=== PATIENT | female | born 1955 | race Caucasian/White ===

== ENCOUNTER 2018-01-24 13:43 | Emergency (ER) | payer MEDICARE, MEDICAID ==
[2018-01-24 14:46] LABS: ABS Basophils 0.1 10^3/ul (0-0.2); ABS Eosinophils 0.2 10^3/ul (0-0.6); ABS Lymphocytes 2.1 10^3/ul (1.0-4.8); ABS Monocytes 0.6 10^3/ul (0-0.8); ABS Neutrophils 5.1 10^3/ul (1.5-7.7); ABS Nucleated RBC 0 10^3/ul; Eosinophil % 2.3 % (0-6); Hematocrit 37 % (35-47); Hemoglobin 12.3 g/dl (12.0-16.0); Mean Corpuscular HGB Conc 33 g/dl (31-36); Mean Corpuscular Hemoglobin 30 pg (27-31); Mean Corpuscular Volume 92 fL (80-97); Mean Platelet Volume 8 um3 (7.4-10.4); Nucleated Red Blood Cells % 0; Platelet Count 263 10^3/ul (150-450); Red Blood Count 4.07 10^6/ul (4.0-5.4); Red Cell Distribution Width 14 % (10.5-15); White Blood Count 8.1 10^3/ul (3.5-10.8)
[2018-01-24 15:48] LABS: Urine Appearance Cloudy; Urine Blood Negative (Negative); Urine Color Yellow; Urine Ketones Negative (Negative); Urine Protein 1+(30 mg/dL) (Negative); Urine Specific Gravity 1.018 (1.010-1.030); Urine Urobilinogen Negative (Negative)
[2018-01-24 20:54] LABS: EGFR Non-African American 32.9 (>60)
--- NOTE | 2018-01-24 22:42 | ED ---
I, Estrellita Ocampo, scribed for Chelsey Crum MD on 01/24/18 at 2238 . Progress - Progress Note Progress Note: The pt is a sign out from Dr. Key at shift change at 19:00. - Consult/PCP Time Called: 01:45 Course/Dx - Course Course Of Treatment: The pt was discharged by [facility] at 22:38. - Diagnoses Provider Diagnoses: Adjustment disorder The documentation as recorded by the Terrence vines Stephanie accurately reflects the service I personally performed and the decisions made by , Chelsey Crum MD.
[2018-01-25 00:18] VITALS: BP 0/0
== END 2018-01-24 22:50 ==
LOC: ED 13:43
DX: F43.20 Adjustment disorder, unspecified (principal)
CPT/HCPCS: 36415; 80053; 80307; 80320; 81003; 81015; 84443; 85025; 93005; 99285; G0480

== ENCOUNTER 2019-03-08 16:52 | Inpatient (IN) | payer MEDICARE, MEDICAID ==
[2019-03-08] MEDS ORDERED: NS 0.9% 1000 ML** 1,000 ML IV ONE ×2 (17:03→18:10)
[2019-03-08] MEDS ORDERED: Albuterol 0.5% CONC NEB.SOL* 5 MG/ML 20 ml BOT INH ONE (17:07)
[2019-03-08] MEDS ORDERED: methylPREDNISolone SOD 40 MG* 1 ML VIAL IV ONE (17:12)
--- NOTE | 2019-03-08 17:14 | ED ---
Syncope/Near Syncope - HPI Summary HPI Summary: Patient is a 63 y/o F presenting to ED via ambulance with complaints of SOB, witnessed syncope, diaphoresis. EMS arrived at 1652 with patient, provider in room immediately to evaluate. EMS reports the patient experienced a syncopal episode at around 1610 while shopping in [facility]. EMS states that the patient has been "in-and-out of consciousness", had +4 episodes of syncope that would last around 30 seconds, with later episodes progressively growing in length of time. Bruising to knees bilaterally is noted as well. Patient later became SOB, EMS reports normal EKG, 176 BG, BP was 80/50s, patient was given a duoneb. PMHx of asthma, patient reports that she had been intubated for asthma previously. EMS reports audible wheezes. In room, BP is 64/47, pulse 106, 97.7 F, o2 sat 99 on 15 L. Periods of apnea are noted in the room. Level 5 caveat due to extremis. Home medications and allergies are reviewed. Home Medications Gabapentin CAP(*) [Neurontin 400 mg CAP(*)] 800 mg PO QID 03/08/19 [History Confirmed 03/08/19] Lisinopril TAB* [Prinivil TAB*] 5 mg PO DAILY 03/08/19 [History Confirmed ] Polyethylene Glycol 3350* [Miralax*] 17 gm PO DAILY 03/08/19 [History Confirmed 03/08/19] Zolpidem TAB* [Ambien TAB*] 10 mg PO BEDTIME PRN 03/08/19 [History Confirmed ] dilTIAZem HCl [Cartia Xt] 120 mg PO DAILY 03/08/19 [History Confirmed 03/08/19] Allergies Allergy/AdvReac Type Severity Reaction Status Date / Time ibuprofen Allergy Severe Swelling Verified 02/04/19 14:11 Of Face,Lips,& Throat latex Allergy Severe rash, red Verified 02/04/19 14:11 patches - History Of Current Complaint Time Seen by Provider: 03/08/19 16:58 Hx Obtained From: EMS Hx From Patient Unobtainable Due To: Extremis - LEVEL 5 CAVEAT Onset/Duration: Lasting Hours - onset around 1610 today, Still Present Timing: Intermittent Episode Lasting - syncope episodes lasted around 30 seconds Context: Witnessed Activity At Onset: Other - shopping at [employer] Aggravating Factor(s): Nothing Alleviating Factor(s): Nothing Associated Signs And Symptoms: Diaphoresis, Shortness Of Breath, Other - bilateral knee bruises - Allergies/Home Medications Allergies/Adverse Reactions: Allergies Allergy/AdvReac Type Severity Reaction Status Date / Time ibuprofen Allergy Severe Swelling Verified 02/04/19 14:11 Of Face,Lips,& Throat latex Allergy Severe rash, red Verified 02/04/19 14:11 patches Home Medications: Home Medications Gabapentin CAP(*) [Neurontin 400 mg CAP(*)] 800 mg PO QID 03/08/19 [History Confirmed 03/08/19] Lisinopril TAB* [Prinivil TAB*] 5 mg PO DAILY 03/08/19 [History Confirmed ] Polyethylene Glycol 3350* [Miralax*] 17 gm PO DAILY 03/08/19 [History Confirmed 03/08/19] Zolpidem TAB* [Ambien TAB*] 10 mg PO BEDTIME PRN 03/08/19 [History Confirmed ] dilTIAZem HCl [Cartia Xt] 120 mg PO DAILY 03/08/19 [History Confirmed 03/08/19] PMH/Surg Hx/FS Hx/Imm Hx Previously Healthy: No - UNKNOWN, LEVEL 5 CAVEAT DUE TO EXTREMIS Endocrine/Hematology History: Reports: Hx Anemia Denies: Hx Diabetes Cardiovascular History: Reports: Hx Coronary Artery Disease - STATES LEGS ARE SENSITIVE TO TOUCH, HANDS COOL, Hx Hypertension - ON MEDICATION FOR Denies: Hx Pacemaker/ICD Respiratory History: Reports: Hx Asthma - ROUTINE AND PRN INHALER GI History: Reports: Hx Gastroesophageal Reflux Disease Denies: Hx Jaundice History: Reports: Hx Acute Renal Failure, Hx Kidney Infection - HX OF, Hx Renal Disease - STAGE III, Other Problems/Disorders - CHRONIC KIDNEY DISEASE - DR. VELOZ FOLLOWS Musculoskeletal History: Reports: Hx Arthritis - all through body Denies: Hx Osteoporosis Sensory History: Reports: Hx Contacts or Glasses - glasses Denies: Hx Hearing Aid Opthamlomology History: Reports: Hx Contacts or Glasses - glasses Neurological History: Reports: Other Neuro Impairments/Disorders - STATE TWITCHES A LOT- STATES NOT KNEE- STATES PMD AWARE Psychiatric History: Reports: Hx Anxiety, Hx Depression Denies: Hx Eating Disorder, Hx Panic Disorder - Cancer History Hx Chemotherapy: No - Surgical History Surgery Procedure, Year, and Place: LEFT total knee replacement. right total knee replacment 2013. cornia tear repair both eyes 2011 Hx Anesthesia Reactions: No - Immunization History Date of Tetanus Vaccine: up to date per pt - Family History Known Family History: Positive: Unknown - LEVEL 5 CAVEAT DUE TO EXTREMIS - Social History Alcohol Use: Occasionally Substance Use Type: Reports: Prescribed, Other Substance Use Comment - Amount & Last Used: prescription meds Smoking Status (MU): Never Smoked Tobacco Have You Smoked in the Last Year: No Review of Systems - ROS Summary Review of Systems Summary: LEVEL 5 CAVEAT, EXTREMIS Positive: Skin Diaphoresis Positive: Shortness Of Breath Positive: Bruising - BILATERAL AT KNEES Positive: Syncope All Other Systems Reviewed And Are Negative: No - Comments Additional Review of Systems Comments: LEVEL 5 CAVEAT, EXTREMIS Physical Exam - Summary Physical Exam Summary: Appearance: Ill-appearing, no apparent pain distress, obese, severe respiratory distress, intermittent periods of drowsiness and decreased responsiveness ; hypotension Skin: Warm, color reflects adequate perfusion, dry Head: Normal Head/Face inspection, atraumatic Eyes: Conjunctiva clear ENT: Normal inspection Neck: Supple, no nodes, no JVD Respiratory: Audible wheezes, diffuse expiratory wheezes throughout Cardio: RRR, No murmur, pulses normal, brisk capillary refill Abdomen: Soft, nontender Bowel sounds: Present Musculoskeletal: Strength Intact/ROM intact, no calf tenderness, no edema. Psychological: Normal Neuro: Alert, muscle tone normal, no focal deficit; unable to provide full history due to intermittent unresponsiveness and extremis due to respiratory distress; GCS 14 Triage Information Reviewed: Yes Vital Signs On Initial Exam: Initial Vitals Temp Pulse Resp BP Pulse Ox 97.7 F 105 32 82/60 99 03/08/19 17:17 03/08/19 17:17 03/08/19 17:17 03/08/19 17:17 03/08/19 17:17 Vital Signs Reviewed: Yes Completion Of Physical Exam Limited Due To: Extremis, Level 5 - Broseley Coma Scale Best Eye Response: 4 - Spontaneous Best Motor Response: 6 - Obeys Commands Best Verbal Response: 4 - Confused Coma Scale Total: 14 Diagnostics - Laboratory Result Diagrams: 03/08/19 17:12 03/08/19 17:12 Lab Statement: Any lab studies that have been ordered have been reviewed, and results considered in the medical decision making process. - Radiology CXR Radiology Interpretation Completed By: Radiologist Summary of Radiographic Findings: IMPRESSION: No radiographic evidence for acute cardiopulmonary abnormality on this. portable chest x-ray. This report was reviewed by Dr. Yost. - CT BRAIN CT CT Interpretation Completed By: Radiologist Summary of CT Findings: IMPRESSION: 1. No acute intracranial abnormality. 2. Maxillary paranasal sinusitis. This report was reviewed by Dr. Yost. - EKG 1753 Cardiac Rate: NL - rate of 94 BPM EKG Rhythm: Sinus Rhythm ST Segment: Non-Specific Ectopy: None Summary of EKG Findings: EKG showed sinus rhythm with rate of 94 BPM, normal AVIVCT, normal QTc, left axis deviation (-37), non-specific ST, no ectopy. Re-Evaluation - Re-Evaluation First Eval Re-Evaluation Time: 17:20 Comment: Quincy Avelar arrived in ED, he reports that patient has a mental health history and that he has power of county attorney for patient. Course/Dx Course Of Treatment: Patient is a 63 y/o F presenting to ED via ambulance with complaints of SOB, witnessed syncope, diaphoresis. EMS arrived at 1652 with patient, provider in room immediately to evaluate. EMS reports the patient experienced a syncopal episode at around 1610 while shopping in [facility]. EMS states that the patient has been "in-and-out of consciousness", had +4 episodes of syncope that would last around 30 seconds, with later episodes progressively growing in length of time. Bruising to knees bilaterally is noted as well. Patient later became SOB, EMS reports normal EKG, 176 BG, BP was 80/50s, patient was given a duoneb. PMHx of asthma, patient reports that she had been intubated for asthma previously. EMS reports audible wheezes. In room, BP is 64/ 47, pulse 106, 97.7 F, o2 sat 99 on 15 L. Periods of apnea are noted in the room. Level 5 caveat due to extremis. Physical exam showed ill-appearance, no apparent pain distress, obese, severe respiratory distress, intermittent periods of drowsiness and decreased responsiveness, hypotension is noted. Audible wheezes, diffuse expiratory wheezes throughout. Unable to provide full history due to intermittent unresponsiveness and extremis due to respiratory distress, GCS 14. EKG showed sinus rhythm with rate of 94 BPM, normal AVIVCT, normal QTc, left axis deviation (-37), non-specific ST, no ectopy. CXR IMPRESSION: No radiographic evidence for acute cardiopulmonary abnormality on this. portable chest x-ray. BRAIN CT IMPRESSION: 1. No acute intracranial abnormality. 2. Maxillary paranasal sinusitis. Labs showed Hgb 11.7, carbon dioxide 21, BUN 36, creatinine 5.48, BUN/creatinine ratio 6.6, lactic acid 2.5, CRP 43.08, BNP 143. Blood gas showed pH 7.3, pO2 157, o2 sat 99.9, base excess - 4.8. UA negative, Influenza A, B negative. During ED course, patent received fluids, merrill-medrol 60 mg IV ED ONCE ONE, Magnesium sulfate 1 gm in 100 mls @ 200 mls/hr IV ONCE. Patient's case was discussed with Dr. Fede Watson at 1705, Dr. Watson will evaluate patient. 1707 - Dr. Watson in room to evaluate patient. 1720 - Dr. Watson admits patient to ICU at this time. - Diagnoses Provider Diagnoses: Respiratory distress, acute, Asthma exacerbation, Hypotension, Altered mental status - Physician Notifications Discussed Care of Patient With: Fede Watson Time Discussed With Above Provider: 17:06 Instructed by Provider To: Other - Patient's case was discussed with Dr. Fede Watson at 1705, Dr. Watson will evaluate patient. 1707 - Dr. Watson in room to evaluate patient. 1720 - Dr. Watson admits patient to ICU at this time. - Critical Care Time Critical Care Time: 30-74 min - 30 minutes CCT Discharge - Sign-Out/Discharge Documenting (check all that apply): Patient Departure - admit All imaging exams completed and their final reports reviewed: Yes Patient Received Moderate/Deep Sedation with Procedure: No - Discharge Plan Condition: Good Disposition: ADMITTED TO [facility] - Attestation Statements Document Initiated by Scribe: Yes Documenting Scribe: ALEJANDRA PANIAGUA Provider For Whom Kimiibe is Documenting (Include Credential): LATOSHA YOST MD Scribe Attestation: ALEJANDRA Amado, scribed for LATOSHA YOST MD on 03/09/19 at 0108. Status of Scribe Document: Ready
[2019-03-08 17:28] LABS: ABS Basophils 0.1 10^3/ul (0-0.2); ABS Eosinophils 0.3 10^3/ul (0-0.6); ABS Lymphocytes 2.4 10^3/ul (1.0-4.8); ABS Monocytes 0.7 10^3/ul (0-0.8); ABS Neutrophils 4.7 10^3/ul (1.5-7.7); ABS Nucleated RBC 0 10^3/ul; Eosinophil % 3.4 %; Hematocrit 36 % (33-41); Hemoglobin 11.7 g/dL (12.0-16.0); Lymphocyte % 29.9 %; Mean Corpuscular HGB Conc 32 g/dL (31-36); Mean Corpuscular Hemoglobin 31 pg (27-31); Mean Corpuscular Volume 96 fL (80-97); Mean Platelet Volume 8.7 fL (7.4-10.4); Nucleated Red Blood Cells % 0.1; Platelet Count 285 10^3/uL (150-450); Red Blood Count 3.75 10^6 /uL (3.70-4.87); Red Cell Distribution Width 14 % (10.5-15); White Blood Count 8.2 10^3/uL (3.5-10.8)
[2019-03-08] MEDS ORDERED: Magnesium Sulfate 1 GM IV* 1 GM/100 ML BAG IV ONE (17:35)
[2019-03-08] MEDS ORDERED: Albuterol HFA INHALER* 8 gm MDI INH PRN (17:35)
[2019-03-08 17:39] LABS: Activated Partial Thrombo Time 32.1 seconds (26.0-36.3); INR 0.95 (0.77-1.02)
[2019-03-08 17:45] LABS: Albumin 4.2 g/dL (3.2-5.2); Albumin/Globulin Ratio 1.4 (1-3); BUN/Creatinine Ratio 6.6 (8-20); C Reactive Protein 43.08 mg/L (<8.01); Calcium 9.3 mg/dL (8.6-10.3); EGFR African American 9.6 (>60); EGFR Non-African American 7.9 (>60); Potassium 4.4 mmol/L (3.5-5.0); Total Bilirubin 0.5 mg/dL (0.2-1.0); Total Protein 7.2 g/dL (6.4-8.9)
[2019-03-08 17:48] LABS: Troponin I 0.01 ng/mL (<0.04)
[2019-03-08 17:50] LABS: CKMB ng/mL 3.1 ng/mL (0.6-6.3)
[2019-03-08] MEDS ORDERED: NS 0.9% 1000 ML** 1,000 ML IV SCH (18:15)
[2019-03-08 18:49] LABS: Influenza A Molecular NEGATIVE (Negative); Influenza B Molecular NEGATIVE (Negative)
[2019-03-08 18:50] LABS: Urine Appearance Cloudy; Urine Bilirubin Negative (Negative); Urine Blood Negative (Negative); Urine Color Amber; Urine Glucose Negative (Negative); Urine Ketones Negative (Negative); Urine Nitrite Negative (Negative); Urine Protein Negative (Negative); Urine Specific Gravity 1.028 (1.010-1.030); Urine Urobilinogen Negative (Negative)
[2019-03-08] MEDS: Albuterol/Ipratropium NEB.SOL* Albuterol 2.5 MG/Ipratropium 0.5 MG 3 ML INH SCH (19:00)
--- NOTE | 2019-03-08 20:05 | HP ---
ADMITTING HISTORY AND PHYSICAL: DATE OF ADMISSION: 03/08/19 REASON FOR ADMISSION: Acute exacerbation of asthma. HISTORY OF PRESENT ILLNESS: This patient is a 63-year-old white female with a history of asthma, obesity, anemia, hypertension, chronic renal failure (last creatinine in 2s in 2013), osteoarthritis (s/p left knee replacement), and undisclosed psychiatric condition who was brought to the emergency room with acute onset of wheezing and shortness of breath. In the ED, the patient received bronchodilator treatments with clearing, but blood pressure was noted to be low at 80/60. The patient was alert at that time and denies recent cold or allergies. OUTPATIENT MEDICATIONS: 1. Lisinopril 5 mg daily. 2. Albuterol 2 puffs q.4 hours. 3. Diltiazem 120 mg daily. 4. Wellbutrin 150 mg in the morning. 5. Gabapentin 800 mg 4 times a day. 6. Omeprazole 20 mg twice a day. 7. Advair 1 puff twice a day. 8. Ambien 10 mg at bedtime. 9. Flexeril 10 mg 3 times a day p.r.n. 10. Cymbalta 60 mg in the morning. DRUG ALLERGIES: Include IBUPROFEN, which causes swelling of the face, lips, and throat and LATEX allergy, which causes a rash. REVIEW OF SYSTEMS: Noncontributory. PHYSICAL EXAMINATION GENERAL: The patient was awake, oriented, and appeared comfortable. VITAL SIGNS: Temp was 97.7, heart rate 101, blood pressure 82/60, respiratory rate 18, O2 sat 100% on an OxyMask at 5 L per minute. HEENT: Revealed no evidence of pharyngeal obstruction. NECK: Supple. LUNGS: Entirely clear. There was no wheezing heard. CARDIAC: Exam revealed a regular rhythm and there were no murmurs or rubs. ABDOMEN: Obese, nontender. EXTREMITIES: Warm. Not cyanotic and not edematous. DIAGNOSTIC STUDIES/LAB DATA: Admission laboratory data revealed a creatinine of 5.4, a BUN of 36, lactic acid of 2.5, sodium and potassium were normal, anion gap was only 11, C-reactive protein was 43. Albumin normal at 4.2. White count was 8.2, hemoglobin 11.7, hematocrit 36, platelet count 285. Chest x-ray showed clear lung massey and a normal-appearing cardiac silhouette. EKG revealed sinus rhythm with Q waves in leads III and aVF suggesting possible inferior old ND without acute ST or T-wave changes, corrected QT interval was 482. IMPRESSION: The patient was brought in with apparent asthma attack, but breathing was entirely normal by the time I reached her and the ICU admission was prompted by the low blood pressure. It appears the major problem in this case is renal insufficiency, which is probably related to the hypertension and may be a reflection of poor compliance with antihypertensive meds. I think that a psychiatric condition plays a significant role here not only in the development of the renal failure but also possibly in the asthma presentation ( ? Munchausen's). MANAGEMENT PLAN: We will continue the bronchodilator treatment and steroid therapy for the acute asthma and we will consult the renal and psychiatry services for further evaluation. In the meantime, we can ultrasound the kidneys and monitor her urine output as we hydrate. CRITICAL CARE TIME: 60 minutes. [id number]/CPS #: [id number] KUNAL
[2019-03-08] MEDS: methylPREDNISolone SOD 40 MG* 1 ML VIAL IV SCH (20:31)
[2019-03-08] MEDS: ALPRAZolam TAB* 0.5 MG PO SCH (20:31)
[2019-03-08] MEDS: guaiFENesin ER TAB 600 MG PO SCH (20:32)
[2019-03-08] MEDS: Cyclobenzaprine TAB* 10 MG PO PRN (20:32)
[2019-03-08] MEDS: Mometasone/Formoter 200/5 MDI INH SCH (20:42)
[2019-03-08] MEDS: Heparin VIAL(*) 5000 UNITS/ML VIAL (FIVE THOUSAND) SUBCUT SCH (22:20)
[2019-03-08] MEDS: Gabapentin CAP(*) 400 MG PO SCH (22:20)
--- NOTE | 2019-03-09 00:41 | PN ---
Hospitalist Progress Note Date of Service: 03/09/19 I was called to evaluate Ms. Watson for a change in behavior. She received her evening meds (flexeril, xanax, gabapentin) in the past 3 hours and when her nurse woke her up because her bp was low, her bp increased but she was unable to answer orientation questions. I came to see her and she appropriately responded to me entering her room, knows her name and that she is in [place], but cannot describe further detail about where we are and describes shapes of buildings and months. She is very alert but inappropriate in our conversation. Her neuro exam is entirely in tact and her vitals are stable. I suspect these changes are related to polypharmacy especially given renal impairment but will add on a full tox screen for completion.
[2019-03-09] MEDS: Albuterol/Ipratropium NEB.SOL* Albuterol 2.5 MG/Ipratropium 0.5 MG 3 ML INH SCH ×4 (01:28→19:59)
[2019-03-09 02:42] LABS: Urine Benzodiazepine Screen Presumptive Positive (None Detect); Urine Opiates Screen Presumptive Positive (None Detect)
[2019-03-09 02:54] LABS: Acetaminophen < 15 mcg/mL; Alcohol < 10 mg/dL (<10); Salicylate < 2.50 mg/dL (<30)
[2019-03-09] MEDS: Heparin VIAL(*) 5000 UNITS/ML VIAL (FIVE THOUSAND) SUBCUT SCH ×3 (05:19→21:06)
[2019-03-09] MEDS: methylPREDNISolone SOD 40 MG* 1 ML VIAL IV SCH (05:19)
[2019-03-09 05:58] LABS: ABS Basophils 0 10^3/ul (0-0.2); ABS Eosinophils 0 10^3/ul (0-0.6); ABS Lymphocytes 0.7 10^3/ul (1.0-4.8); ABS Monocytes 0.1 10^3/ul (0-0.8); ABS Neutrophils 5.3 10^3/ul (1.5-7.7); ABS Nucleated RBC 0 10^3/ul; Eosinophil % 0.1 %; Hematocrit 35 % (33-41); Hemoglobin 11.4 g/dL (12.0-16.0); Lymphocyte % 11.2 %; Mean Corpuscular HGB Conc 33 g/dL (31-36); Mean Corpuscular Hemoglobin 32 pg (27-31); Mean Corpuscular Volume 97 fL (80-97); Mean Platelet Volume 8.5 fL (7.4-10.4); Nucleated Red Blood Cells % 0.1; Platelet Count 245 10^3/uL (150-450); Red Blood Count 3.59 10^6 /uL (3.70-4.87); Red Cell Distribution Width 14 % (10.5-15)
[2019-03-09 06:12] LABS: Albumin 3.9 g/dL (3.2-5.2); Albumin/Globulin Ratio 1.4 (1-3); BUN/Creatinine Ratio 8.9 (8-20); Calcium 8.3 mg/dL (8.6-10.3); EGFR African American 13.2 (>60); EGFR Non-African American 10.9 (>60); Globulin 2.8 g/dL (2-4); Total Bilirubin 0.4 mg/dL (0.2-1.0); Total Protein 6.7 g/dL (6.4-8.9)
[2019-03-09 06:15] LABS: Potassium 5.3 mmol/L (3.5-5.0)
[2019-03-09] MEDS: Mometasone/Formoter 200/5 MDI INH SCH ×2 (07:37→19:59)
[2019-03-09] MEDS: guaiFENesin ER TAB 600 MG PO SCH ×2 (09:12→20:49)
[2019-03-09] MEDS: BuPROPion XL* 150 MG TAB.XL PO SCH (09:12)
[2019-03-09] MEDS: Gabapentin CAP(*) 400 MG PO SCH ×4 (09:12→20:48)
[2019-03-09] MEDS: ALPRAZolam TAB* 0.5 MG PO SCH ×2 (09:13→20:49)
[2019-03-09] MEDS: DULoxetine DR CAP* 60 MG CAP.DR PO SCH (09:13)
[2019-03-09] MEDS: Polyethylene Glycol 3350* 17 GM PACKET PO SCH (09:13)
[2019-03-09] MEDS: Pantoprazole TAB * 40 MG TAB PO SCH (09:13)
[2019-03-09] MEDS ORDERED: NS 0.9% 1000 ML** 1,000 ML IV SCH (10:34)
--- NOTE | 2019-03-09 10:41 | PN ---
Date of Service: 02/06/19 Critical Care Services: No complaints this AM other than hunger. Creat down into the 4s, and BP up into normal range. I have held her antihypertensive meds. Vital Signs: Temp Pulse Resp BP SpO2 FiO2 97.7 F 88 16 112/83 98 100 Physical Exam: Gen:Alert, oriented, asking for food and meds. Lungs: No wheezing or other adventitious sounds, Cardiac: Reg rhythm. No rubs. Extremities:No cyanosis or edema. Neur: No asterixis. Fluid Balance (Past 24 Hours): 03/09/19 06:59 Intake Total 2928 Output Total 450 Balance 2478 Weight 279 lb 12.8 oz Intake: IV Fluids 2928 NS (0.9%) 828 Output: Li 450 Labs: 03/09/19 03/09/19 03/09/19 01:40 01:40 05:15 WBC 6.0 RBC 3.59 L Hgb 11.4 L Hct 35 MCV 97 MCH 32 H MCHC 33 RDW 14 Plt Count 245 Salicylates < 2.50 Urine Opiates Screen Presumptive positive A Acetaminophen < 15 Ur Barbiturates Screen None detected Ur Phencyclidine Scrn None detected Ur Amphetamines Screen None detected U Benzodiazepines Scrn Presumptive positive A Urine Cocaine Screen None detected U Cannabinoids Screen None detected Serum Alcohol < 10 Influenza A (Rapid) Influenza B (Rapid) 03/09/19 05:15 Sodium 137 Potassium 5.3 Chloride 109 Carbon Dioxide 19 L Anion Gap 9 BUN 37 Creatinine 4.16 Glucose 144 H Lactic Acid Calcium 8.3 L Total Bilirubin 0.40 AST 13 ALT 13 Alkaline Phosphatase 83 Total Creatine Kinase CK-MB (CK-2) Troponin I C-Reactive Protein B-Natriuretic Peptide Total Protein 6.7 Albumin 3.9 Globulin 2.8 Albumin/Globulin Ratio 1.4 Studies: None. Ultrasound of kidneys ordered. Nutrition: Started low sodium diet Impression: 1. No problems with asthma this AM - I still feel there is a psych component to the asthma. 2. No signs of uremia. The creatinine has improved with hydration, but is still at the level where the Cr CL is < 10 mL/min. Plan: Will send to floor, with consults to psych and nephrology.
[2019-03-09] MEDS: predniSONE TAB* 20 MG PO SCH (11:36)
[2019-03-09] MEDS: Cyclobenzaprine TAB* 10 MG PO PRN ×2 (11:48→16:05)
[2019-03-10] MEDS: Albuterol/Ipratropium NEB.SOL* Albuterol 2.5 MG/Ipratropium 0.5 MG 3 ML INH SCH ×3 (01:57→12:20)
[2019-03-10] MEDS: Heparin VIAL(*) 5000 UNITS/ML VIAL (FIVE THOUSAND) SUBCUT SCH ×2 (05:51→13:06)
[2019-03-10 05:52] LABS: BUN/Creatinine Ratio 20.2 (8-20); Calcium 8.4 mg/dL (8.6-10.3); EGFR Non-African American 25.6 (>60)
[2019-03-10 05:59] LABS: Potassium 5.5 mmol/L (3.5-5.0)
[2019-03-10] MEDS: Mometasone/Formoter 200/5 MDI INH SCH (07:12)
--- NOTE | 2019-03-10 07:35 | PN ---
Subjective Date of Service: 03/10/19 Interval History: Ms. Watson reports feeling much better today and she is eager for discharge to home. She denies chest pain or SOB. She feels that she had good oral intake prior to admission, so no clear cause of dehydration noted. Objective Active Medications: Albuterol (Ventolin Hfa Inhaler*) 2 puff INH Q4HR PRN Albuterol/Ipratropium (Duoneb (Albuterol 2.5 Mg/Ipratropium 0.5 Mg)) 1 neb INH [id number] AWAKE ROSIE Alprazolam (Xanax Tab*) 1 mg PO BID ROSIE Bupropion HCl (Wellbutrin Xl *) 150 mg PO QAM ROSIE Cyclobenzaprine HCl (Flexeril Tab*) 10 mg PO TID PRN Duloxetine HCl (Cymbalta Cap*) 60 mg PO QAM ROSIE Gabapentin (Neurontin Cap(*)) 800 mg PO QID ROSIE Guaifenesin (Mucinex*) 600 mg PO BID ROSIE Heparin Sodium (Porcine) (Heparin Vial(*)) 5,000 units SUBCUT Q8HR ROSIE Sodium Chloride (Ns 0.9% 1000 Ml) 1,000 mls @ 50 mls/hr IV PER RATE ROSIE Mometasone Furoate/Formoterol Fumar (Dulera 200/5 Mdi*) 2 puff INH BID ROSIE Pantoprazole Sodium (Protonix Tab*) 40 mg PO DAILY ROSIE Polyethylene Glycol/Electrolytes (Miralax*) 17 gm PO DAILY ROSIE Prednisone (Deltasone Tab*) 40 mg PO DAILY [facility] Vital Signs: Temp Pulse Resp BP Pulse Ox 97.7 F 101 18 97/58 98 03/10/19 00:00 03/10/19 07:12 03/10/19 07:12 03/10/19 00:00 03/10/19 07:12 Oxygen Devices in Use Now: None Appearance: Female sitting up in chair in NAD Eyes: No Scleral Icterus Ears/Nose/Mouth/Throat: Mucous Membranes Moist Neck: Trachea Midline Respiratory: Symmetrical Chest Expansion and Respiratory Effort, Clear to Auscultation Cardiovascular: NL Sounds; No Murmurs; No JVD, No Edema Extremities: No Edema Skin: No Rash or Ulcers Neurological: Alert and Oriented x 3, NL Muscle Strength and Tone Nutrition: Taking PO's Result Diagrams: 03/09/19 05:15 03/10/19 05:22 Microbiology and Other Data: . Assess/Plan/Problems-Billing Assessment: Ms. Watson is a 63 yo F with a PMH of asthma, hypertension, chronic kidney disease who was admitted on 03/08/19 with an acute asthma exacerbation and hypotension. - Patient Problems (1) Acute on chronic renal failure Comment: - Resolved with hydration and holding of BP meds - Suspect pre-renal state, unclear how she became dehydrated, ? polypharmacy with some confusion but no clear evidence - Plan to hold BP meds until follow up with PCP (2) Asthma exacerbation Comment: - Resolving with bronchodilator and steroid therapy - SpO2 100% at rest on room air (3) Hypotension Comment: - SBP 80s in the ED, now 90-120s. - Resolved with IVF. - Hold diltiazem and lisinopril. (4) Anxiety Comment: - With depression - Continue alprazolam, duloxetine and welbutrin (5) Chronic pain Comment: - Continue gabapentin and flexeril, oxycodone on hold due to hypotension and confusion noted the evening of 03/08 which was attributed to polypharmacy (6) DVT prophylaxis Comment: - Heparin SQ (7) Full code status Comment: Status and Disposition: Inpatient. Discharge to home.
[2019-03-10] MEDS: BuPROPion XL* 150 MG TAB.XL PO SCH (10:12)
[2019-03-10] MEDS: DULoxetine DR CAP* 60 MG CAP.DR PO SCH (10:12)
[2019-03-10] MEDS: predniSONE TAB* 20 MG PO SCH (10:13)
[2019-03-10] MEDS: guaiFENesin ER TAB 600 MG PO SCH (10:13)
[2019-03-10] MEDS: Gabapentin CAP(*) 400 MG PO SCH ×2 (10:13→13:06)
[2019-03-10] MEDS: ALPRAZolam TAB* 0.5 MG PO SCH (10:13)
[2019-03-10] MEDS: Pantoprazole TAB * 40 MG TAB PO SCH (10:13)
[2019-03-10] MEDS: Polyethylene Glycol 3350* 17 GM PACKET PO SCH (10:13)
[2019-03-10 12:44] VITALS: BP 144/66
--- NOTE | 2019-03-10 21:08 | DS ---
CC: Dr. Lainez * DISCHARGE SUMMARY: DATE OF ADMISSION: 03/08/19 DATE OF DISCHARGE: 03/10/19 PRIMARY CARE PHYSICIAN: Dr. Lainez. ATTENDING PHYSICIAN: Dr. Sourav Dubois * (dictation provided by Tiny Jeong NP). PRIMARY DIAGNOSES: 1. Syncopal episodes. 2. Asthma exacerbation, now resolved. 3. [id number] kidney failure, now resolved. 4. Hypotension, now resolved. SECONDARY DIAGNOSES: 1. History of asthma. 2. Hypertension. 3. Chronic kidney disease stage III to IV. 4. Chronic pain. 5. Anxiety. 6. Depression. 7. Gastroesophageal reflux disease. MEDICATIONS AT THE TIME OF DISCHARGE: 1. Prednisone 10 mg via taper as noted on prescription. 2. Albuterol 2 puffs inhaled q.4 hours p.r.n. 3. Wellbutrin 150 mg p.o. daily. 4. Gabapentin 800 mg 4 times a day. 5. Omeprazole 20 mg twice daily. 6. Advair 1 puff twice daily. 7. Ambien 10 mg at bedtime. 8. Flexeril 10 mg 3 times a day p.r.n. 9. Cymbalta 60 mg in the morning. Please note the patient is to hold diltiazem and lisinopril until followup with her primary care physician. HOSPITAL COURSE: Ms. Watson presented to the emergency room on 03/08/19 via EMS after having multiple reports of syncopal episodes lasting approximately 30 seconds each. She was noted to be wheezing and appeared to be in an asthma exacerbation via EMS and she was also having periods of apnea. Please see the dictated H and P from Dr. Fede Watson for complete details. In the emergency room, she was found to have a blood pressure as low as 80/60. She did respond well to treatments with nebulizers and steroids in the ED and only required 2 L nasal cannula. In the ED, the patient was noted to have acute renal failure. Her creatinine was 5.48 with a BUN of 36. Her blood gas showed a pH of 7.30, pCO2 of 44, pO2 of 157, and bicarb of 21.2. Her lactic acid was 2.5, CRP 43.08. Because of these episodes of syncope, the patient had a CT brain, which showed "no acute intracranial abnormality and maxillary paranasal sinusitis." She also had a chest x-ray, which showed no radiographic evidence for acute cardiopulmonary abnormality. The patient was admitted to the intensive care unit and monitored overnight. With IV fluids, her creatinine improves to 4.16 by the following day. She had good resolution of her hypotension with the blood pressure running in the 90s to 100s primarily with holding of her diltiazem and lisinopril. Today, Ms. Watson is doing much better. She is off of oxygen. She has a complete resolution of her kidney failure with a creatinine of 1.98 and a BUN of 40. She states that she is feeling much better and is eager for discharge to home. I will note that during this hospitalization we held her diltiazem and lisinopril and with this her blood pressure this morning is 121/68. I am not quite sure what led to the events leading to her presentation, but given that her blood pressure is well controlled off her antihypertensive at this time, I would like to hold them until she follows up with her primary care. She states that she will be able to take her blood pressure at home. I have encouraged her to resume diltiazem only if her blood pressure systolically is greater than 160. I suspect that significant portion of her symptoms may have been related to polypharmacy. I am recommending to her that she decrease her oxycodone, pregabalin, and alprazolam and I would recommend that Dr. Lainez consider decreasing the routine prescription of this as well. Ms. Watson is medically stable for discharge to home. The patient was monitored on telemetry unit and had no evidence of arrhythmias to explain her syncope. DISPOSITION: Home. DIET: Low fat, low salt. ACTIVITY: As tolerated. FOLLOWUP PLANS: 1. The patient has been instructed to check her blood pressure at home and provide those readings to Dr. Lainez, at which time decision can be made about resumption of antihypertensives. 2. The patient has been asked to follow up with Dr. Lainez regarding adjustment of polypharmacy to prevent any further episodes of confusion, which we believe may have precipitated this admission. TIME SPENT: Approximately 60 minutes were spent on the discharge of this patient; more than half of the time was spent with the patient at the bedside reviewing the events leading up to this hospitalization, performing the physical examination, and reviewing the plan of care. TINY JEONG SOLAR INSTALLER [place] [id number]/[facility] #: [id number] [facility] CENTERMary
== END 2019-03-10 16:32 | disposition home or self-care (01) | DRG 202 ==
LOC: ED 16:52 → ICU 17:29 → MED 03-09 12:11
PROVIDERS: ADMIT Internal Medicine Critical Care Medicine; ATTEND Student in an Organized Health Care Education/Training Program
DX: J45.901 Unspecified asthma with (acute) exacerbation (principal); N17.9 Acute kidney failure, unspecified; Z68.43 Body mass index [BMI] 50.0-59.9, adult; N18.4 Chronic kidney disease, stage 4 (severe); I95.9 Hypotension, unspecified; I12.9 Hypertensive chronic kidney disease with stage 1 through stage 4 chronic kidney disease, or unspecified chronic kidney disease; R55 Syncope and collapse; G89.29 Other chronic pain; F41.9 Anxiety disorder, unspecified; F32.9 Major depressive disorder, single episode, unspecified; K21.9 Gastro-esophageal reflux disease without esophagitis; E66.9 Obesity, unspecified; D64.9 Anemia, unspecified; M19.90 Unspecified osteoarthritis, unspecified site; Z96.652 Presence of left artificial knee joint; F99 Mental disorder, not otherwise specified; Z79.51 Long term (current) use of inhaled steroids; Z79.899 Other long term (current) drug therapy; Z88.6 Allergy status to analgesic agent; Z91.040 Latex allergy status
CPT/HCPCS: 36415; 70450; 71045; 80048; 80053; 80307; 80320; 80329; 81003; 82550; 82553; 82803; 83605; 83880; 84484; 85025; 85610; 85730; 86140; 87040; 87641; 93005; 94640; 99285; A9270-GY; G0480; J1644; J2920; J3475; J7512; J7611

== ENCOUNTER 2019-09-12 09:15 | Inpatient (IN) | payer MEDICARE, MEDICAID ==
[~2019-09-12 09:15] MED LIST: Buffered Lidocaine 1% SYRIN* 1 ML/SYRINGE INTRADERM ONE; Dexamethasone IV* 4 MG/ML 1 ML (4 MG) IV SLOW PU ONE; Lactated Ringers 1000 ML Bag* 1,000 ML IV SCH
--- OUTSIDE RECORDS SUMMARY | 2019-09-12 10:09 | XMS REPORT | Continuity of Care Document ---
:1955 External Reference #:[id number] Author Name Bartolome Fischer MD (transmitted by agent of provider Gianna Marley) Address [address] [place] [address] Care Team Providers Name Role Phone Juan R Mak MD - Physical Care Team Information [employer] [facility] Shaan Lainez MD - Family Medicine Care Team Information [employer] [phone] Problems Active Problems Provider Date Arthralgia of the lower leg Sarah Shaw M.D. Onset: 07/31/2015 Abnormal gait Sarah Shaw M.D. Onset: 07/31/2015 H/O: depression Betty Mendieta M.D. Onset: 02/24/2016 Strain of rotator cuff capsule Katlyn Morton MD Onset: 03/13/2018 Closed fracture of glenoid cavity of left Katlyn Morton MD Onset: 03/13/2018 scapula Localized, primary osteoarthritis of the Katlyn Morton MD Onset: 03/13/2018 shoulder region Rotator cuff tear arthropathy Katlyn Morton MD Onset: 03/26/2019 Other fracture of shaft of left fibula, Katlyn Morton MD Onset: 08/08/2019 subsequent encounter for closed fracture with routine healing Nonunion of fracture Bartolome Fischer MD Onset: 09/02/2019 Social History Type Date Description Comments Sex Unknown Smokeless Tobacco Never Used Smokeless Tobacco ETOH Use Rarely consumes alcohol Tobacco Use Start: Unknown Patient has never smoked Recreational Drug Use Negative For Denies Drug Use Tobacco Use Start: Unknown Patient has never smoked Tobacco Use Start: Unknown Is exposed to second hand smoke at home. Smoking Status Reviewed: 09/02/19 Is exposed to second hand smoke at home. Exercise Type/Frequency Does not exercise Exercise Type/Frequency Does not exercise Allergies, Adverse Reactions, Alerts Active Allergies Reaction Severity Comments Date Ibuprofen Abdominal pain, Facial swelling 02/05/2014 Medications Active Medications SIG Qnty Indications Ordering Date Provider Amoxicillin take 4 tabs by 4caps Sarah Shaw, 10/06/2016 500mg Capsules mouth 1 hour M.D. prior to dental work Vitamin D take 3 by mouth Betty Mendieta, 03/23/2016 1000Unit Tablets each day M.D. Omeprazole 1 by mouth 90caps Unknown 20mg Capsules DR every day Proair HFA 2 puffs by 1units Unknown 108(90Base) mouth every 4 mcg/Act Aerosol hours as needed Oxycodone-Acetaminophen 1 by mouth Unknown every 6 hours 7.5-325mg Tablets as needed pain Advair Diskus 1 puff twice a Unknown 500-50mcg/Dose day when sick Aerosol Cyclobenzaprine HCL Take One Tablet Unknown 10mg By Mouth Three Tablets Times A Day as Needed Olopatadine HCL Instill 2 Drops Unknown 0.1% Solution Into Both Eyes Two Times A Day Alprazolam take 1 tablet Unknown 1mg Tablets by mouth twice a day Duloxetine HCL take 3 capsule Unknown 20mg Caps DR by mouth once Part daily Zolpidem Tartrate ER take 1 tablet Unknown 12.5mg by mouth at Tablets ER bedtime if needed maximum daily dose of 1 Gabapentin 1 tab by mouth Unknown 800mg Tablets three times a day Cartia XT Take One Unknown 180mg Caps ER 24HR Capsule By Mouth Every Day Medications Administered in Office Medication SIG Qnty Indications Ordering Provider Date Triamcinolone (Kenalog) Katlyn Morton MD 03/26/2019 Injection Triamcinolone (Kenalog) Katlyn Morton MD 12/27/2018 Injection Hyalagan Or Supartz, For Katlyn Morton MD 09/25/2018 Intra-Articular Inject Per Dose Injection Hyalagan Or Ángel, Hasmukh Morton MD 09/18/2018 Intra-Articular Inject Per Dose Injection Hyalagan Or Supartz, For Katlyn Morton MD 09/11/2018 Intra-Articular Inject Per Dose Injection Hyalagan Or Supartz, For Katlyn Morton MD 09/04/2018 Intra-Articular Inject Per Dose Injection Hyalagan Or Supartz, For Katlyn Morton MD 08/28/2018 Intra-Articular Inject Per Dose Injection Triamcinolone (Kenalog) Katlyn Morton MD 06/29/2018 Injection Depomedrol 80MG Sarah Shaw M.D. 02/05/2014 Injection PPD Nelia Zarate, 01/18/2013 Injection N.P. PPD Nelia Zarate, 02/02/2012 Injection N.P. Immunizations Description No Information Available Vital Signs Date Vital Result Comment 09/02/2019 11:00am Height 60 inches 5'0" Weight 258.00 lb Heart Rate 108 /min BP Systolic 120 mmHg BP Diastolic 88 mmHg Respiratory Rate 18 /min Pain Level 5 BMI (Body Mass Index) 50.4 kg/m2 08/27/2019 11:32am Height 60 inches 5'0" Weight 258.00 lb Heart Rate 92 /min BP Systolic 148 mmHg BP Diastolic 110 mmHg Pain Level 8 BMI (Body Mass Index) 50.4 kg/m2 Results Test Date Facility Test Result H/L Range Note Xray 07/19/2019 [facility] US Renal <pending> [address] [place] [address] [phone] Basic Metabolic 07/18/2019 [facility] Sodium 138 mmol/L Normal 135-[address] [place] [address] [phone] Chloride 102 mmol/L Normal 101-111 Co2 Carbon Dioxide 32 mmol/L Normal 22-32 Glucose 90 mg/dL Normal 70-100 Blood Urea Nitrogen 17 mg/dL Normal 6-24 Creatinine 1.27 mg/dL High 0.51-0.95 BUN/Creatinine Ratio 13.4 Normal 8-20 Calcium 9.5 mg/dL Normal 8.6-10.3 Egfr Non- 42.6 >60 Egfr 51.6 >60 1 Potassium 4.4 mmol/L Normal 3.5-5.0 2 Anion Gap 4 mmol/L Normal 2-11 Urinalysis Profile 07/18/2019 [facility] Urine Color Yellow [address] [place] [address] [phone] Urine Appearance Clear Urine Specific Wyatt 1.019 Normal 1.010-1.030 Urine pH 5.0 Normal 5-9 Urine Urobilinogen Negative Negative Urine Ketones Negative Negative Urine Protein Negative Negative Urine Leukocytes Negative Negative Urine Blood Negative Negative Urine Nitrite Negative Negative Urine Bilirubin Negative Negative Urine Glucose Negative Negative CBC Auto 07/18/2019 [facility] White Blood 5.9 10^3/uL Normal 3.5-10.[address] [place] [address] [phone] Red Blood Count 4.34 10^6/uL Normal 3.70-4.87 Hemoglobin 12.8 g/dL Normal 12.0-16.0 Hematocrit 40 % Normal 35-47 Mean Corpuscular Volume 91 fL Normal 80-97 Mean Corpuscular Hemoglobin 30 pg Normal 27-31 Mean Corpuscular HGB Conc 33 g/dL Normal 31-36 Red Cell Distribution Width 15 % Normal 10-15 Platelet Count 356 10^3/uL Normal 150-450 Mean Platelet Volume 8.3 fL Normal 7.4-10.4 Abs Neutrophils 2.6 10^3/uL Normal 1.5-7.7 Abs Lymphocytes 2.2 10^3/uL Normal 1.0-4.8 Abs Monocytes 0.5 10^3/uL Normal 0-0.8 Abs Eosinophils 0.6 10^3/uL Normal 0-0.6 Abs Basophils 0.1 10^3/uL Normal 0-0.2 Abs Nucleated RBC 0.0 10^3/uL Granulocyte % 43.6 % Lymphocyte % 37.6 % Monocyte % 8.5 % Eosinophil % 9.4 % Basophil % 0.9 % Nucleated Red Blood Cells % 0.1 Laboratory test 07/18/2019 [facility] Total Protein 21 mg/dL finding [address] [address] [phone] Creatinine Random Urine 149.52 mg/dL Protein 07/18/2019 [facility] Total 7.3 g/dL 6.3 - Electrophoresis [address] Protein(Pep) 7.9 [place] [address] [phone] Albumin 3.4 g/dL 3.4-4.7 Alpha-1 Globulin 0.3 g/dL 0.1-0.3 Alpha-2 Globulin 1.0 g/dL 0.6-1.0 Beta Globulin 1.2 g/dL 0.7-1.2 Gamma Globulin 1.4 g/dL 0.6-1.6 Albumin/Globulin Ratio 0.89 Impression See Comment 3 [place]/Lambda Free 07/18/2019 [facility] [place] Free 3.67 mg/dL Abnormal 4 Light Chains Ser [address] [place] [address] [phone] Lambda Free Light Chain 2.63 mg/dL 5 [place]/Lambda Free Light Chain 1.40 6 CBC Auto 07/10/2019 [facility] White Blood 8.1 10^3/uL Normal 3.5-10.[address] [place] [address] [phone] Red Blood Count 4.31 10^6/uL Normal 3.70-4.87 Hemoglobin 13.1 g/dL Normal 12.0-16.0 Hematocrit 40 % Normal 35-47 Mean Corpuscular Volume 93 fL Normal 80-97 Mean Corpuscular Hemoglobin 31 pg Normal 27-31 Mean Corpuscular HGB Conc 33 g/dL Normal 31-36 Red Cell Distribution Width 15 % Normal 10-15 Platelet Count 333 10^3/uL Normal 150-450 Mean Platelet Volume 9.2 fL Normal 7.4-10.4 Abs Neutrophils 4.6 10^3/uL Normal 1.5-7.7 Abs Lymphocytes 2.3 10^3/uL Normal 1.0-4.8 Abs Monocytes 0.9 10^3/uL High 0-0.8 Abs Eosinophils 0.2 10^3/uL Normal 0-0.6 Abs Basophils 0.1 10^3/uL Normal 0-0.2 Abs Nucleated RBC 0.0 10^3/uL Granulocyte % 57.3 % Lymphocyte % 28.0 % Monocyte % 11.2 % Eosinophil % 2.7 % Basophil % 0.8 % Nucleated Red Blood Cells % 0.0 Basic Metabolic 07/10/2019 [facility] Sodium 139 mmol/L Normal 135-[address] [place] [address] [phone] Potassium 4.2 mmol/L Normal 3.5-5.0 Chloride 99 mmol/L Low 101-111 Co2 Carbon Dioxide 31 mmol/L Normal 22-32 Anion Gap 9 mmol/L Normal 2-11 Glucose 94 mg/dL Normal 70-100 Blood Urea Nitrogen 30 mg/dL High 6-24 Creatinine 3.08 mg/dL High 0.51-0.95 BUN/Creatinine Ratio 9.7 Normal 8-20 Calcium 9.5 mg/dL Normal 8.6-10.3 Egfr Non- 15.3 >60 Egfr 18.6 >60 7 Xray 07/10/2019 [facility] US Renal Complete <pending> [address] [place] [address] [phone] 1 Because ethnic data is not always readily available, this report includes an eGFR for both -Americans and non- Americans. The National Kidney Disease Education Program (NKDEP) does not endorse the use of the MDRD equation for patients that are not between the ages of 18 and 70, are , have extremes of body size, muscle mass, or nutritional status, or are non- or non-. According to the National Kidney Foundation, irrespective of diagnosis, the stage of the disease is based on the level of kidney function: Stage Description GFR(mL/min/1.73 m(2)) 1 Kidney damage with normal or decreased GFR 90 2 Kidney damage with mild decrease in GFR 60-89 3 Moderate decrease in GFR 30-59 4 Severe decrease in GFR 15-29 5 Kidney failure <15 (or dialysis) 2 Specimen Hemolyzed. Result may not be valid. Unable to report test result due to hemolysis. CORRECTED REPORT --- Corrected on 07/18/19 1333 --- Potassium previously reported as: Test not performed mmol/L Specimen Hemolyzed. Result may not be valid. Unable to report test result due to hemolysis. 3 RESULT: No apparent monoclonal protein on serum electrophoresis. Test Performed by: [facility] [address] [place] [address] 4 REFERENCE VALUE 0.3300-1.94 5 REFERENCE VALUE 0.5700-2.63 6 REFERENCE VALUE 0.2600-1.65 Test Performed by: [facility] [address] [place] [address] 7 Because ethnic data is not always readily available, this report includes an eGFR for both -Americans and non- Americans. The National Kidney Disease Education Program (NKDEP) does not endorse the use of the MDRD equation for patients that are not between the ages of 18 and 70, are , have extremes of body size, muscle mass, or nutritional status, or are non- or non-. According to the National Kidney Foundation, irrespective of diagnosis, the stage of the disease is based on the level of kidney function: Stage Description GFR(mL/min/1.73 m(2)) 1 Kidney damage with normal or decreased GFR 90 2 Kidney damage with mild decrease in GFR 60-89 3 Moderate decrease in GFR 30-59 4 Severe decrease in GFR 15-29 5 Kidney failure <15 (or dialysis) Procedures Date Code Description Status 03/26/2019 75221 Inj/Aspir Major JT Or Bursa W/ US Completed 03/21/2018 [id number] Bone Mineral Density Test Completed Medical Devices Description No Information Available Encounters Type Date Location Provider Dx Diagnosis Office Visit 08/08/2019 [facility] Katlyn Morton MD M19.012 Primary 1:30p at [place] osteoarthritis, left shoulder M19.112 Post-traumatic osteoarthritis, left shoulder S82.62xA Disp fx of lateral malleolus of left fibula, init Office Visit 07/19/2019 11:00a [facility] Nephrology Yamil Jordan N17.9 Acute kidney MD [place] failure, unspecified N18.4 Chronic kidney disease, stage 4 (severe) E66.01 Morbid (severe) obesity due to excess calories I95.9 Hypotension, unspecified Office Visit 07/10/2019 1:30p [facility] Nephrology Yamil Jordan N18.4 Chronic kidney MD Danilo disease, stage 4 (severe) R39.11 Hesitancy of micturition N17.9 Acute kidney failure, unspecified Office Visit 07/09/2019 [facility] M19.012 Primary 1:15p Orthopedics at [facility] [place] osteoarthritis, left [place] shoulder M19.112 Post-traumatic osteoarthritis, left shoulder Office Visit 05/07/2019 [facility] M19.012 Primary 1:15p Orthopedics at [place] osteoarthritis, left [place] shoulder M19.112 Post-traumatic osteoarthritis, left shoulder Office Visit 03/26/2019 [facility] M19.012 Primary 10:45a Orthopedics at [place] osteoarthritis, left [place] shoulder M19.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, right shoulder E66.01 Morbid (severe) obesity due to excess calories Office Visit 03/10/2019 [facility] Tiny Jeong J45.901 Unspecified asthma 8:19a Assoc,pc N.P. with (acute) Hospitalists exacerbation N17.9 Acute kidney failure, unspecified N18.9 Chronic kidney disease, unspecified I95.9 Hypotension, unspecified R55 Syncope and collapse Office Visit 03/09/2019 8:18a [facility] Oleg Herring45.909 Unspecified asthma, M.D. uncomplicated Office Visit 03/08/2019 8:18a [facility] Oleg Herring45.909 Unspecified asthma, M.D. uncomplicated N18.9 Chronic kidney disease, unspecified R03.1 Nonspecific low blood-pressure reading R06.02 Shortness of breath Assessments Date Code Description Provider 09/02/2019 S82.65xK Nondisplaced fracture of lateral malleolus Bartolome Fischer MD of left fibula, subsequent encounter for closed fracture with nonunion 08/27/2019 S82.62xB Displaced fracture of lateral malleolus of Katlyn Morton MD left fibula, initial encounter for open fracture type I or II 08/27/2019 M19.112 Post-traumatic osteoarthritis, left Katlyn Morton MD shoulder 08/27/2019 M19.012 Primary osteoarthritis, left shoulder Katlyn Morton MD 08/08/2019 M19.012 Primary osteoarthritis, left shoulder Katlyn Morton MD 08/08/2019 M19.112 Post-traumatic osteoarthritis, left Katlyn Morton MD shoulder 08/08/2019 S82.62xA Displaced fracture of lateral malleolus of Katlyn Morton MD left fibula, initial encounter for closed fracture 07/19/2019 N17.9 Acute kidney failure, unspecified Yamil Carrasco MD 07/19/2019 N18.4 Chronic kidney disease, stage 4 (severe) Yamil Carrasco MD 07/19/2019 E66.01 Morbid (severe) obesity due to excess Yamil Carrasco MD calories 07/19/2019 I95.9 Hypotension, unspecified Yamil Carrasco MD 07/10/2019 N18.4 Chronic kidney disease, stage 4 (severe) Yamil Carrasco MD 07/10/2019 R39.11 Hesitancy of micturition Yamil Carrasco MD 07/10/2019 N17.9 Acute kidney failure, unspecified Yamil Carrasco MD 07/09/2019 M19.012 Primary osteoarthritis, left shoulder Katlyn Morton MD 07/09/2019 M19.112 Post-traumatic osteoarthritis, left Katlyn Morton MD shoulder 05/07/2019 M19.012 Primary osteoarthritis, left shoulder Katlyn Morton MD 05/07/2019 M19.112 Post-traumatic osteoarthritis, left Katlyn Morton MD shoulder 03/26/2019 M19.012 Primary osteoarthritis, left shoulder Katlyn Morton MD 03/26/2019 M19.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, right Ktalyn Morton MD shoulder 03/26/2019 E66.01 Morbid (severe) obesity due to excess Katlyn Morton MD calories 03/10/2019 J45.901 Unspecified asthma with (acute) Tiny Jeong, N.P. exacerbation 03/10/2019 N17.9 Acute kidney failure, unspecified Tiny Jeong, N.P. 03/10/2019 N18.9 Chronic kidney disease, unspecified Tiny Jeong, N.P. 03/10/2019 I95.9 Hypotension, unspecified Tiny Jeong N.P. 03/10/2019 R55 Syncope and collapse Tiny Jeong N.P. 03/09/2019 J45.909 Unspecified asthma, uncomplicated Fede Watson M.D. 03/08/2019 J45.909 Unspecified asthma, uncomplicated Fede Watson M.D. 03/08/2019 N18.9 Chronic kidney disease, unspecified Fede Watson M.D. 03/08/2019 R03.1 Nonspecific low blood-pressure reading Fede Watson M.D. 03/08/2019 R06.02 Shortness of breath Fede Watsno M.D. Plan of Treatment Future Appointment(s):09/27/2019 11:30 am - Bartolome Fischer MD at [facility] at Bmrtag2609/12/2019 9:30 am - Bartolome Fischer MD at [facility] at Avltfw0310/08/2019 10:45 am - Katlyn Morton MD at [facility] at Zrntgr4409/11/2019 10:00 am - Yamil Carrasco MD at [facility] Ffdkiqvnzy28/14/2019 - Bartolome Fischer, MDS82.65xK Nondisplaced fracture of lateral malleolus of left fibula, subsequent encounter for closed fracture with nonunionFollow up:Follow Up: 13-15 days postop Functional Status Description No Information Available Mental Status Description No Information Available Referrals Refer to Dr Reason for Referral Status Appt Date [facility] morbid obesity nutrition consult for Sent 2018 preop shoulder weight loss [address] [place] [address] [phone]
--- OUTSIDE RECORDS SUMMARY | 2019-09-12 10:09 | XMS REPORT | Continuity of Care Document ---
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 Onset: 07/31/2015 Abnormal gait Sarah Shaw M.D. Onset: 07/31/2015 H/O: depression Betty Mendieta M.D. Onset: 02/24/2016 Sprain of shoulder and upper arm Katlyn Morton MD Onset: 03/13/2018 Closed fracture of glenoid cavity AND/OR neck Katlyn Morton MD Onset: 2017 of scapula Localized, primary osteoarthritis of the Katlyn Morton MD Onset: 03/13/2018 shoulder region Rotator cuff tear arthropathy Katlyn Morton MD Onset: 03/26/2019 Social History Type Date Description Comments Sex Unknown Smokeless Tobacco Never Used Smokeless Tobacco ETOH Use Rarely consumes alcohol Tobacco Use Start: Unknown Patient has never smoked Recreational Drug Use Negative For Denies Drug Use Tobacco Use Start: Unknown Patient has never smoked Tobacco Use Start: Unknown Is exposed to second hand smoke at home. Smoking Status Reviewed: 07/19/19 Is exposed to second hand smoke at [...] a day Cartia XT Take One Unknown 120mg Caps ER 24HR Capsule By Mouth Every Day Medications Administered in Office Medication SIG Qnty Indications Ordering Provider Date Triamcinolone (Kenalog) Katlyn Morton MD 03/26/2019 Injection Triamcinolone (Kenalog) Katlyn Morton MD 12/27/2018 Injection Hyalagan Or Supartz, For Katlyn Morton MD 09/25/2018 Intra-Articular Inject Per Dose Injection Hyalagan Or Supartz, For Katlyn Morton MD 09/18/2018 Intra-Articular Inject Per Dose Injection Hyalagan Or Supartz, For Katlyn Morton MD 09/11/2018 Intra-Articular Inject Per Dose Injection Hyalagan Or Supartz, For Katlyn Morton MD 09/04/2018 Intra-Articular Inject Per Dose Injection Hyalagan Or Ángel, For Katlyn Morton MD 08/28/2018 Intra-Articular Inject Per Dose Injection Triamcinolone (Kenalog) Katlyn Morton MD 06/29/2018 Injection Depomedrol 80MG Sarah Shaw M.D. 02/05/2014 Injection PPD Nelia Zarate, 01/18/2013 Injection N.P. PPD Nelia Zarate, 02/02/2012 Injection N.P. Immunizations Description No Information Available Vital Signs Date Vital Result Comment 07/19/2019 10:57am Height 60 inches 5'0" Weight 260.00 lb pt has boot on L foot Heart Rate 102 /min BP Systolic Sitting 122 mmHg R arm BP Diastolic Sitting 81 mmHg R arm O2 % BldC Oximetry 94 % BMI (Body Mass Index) 50.8 kg/m2 07/10/2019 1:16pm Height 60 inches 5'0" Heart Rate 106 /min BP Systolic Sitting 124 mmHg manual R arm BP Diastolic Sitting 74 mmHg manual R arm O2 % BldC Oximetry 97 % Results Test Date Facility Test Result H/L Range Note Xray 07/19/2019 [facility] US Renal <pending> [address] [place] [address] [phone] Basic Metabolic 07/18/2019 [facility] Sodium 138 mmol/L Normal 135-145 Panel [address] [place] [address] [phone] Chloride 102 mmol/L Normal 101-111 Co2 Carbon Dioxide 32 mmol/L Normal 22-32 Glucose 90 mg/dL Normal 70-100 Blood Urea Nitrogen 17 mg/dL Normal 6-24 Creatinine 1.27 mg/dL High 0.51-0.95 BUN/Creatinine Ratio 13.4 Normal 8-20 Calcium 9.5 mg/dL Normal 8.6-10.3 Egfr Non- 42.6 >60 Egfr 51.6 >60 1 Potassium 4.4 mmol/L Normal 3.5-5.0 2 Anion Gap 4 mmol/L Normal 2-11 Urinalysis Profile 07/18/2019 [facility] Urine Color Yellow [address] [place] [address] [phone] Urine Appearance Clear Urine Specific [place] 1.019 Normal 1.010-1.030 Urine pH 5.0 Normal 5-9 Urine Urobilinogen Negative Negative Urine Ketones Negative Negative Urine Protein Negative Negative Urine Leukocytes Negative Negative Urine Blood Negative Negative Urine Nitrite Negative Negative Urine Bilirubin Negative Negative Urine Glucose Negative Negative CBC Auto 07/18/2019 [facility] White Blood 5.9 10^3/uL Normal 3.5-10.[address] [place] [address] [phone] Red Blood Count 4.34 10^6/uL Normal 3.70-4.87 [...] Blood Cells % 0.1 Laboratory test 07/18/2019 [facility] Total Protein 21 mg/dL finding [address] [place] [address] [phone] Creatinine Random Urine 149.52 mg/dL Protein 07/18/2019 [facility] Total 7.3 g/dL 6.3 - Electrophoresis [address] Protein(Pep) 7.9 [place] [address] [phone] Albumin 3.4 g/dL 3.4-4.7 Alpha-1 Globulin 0.3 g/dL 0.1-0.3 Alpha-2 Globulin 1.0 g/dL 0.6-1.0 Beta Globulin 1.2 g/dL 0.7-1.2 Gamma Globulin 1.4 g/dL 0.6-1.6 Albumin/Globulin Ratio 0.89 Impression See Comment 3 [place]/Lambda Free 07/18/2019 [facility] [place] Free 3.67 mg/dL Abnormal 4 Light Chains Ser [address] [place] [address] [phone] Lambda Free Light Chain 2.63 mg/dL 5 [place]/Lambda Free Light Chain 1.40 6 CBC Auto 07/10/2019 [facility] White Blood 8.1 10^3/uL Normal 3.5-10.[address] [place] [address] [phone] Red Blood Count 4.31 10^6/uL Normal 3.70-4.87 [...] Blood Cells % 0.0 Basic Metabolic 07/10/2019 [facility] Sodium 139 mmol/L Normal 135-[address] [place] [address] [phone] Potassium 4.2 mmol/L Normal 3.5-5.0 Chloride 99 mmol/L Low 101-111 Co2 Carbon Dioxide 31 mmol/L Normal 22-32 Anion Gap 9 mmol/L Normal 2-11 Glucose 94 mg/dL Normal 70-100 Blood Urea Nitrogen 30 mg/dL High 6-24 Creatinine 3.08 mg/dL High 0.51-0.95 BUN/Creatinine Ratio 9.7 Normal 8-20 Calcium 9.5 mg/dL Normal 8.6-10.3 Egfr Non- 15.3 >60 Egfr 18.6 >60 7 Xray 07/10/2019 [facility] US Renal Complete <pending> [address] [place] [address] [phone] 1 Because ethnic data is not always [...] protein on serum electrophoresis. Test Performed by: [facility] [address] [place] [address] 4 REFERENCE VALUE 0.3300-1.94 5 REFERENCE VALUE 0.5700-2.63 6 REFERENCE VALUE 0.2600-1.65 Test Performed by: [facility] [address] [place] [address] 7 Because ethnic data is not always [...] dialysis) Procedures Date Code Description Status 03/26/2019 87158 Inj/Aspir Major JT Or Bursa W/ US Completed 03/21/2018 320753119 Bone Mineral Density Test Completed Medical Devices Description No Information Available Encounters Type Date Location Provider Dx Diagnosis Office Visit 07/19/2019 [facility] Nephrology Yamil Jordan N17.9 Acute kidney 11:00a MD Danilo failure, unspecified N18.4 Chronic kidney disease, stage 4 (severe) E66.01 Morbid (severe) obesity due to excess calories I95.9 Hypotension, unspecified Office Visit 07/10/2019 1:30p Social Services Assistant Nephrology Yamil Jordan N18.4 Chronic kidney MD Danilo disease, stage 4 (severe) R39.11 Hesitancy of micturition N17.9 Acute kidney failure, unspecified Office Visit 07/09/2019 Orthopedic Katlyn Morton, M19.012 Primary 1:15p Services Of osteoarthritis, left C.M.A. shoulder M19.112 Post-traumatic osteoarthritis, left shoulder Office Visit 05/07/2019 Orthopedic Katlyn Morton, M19.012 Primary 1:15p Services Of osteoarthritis, left C.M.A. 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 shoulder M19.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, right shoulder E66.01 Morbid (severe) obesity due to excess calories Office Visit 03/10/2019 [facility] Jean-Paul, J45.901 Unspecified asthma 8:19a Assoc,pc N.P. with (acute) Hospitalists exacerbation N17.9 Acute kidney failure, unspecified N18.9 Chronic kidney disease, unspecified I95.9 Hypotension, unspecified R55 Syncope and collapse Office Visit 03/09/2019 8:18a Intensivists Fede Watson J45.909 Unspecified asthma, M.D. uncomplicated Office Visit 03/08/2019 8:18a [employer] Fede Watson J45.909 Unspecified asthma, M.D. uncomplicated N18.9 Chronic kidney disease, unspecified R03.1 Nonspecific low blood-pressure reading R06.02 Shortness of breath Assessments Date Code Description Provider 07/19/2019 N17.9 Acute kidney failure, unspecified Yamil [...] Morton MD 07/09/2019 M19.112 Post-traumatic osteoarthritis, left shoulder Katlyn Morton MD 05/07/2019 M19.012 Primary osteoarthritis, left shoulder Katlyn Morton MD 05/07/2019 M19.112 Post-traumatic osteoarthritis, left shoulder Katlyn Morton MD 03/26/2019 M19.012 Primary osteoarthritis, left shoulder Katlyn Morton MD 03/26/2019 M19.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, right Katlyn Morton MD shoulder 03/26/2019 E66.01 Morbid (severe) obesity due to excess Katlyn Morton MD calories 03/10/2019 J45.901 Unspecified asthma with (acute) exacerbation Tiny Jeong, N.P. 03/10/2019 N17.9 Acute kidney failure, unspecified Tiny Jeong, N.P. 03/10/2019 N18.9 Chronic kidney disease, unspecified Tiny Jeong, N.P. 03/10/2019 I95.9 Hypotension, unspecified Tiny Jeong, N.P. 03/10/2019 R55 Syncope and collapse Tiny Jeong, N.P. 03/09/2019 J45.909 Unspecified asthma, uncomplicated Fede Watson M.D. 03/08/2019 J45.909 Unspecified asthma, uncomplicated Fede Watson M.D. 03/08/2019 N18.9 Chronic kidney disease, unspecified Fede Watson M.D. 03/08/2019 R03.1 Nonspecific low blood-pressure reading Fede Watson M.D. 03/08/2019 R06.02 Shortness of breath Fede Watson M.D. Plan of Treatment Future Appointment(s):09/11/2019 10:00 am - Yamil Carrasco MD at [facility] Awmwvebxwz45/02/2019 7:30 am - Katlyn Morton MD at [facility].08/08/2019 1:30 pm - Katlyn Morton MD at [facility]. - Yamil Carrasco MDN18.4 Chronic kidney disease, stage 4 (severe) R39.11 Hesitancy of exnbyqdpouwJ96.9 Acute kidney failure, unspecifiedComments: Recurrent AKIsCr (5.5)(02/2019)sCr (3.0)(07/10/2019). OLGA etiology Unclear? No OLGA Risk factors. No NSAIDsNo UANot cleared for for Lt Shoulder surgery, in AKIRenal USSPEP, Free Light ChainsFU in 1 week Avoid NSAIDsLow Salt dietPlenty water for HydrationNot cleared for Left Shoulder Surgery Functional Status Description No Information Available Mental Status Description No Information Available Referrals Refer to Reason for Referral Status Appt Date [facility] morbid obesity nutrition consult for Sent 2018 preop shoulder weight loss [address] [place] [address] [phone]
--- OUTSIDE RECORDS SUMMARY | 2019-09-12 10:09 | XMS REPORT | Continuity of Care Document ---
:1955 External Reference #:[id number] Author Name Yamil Carrasco MD (transmitted by agent of provider Candelaria Ybarra) Address [address] [place] [address] Care Team Providers Name Role Phone Juan R Mak MD - Physical Care Team Information Dye Can Operator Medicine & Rehabilitation Shaan Lainez MD - Family Medicine Care Team Information Dye Can Operator Problems Active Problems Provider Date Arthralgia of [...] hand smoke at home. Smoking Status Reviewed: 09/06/19 Is exposed to second hand smoke at home. Exercise Type/Frequency Does not exercise Exercise Type/Frequency Does not exercise Allergies, Adverse Reactions, Alerts Active Allergies Reaction Severity Comments Date Ibuprofen Abdominal pain, Facial swelling 02/05/2014 Medications Active Medications SIG Qnty Indications Ordering Date Provider Amoxicillin take 4 tabs by 4caps Sarah Colin, 10/06/2016 500mg Capsules mouth 1 hour M.D. [...] Available Vital Signs Date Vital Result Comment 09/06/2019 10:54am Height 60 inches 5'0" Weight 263.00 lb Heart Rate 113 /min BP Systolic Sitting 147 mmHg L arm BP Diastolic Sitting 91 mmHg L arm O2 % BldC Oximetry 98 % BMI (Body Mass Index) 51.4 kg/m2 09/02/2019 11:00am Height 60 inches 5'0" Weight 258.00 lb Heart Rate 108 /min BP Systolic 120 mmHg BP Diastolic 88 mmHg Respiratory Rate 18 /min Pain Level 5 BMI (Body Mass Index) 50.4 kg/m2 Results Test Date Facility Test Result H/L Range Note Neph Routine 09/05/2019 [facility] Total Protein 37 mg/dL [address] [place] [address] [phone] Creatinine Random Urine 149.38 mg/dL CBC Auto 09/05/2019 [facility] White Blood 6.3 10^3/uL Normal 3.5-10.[address] [place] [address] [phone] Red Blood Count 4.17 10^6/uL Normal 3.70-4.87 Hemoglobin 12.3 g/dL Normal 12.0-16.0 Hematocrit 37 % Normal 35-47 Mean Corpuscular Volume 89 fL Normal 80-97 Mean Corpuscular Hemoglobin 30 pg Normal 27-31 Mean Corpuscular HGB Conc 33 g/dL Normal 31-36 Red Cell Distribution Width 16 % High 10-15 Platelet Count 341 10^3/uL Normal 150-450 Mean Platelet Volume 8.5 fL Normal 7.4-10.4 Abs Neutrophils 2.6 10^3/uL Normal 1.5-7.7 Abs Lymphocytes 2.7 10^3/uL Normal 1.0-4.8 Abs Monocytes 0.6 10^3/uL Normal 0-0.8 Abs Eosinophils 0.4 10^3/uL Normal 0-0.6 Abs Basophils 0.1 10^3/uL Normal 0-0.2 Abs Nucleated RBC 0.0 10^3/uL Granulocyte % 41.7 % Lymphocyte % 42.6 % Monocyte % 9.3 % Eosinophil % 5.6 % Basophil % 0.8 % Nucleated Red Blood Cells % 0.1 Basic Metabolic 09/05/2019 [facility] Sodium 140 mmol/L Normal 135-[address] [place] [address] [phone] Potassium 4.5 mmol/L Normal 3.5-5.0 Chloride 105 mmol/L Normal 101-111 Co2 Carbon Dioxide 31 mmol/L Normal 22-32 Anion Gap 4 mmol/L Normal 2-11 Glucose 98 mg/dL Normal 70-100 Blood Urea Nitrogen 20 mg/dL Normal 6-24 Creatinine 1.17 mg/dL High 0.51-0.95 BUN/Creatinine Ratio 17.1 Normal 8-20 Calcium 9.5 mg/dL Normal 8.6-10.3 Egfr Non- 46.9 >60 Egfr 56.7 >60 1 Urinalysis Profile 09/05/2019 [facility] Urine Color Yellow [address] [place] [address] [phone] Urine Appearance Clear Urine Specific [place] 1.023 Normal 1.010-1.030 Urine pH 5.0 Normal 5-9 Urine Urobilinogen Negative Negative Urine Ketones Negative Negative Urine Protein Negative Negative Urine Leukocytes Negative Negative Urine Blood Negative Negative Urine Nitrite Negative Negative Urine Bilirubin Negative Negative Urine Glucose Negative Negative Xray 07/19/2019 [facility] US Renal <pending> [address] [place] [address] [phone] [place]/Lambda 07/18/2019 [facility] [place] Free 3.67 mg/dL Abnormal 2 Free Light [address] [place] [address] [phone] Lambda Free Light Chain 2.63 mg/dL 3 [place]/Lambda Free Light Chain 1.40 4 Protein 07/18/2019 [facility] Total 7.3 g/dL 6.3 - Electrophoresis [address] Protein(Pep) 7.9 [place] [address] [phone] Albumin 3.4 g/dL 3.4-4.7 Alpha-1 Globulin 0.3 g/dL 0.1-0.3 Alpha-2 Globulin 1.0 g/dL 0.6-1.0 Beta Globulin 1.2 g/dL 0.7-1.2 Gamma Globulin 1.4 g/dL 0.6-1.6 Albumin/Globulin Ratio 0.89 Impression See Comment 5 Laboratory test 07/18/2019 [facility] Total Protein 21 mg/dL finding [address] [place] [address] [phone] Creatinine Random Urine 149.52 mg/dL CBC Auto 07/18/2019 [facility] White Blood 5.9 10^3/uL Normal 3.5-10.[address] [place] [address] [phone] Red Blood Count 4.34 10^6/uL Normal 3.70-4.87 [...] % Nucleated Red Blood Cells % 0.1 Urinalysis Profile 07/18/2019 [facility] Urine Color Yellow [address] [place] [address] [phone] Urine Appearance Clear Urine Specific [place] 1.019 Normal 1.010-1.030 Urine pH 5.0 Normal 5-9 Urine Urobilinogen Negative Negative Urine Ketones Negative Negative Urine Protein Negative Negative Urine Leukocytes Negative Negative Urine Blood Negative Negative Urine Nitrite Negative Negative Urine Bilirubin Negative Negative Urine Glucose Negative Negative Basic Metabolic 07/18/2019 [facility] Sodium 138 mmol/L Normal 135-[address] [place] [address] [phone] Chloride 102 mmol/L Normal 101-111 Co2 Carbon Dioxide 32 mmol/L Normal 22-32 Glucose 90 mg/dL Normal 70-100 Blood Urea Nitrogen 17 mg/dL Normal 6-24 Creatinine 1.27 mg/dL High 0.51-0.95 BUN/Creatinine Ratio 13.4 Normal 8-20 Calcium 9.5 mg/dL Normal 8.6-10.3 Egfr Non- 42.6 >60 Egfr 51.6 >60 6 Potassium 4.4 mmol/L Normal 3.5-5.0 7 Anion Gap 4 mmol/L Normal 2-11 CBC Auto 07/10/2019 [facility] White Blood 8.1 10^3/uL Normal 3.5-10.[address] [place] [address] [phone] Red Blood Count 4.31 10^6/uL Normal 3.70-4.87 [...] Blood Cells % 0.0 Basic Metabolic 07/10/2019 [facility] Sodium 139 mmol/L Normal 135-145 Panel [address] [place] [address] [phone] Potassium 4.2 mmol/L Normal 3.5-5.0 Chloride 99 mmol/L Low 101-111 Co2 Carbon Dioxide 31 mmol/L Normal 22-32 Anion Gap 9 mmol/L Normal 2-11 Glucose 94 mg/dL Normal 70-100 Blood Urea Nitrogen 30 mg/dL High 6-24 Creatinine 3.08 mg/dL High 0.51-0.95 BUN/Creatinine Ratio 9.7 Normal 8-20 Calcium 9.5 mg/dL Normal 8.6-10.3 Egfr Non- 15.3 >60 Egfr 18.6 >60 8 Xray 07/10/2019 [facility] US Renal Complete <pending> [address] [place] [address] [phone] 1 Because ethnic data is not always [...] 5 Kidney failure <15 (or dialysis) 2 REFERENCE VALUE 0.3300-1.94 3 REFERENCE VALUE 0.5700-2.63 4 REFERENCE VALUE 0.2600-1.65 Test Performed by: [facility] [place] [address] [place] [address] 5 RESULT: No apparent monoclonal protein on serum electrophoresis. Test Performed by: [facility] [employer] [facility] [place] [address] 6 Because ethnic data is not always readily [...] 15-29 5 Kidney failure <15 (or dialysis) 7 Specimen Hemolyzed. Result may not be valid. Unable to report test result due to hemolysis. CORRECTED REPORT --- Corrected on 07/18/19 1333 --- Potassium previously reported as: Test not performed mmol/L Specimen Hemolyzed. Result may not be valid. Unable to report test result due to hemolysis. 8 Because ethnic data is not always readily [...] dialysis) Procedures Date Code Description Status 03/26/2019 89392 Inj/Aspir Major JT Or Bursa W/ US Completed 03/21/2018 [id number] Bone Mineral Density Test Completed Medical Devices Description No Information Available Encounters Type Date Location Provider Dx Diagnosis Office Visit 08/08/2019 [facility] Katlyn Morton MD M19.012 Primary 1:30p at [place] osteoarthritis, left shoulder M19.112 Post-traumatic osteoarthritis, left shoulder S82.62xA Disp fx of lateral malleolus of left fibula, init Office Visit 07/19/2019 11:00a [facility] Nephrology Yamil Jordan N17.9 Acute kidney MD Danilo failure, unspecified N18.4 Chronic kidney disease, stage 4 (severe) E66.01 Morbid (severe) obesity due to excess calories I95.9 Hypotension, unspecified Office Visit 07/10/2019 1:30p [facility] Yamil Jordan N18.4 Chronic kidney MD Danilo disease, stage 4 (severe) R39.11 Hesitancy of micturition N17.9 Acute kidney failure, unspecified Office Visit 07/09/2019 [facility] M19.012 Primary 1:15p Orthopedics clotilde Morton MD osteoarthritis, left [place] shoulder M19.112 Post-traumatic osteoarthritis, left shoulder Office Visit 05/07/2019 [facility] M19.012 Primary 1:15p Orthopedics clotilde Morton MD osteoarthritis, left [place] shoulder M19.112 Post-traumatic osteoarthritis, left shoulder Office Visit 03/26/2019 [facility] M19.012 Primary 10:45a Orthopedics cloitlde Morton MD osteoarthritis, left [place] shoulder M19.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, right shoulder E66.01 Morbid (severe) obesity due to excess calories [facility] J[facility].901 Unspecified asthma 8:19a Assoc,pc N.P. with [...] of breath Assessments Date Code Description Provider 09/06/2019 N18.3 Chronic kidney disease, stage 3 (moderate) Yamil Carrasco MD 09/06/2019 I10 Essential (primary) hypertension Yamil Carrasco MD 09/06/2019 I12.9 Hypertensive chronic kidney disease with Yamil Carrasco MD stage 1 through stage 4 chronic kidney disease, or unspecified chronic kidney disease 09/02/2019 S82.65xK Nondisplaced fracture of lateral malleolus [...] N.P. 03/10/2019 R55 Syncope and collapse Tiny Jeogn, N.P. 03/09/2019 J45.909 Unspecified asthma, uncomplicated Fede Watson M.D. 03/08/2019 J45.909 Unspecified asthma, uncomplicated Fede Watson M.D. 03/08/2019 N18.9 Chronic kidney disease, unspecified Fede Watson M.D. 03/08/2019 R03.1 Nonspecific low blood-pressure reading Fede Watson M.D. 03/08/2019 R06.02 Shortness of breath Fede Watson M.D. Plan of Treatment Future Appointment(s):11/06/2019 11:00 am - Yamil Carrasco MD at [facility] Hjljrdrimy07/08/2019 11:30 am - Bartolome Fischer MD at [facility] at Rpsibk4409/12/2019 9:30 am - Bartolome Fischer MD at [facility] at [id number] 10:45 am - Katlyn Morton MD at [facility] at Bxrtxc9309/02/2019 - Bartolome Fischer, MDS82.65xK Nondisplaced fracture of lateral malleolus of left fibula, subsequent encounter for closed fracture with nonunionFollow up:Follow Up: 13-15 days postop Functional Status Description No Information Available Mental Status Description No Information Available Referrals Refer to Reason for Referral Status Appt [facility] [place] morbid obesity nutrition consult for Sent 2018 preop shoulder weight loss [address] [place] [address] [phone]
--- OUTSIDE RECORDS SUMMARY | 2019-09-12 10:09 | XMS REPORT | Summary of Care ---
:1955 Author Organization [facility] Address [address] [facility] [place] [address] Care Team Providers Name Role Phone Shaan Lainez Primary Care Provider Juan R Mak MD Unavailable Jaquelin Larsen Genetic Counsellor Unavailable Reason for Visit Reason Comments Pre-Op Exam L ankle, procedure is scheduled for 09/12/2019, very weak Wheezing Started Monday09/02/2019, L ear is stuffy Encounter Details Date Type Department Care Team Description 09/06/2019 Office Visit [facility], Preop cardiovascular Practice MD exam (Primary Dx) [address] [place] [address] [place], [place] [id number] Allergies Active Allergy Reactions Severity Noted Date Comments Amoxicillin-Pot Clavulanate GI Reaction High 03/30/2015 Diarrhea, Ibuprofen Swelling 11/18/2014 Aspartame-Ibuprofen 02/01/2013 Latex Rash 11/18/2014 documented as of this encounter (statuses as of 09/06/2019) Medications Medication Sig Dispensed Refills Start Date End Date Status Flaxseed-Radha Take by mouth. 0 Active Prim-Borage (FLAX OIL XTRA) Oral Cap OXYcodone-acetaminophen Take 1.5 Tabs by 0 Active (PERCOCET) 5-325 MG mouth EVERY SIX Oral Tab HOURS NEEDED (MDD 6 tabs). guaifenesin (MUCINEX) Take 1 Tab by 60 Tab 0 12/28/2016 Active 600 MG Oral TABLET SR mouth TWICE 12 HRIndications: Mild DAILY. intermittent asthma with acute exacerbation loratadine-pseudoephedr Take 1 Tab by 28 Tab 0 03/30/2018 Active ine (CLARITIN-D 12 mouth DAILY. HOUR) 5-120 MG Oral TABLET SR 12 HR Cholecalciferol Take 1 Cap by 30 Cap 5 05/16/2018 Active (VITAMIN D) 2000 units mouth DAILY. Oral Cap Pediatric Take 1 Each by 30 Tab 5 05/16/2018 Active Hkdzecpb-Ojesnqax-R mouth DAILY. (VITACHEW MULTIPLE Caramel flavor VITAMIN) Oral Chew Tab Multiple Take 1 Tab by 30 Tab 5 05/16/2018 Active Vitamins-Minerals mouth DAILY. (MULTIVITAMIN WOMEN 50+) Oral Tab Lidocaine 4 % Apply 2 g by Apply 1 Bottle 0 06/04/2018 Active externally Gel externally route TWICE DAILY. Olopatadine 0.1 % INSTILL 2 DROPS 5 mL 4 09/26/2018 Active Ophthalmic Solution INTO BOTH EYES TWO TIMES A DAY gabapentin (NEURONTIN) Take 800 mg by 0 Active 400 MG Oral Cap mouth FOUR TIMES DAILY. albuterol HFA INHALE 2 PUFFS 8.5 g 4 06/03/2019 Active (VENTOLIN) 108 (90 INTO LUNGS EVERY Base) MCG/ACT 4 HOURS NEEDED Inhalation Aero Soln FOR SHORTNESS OF BREATH ADVAIR DISKUS 500-50 INHALE ONE PUFF 1 Each 3 06/04/2019 Active MCG/DOSE Inhalation BY MOUTH TWICE A AEROSOL POWDER, BREATH DAY ACTIVATED Omeprazole delayed rel TAKE ONE CAPSULE 60 Cap 5 06/10/2019 Active cap 20 MG Oral CAPSULE BY MOUTH TWICE A DELAYED RELEASE DAY buPROPion XL TAKE ONE TABLET 30 Tab 2 06/24/2019 Active (WELLBUTRIN XL) 150 MG BY MOUTH EVERY Oral TABLET SR 24 HR 24 DAY hour tablet clindamycin (CLEOCIN) Take 4 Caps by 16 Cap 0 06/25/2019 Active 150 MG Oral Cap mouth DIRECTED. 1 hour prior to dentist fluticasone (FLONASE) SPRAY TWO SPRAYS 16 g 5 07/15/2019 Active 50 MCG/ACT Nasal IN EACH NOSTRIL Suspension EVERY DAY diltiazem CD (CARDIZEM Take 1 Cap by 30 Cap 1 07/31/2019 Active CD) 180 MG Oral CAPSULE mouth DAILY. SR 24 HR loratadine Take 1 Tab by 30 Tab 5 07/31/2019 Active (CLARITIN,ALAVERT) 10 mouth DAILY. MG Oral Tab zolpidem (AMBIEN) 10 MG Take 1 Tab by 30 Tab 2 08/19/2019 Active Oral Tab mouth EVERY BEDTIME NEEDED (insomnia). Max Daily Amount: 10 mg. ALPRAZolam (XANAX) 0.5 Take 1 Tab by 90 Tab 0 08/19/2019 Active MG Oral Tab mouth THREE TIMES DAILY NEEDED (anxiety). Max Daily Amount: 1.5 mg. clobetasol (TEMOVATE) 1 Appl by Topical 15 g 0 08/20/2019 Active 0.05 % Apply externally route DAILY Cream NEEDED (genital itch). cyclobenzaprine Take 1 Tab by 60 Tab 2 08/27/2019 Active (FLEXERIL) 10 MG Oral mouth TWO TIMES Tab DAILY NEEDED (muscle spasm). duloxetine (CYMBALTA) TAKE ONE CAPSULE 30 Cap 2 09/02/2019 Active 60 MG Oral CAPSULE BY MOUTH EVERY ENTERIC COATED DAY PARTICLES Calcium 600-200 MG-UNIT Take 600 Tabs by 0 06/18/2014 Active Oral Tab mouth DAILY. Flaxseed-Radha Take 1,200 mg by 0 06/18/2014 Active Prim-Borage (FLAX OIL mouth DAILY. XTRA) Oral Cap Gabapentin 800 MG Oral Take 800 mg by 0 06/18/2014 Active Tab mouth THREE TIMES DAILY. diclofenac (VOLTAREN) 1 4 g by Topical 0 Active % Transdermal Gel route DAILY. diltiazem (CARDIZEM CD) Take 180 mg by 1 08/29/2019 Active 180 MG Oral CAPSULE SR mouth DAILY. 24 HR HYDROcodone-acetaminoph Take 1 Tab by 0 06/18/2014 Active en (NORCO) 10-325 MG mouth EVERY FOUR Oral Tab HOURS NEEDED. polyethylene glycol Take 1 g by mouth 3 08/27/2019 Active (MIRALAX) Oral Powder DAILY. documented as of this encounter (statuses as of 09/06/2019) Active Problems Problem Noted Date Class 3 severe obesity due to excess calories with serious comorbidity and body mass index (BMI) of 45.0 to 49.9 in adult Asthma 02/05/2013 HTN (hypertension) 02/05/2013 CKD (chronic kidney disease) Overview: Dr Napoles Depression with anxiety documented as of this encounter (statuses as of 09/06/2019) Resolved Problems Problem Noted Date Resolved Date Obesity 07/31/2019 Overview: This patient's BMI This patient's BMI has been calculated and is above average, and BMI management plan is completed. General patient education discussion including: weight loss link to reduction of r isk factors for cardiac and other diseases, importance of long-term maintenance treatment in weight loss, and accomplish with exercise as tolerated and diet control documented as of this encounter (statuses as of 09/06/2019) Immunizations Name Administration Dates Next Due Influenza (IM) Preservative Free 08/20/2019, 09/06/2018, 07/28/2017 Influenza (IM) W/Pres 11/07/2016 PNEUMOCOCCAL POLYSACCHARIDE VACCINE 11/07/2016 documented as of this encounter Social History Tobacco Use Types Packs/Day Years Used Date Passive Smoke Exposure - Never Smoker 0 Smokeless Tobacco: Never Used Alcohol Use Drinks/Week oz/Week Comments No 0 Standard drinks or equivalent 0.0 Sex Assigned at Date Recorded Not on file Job Start Date Occupation Industry Not on file Not on file Not on file Travel History Travel Start Travel End No recent travel history available. documented as of this encounter Last Filed Vital Signs Vital Sign Reading Time Taken Comments Blood Pressure 139/84 09/06/2019 1:09 PM EDT Pulse 90 09/06/2019 1:09 PM EDT Temperature 37.6 09/06/2019 1:09 PM C (99.7 EDT F) Respiratory Rate - - Oxygen Saturation 92% 09/06/2019 1:09 PM EDT Inhaled Oxygen Concentration - - Weight 118.9 kg (262 lb 3.2 oz) 09/06/2019 1:09 PM EDT Height 154.9 cm (5' 1") 09/06/2019 1:09 PM EDT Body Mass Index 49.54 09/06/2019 1:09 PM EDT documented in this encounter Progress Notes Domingo Parekh MD - 09/06/2019 1:00 PM EDT PATIENT: Doris Watson : 1955 DATE OF SERVICE: 09/06/2019 CHIEF COMPLAINT: Chief Complaint Patient presents with Pre-Op Exam L ankle, procedure is scheduled for 09/12/2019, very weak Wheezing Started Monday09/02/2019, L ear is stuffy Subjective HISTORY OF PRESENT ILLNESS: Doris Watson is a 64-y.o. female. 64 y/o previously cleared for shoulder surgery on 07-31-[address] Lainez-- orthopedics now going to perform an ankle surgery with hip graft on 12 SEP 2019. Here for new medical clearance. Previous note byDr. Lainez with cardiac risk index is unchanged per the patient--answers the same. Pt notes she has had some increased wheezing the last couple of days with the weather changes. Otherwise, is in the usual state of compensated health. Past Medical History: Diagnosis Date Anemia Arthritis knee Dr Shaw and Mopurgo s/p bilateral replacement Asthma Chicken pox CKD (chronic kidney disease) Dr Napoles Depression with anxiety GERD (gastroesophageal reflux disease) Glenoid fracture of shoulder 2018 left HTN (hypertension) 02/05/2013 Insomnia Knee pain, chronic Obesity Seasonal allergies Family History Problem Relation Age of Onset Diabetes Sister Diabetes Brother Arthritis Sister Heart Mother Hypertension Mother Stroke Father Respiratory Father Cancer Father lung Hypertension Father Current Outpatient Medications Medication Sig ADVAIR DISKUS 500-50 MCG/DOSE Inhalation AEROSOL POWDER, BREATH ACTIVATED INHALE ONE PUFF BY MOUTH TWICE A DAY albuterol HFA (VENTOLIN) 108 (90 Base) MCG/ACT Inhalation Aero Soln INHALE 2 PUFFS INTO LUNGSEVERY 4 HOURS NEEDED FOR SHORTNESS OF BREATH ALPRAZolam (XANAX) 0.5 MG Oral Tab Take 1 Tab by mouth THREE TIMES DAILY NEEDED (anxiety).Max Daily Amount: 1.5 mg. buPROPion XL (WELLBUTRIN XL) 150 MG Oral TABLET SR 24 HR 24 hour tablet TAKE ONE TABLET BY MOUTH EVERY DAY Calcium 600-200 MG-UNIT Oral Tab Take 600 Tabs by mouth DAILY. Cholecalciferol (VITAMIN D) 2000 units Oral Cap Take 1 Cap by mouth DAILY. clindamycin (CLEOCIN) 150 MG Oral Cap Take 4 Caps by mouth DIRECTED. 1 hour prior to dentist clobetasol (TEMOVATE) 0.05 % Apply externally Cream 1 Appl by Topical route DAILY NEEDED (genital itch). cyclobenzaprine (FLEXERIL) 10 MG Oral Tab Take 1 Tab by mouth TWO TIMES DAILY NEEDED (muscle spasm). diclofenac (VOLTAREN) 1 % Transdermal Gel 4 g by Topical route DAILY. diltiazem (CARDIZEM CD) 180 MG Oral CAPSULE SR 24 HR Take 180 mg by mouth DAILY. diltiazem CD (CARDIZEM CD) 180 MG Oral CAPSULE SR 24 HR Take 1 Cap by mouth DAILY. duloxetine (CYMBALTA) 60 MG Oral CAPSULE ENTERIC COATED PARTICLES TAKE ONE CAPSULE BY MOUTH EVERY DAY Flaxseed-Radha Prim-Borage (FLAX OIL XTRA) Oral Cap Take by mouth. Flaxseed-Radha Prim-Borage (FLAX OIL XTRA) Oral Cap Take 1,200 mg by mouth DAILY. fluticasone (FLONASE) 50 MCG/ACT Nasal Suspension SPRAY TWO SPRAYS IN EACH NOSTRIL EVERY DAY gabapentin (NEURONTIN) 400 MG Oral Cap Take 800 mg by mouth FOUR TIMES DAILY. Gabapentin 800 MG Oral Tab Take 800 mg by mouth THREE TIMES DAILY. guaifenesin (MUCINEX) 600 MG Oral TABLET SR 12 HR Take 1 Tab by mouth TWICE DAILY. HYDROcodone-acetaminophen (NORCO) 10-325 MG Oral Tab Take 1 Tab by mouth EVERY FOUR HOURS ASNEEDED. Lidocaine 4 % Apply externally Gel 2 g by Apply externally route TWICE DAILY. loratadine (CLARITIN,ALAVERT) 10 MG Oral Tab Take 1 Tab by mouth DAILY. loratadine-pseudoephedrine (CLARITIN-D 12 HOUR) 5-120 MG Oral TABLET SR 12 HR Take 1 Tab by mouth DAILY. Multiple Vitamins-Minerals (MULTIVITAMIN WOMEN 50+) Oral Tab Take 1 Tab by mouth DAILY. Olopatadine 0.1 % Ophthalmic Solution INSTILL 2 DROPS INTO BOTH EYES TWO TIMES A DAY Omeprazole delayed rel cap 20 MG Oral CAPSULE DELAYED RELEASE TAKE ONE CAPSULE BY MOUTH TWICEA DAY OXYcodone-acetaminophen (PERCOCET) 5-325 MG Oral Tab Take 1.5 Tabs by mouth EVERY SIX HOURS NEEDED (MDD 6 tabs). Pediatric Rwdaazwk-Bjkxrflz-Q (VITACHEW MULTIPLE VITAMIN) Oral Chew Tab Take 1 Each by mouth DAILY. Caramel flavor polyethylene glycol (MIRALAX) Oral Powder Take 1 g by mouth DAILY. zolpidem (AMBIEN) 10 MG Oral Tab Take 1 Tab by mouth EVERY BEDTIME NEEDED (insomnia). Max Daily Amount: 10 mg. No current facility-administered medications for this visit. Allergies Allergen Reactions Amoxicillin-Pot Clavulanate GI Reaction Diarrhea, Ibuprofen Swelling Ibuprofen [Aspartame-Ibuprofen] Latex Rash Social History Socioeconomic History Marital status: Single Spouse name: Not on file Number of children: Not on file Years of education: Not on file Highest education level: Not on file Occupational History Not on file Social Needs Financial resource strain: Not on file Food insecurity: Worry: Not on file Inability: Not on file Transportation needs: Medical: Not on file Non-medical: Not on file Tobacco Use Smoking status: Passive Smoke Exposure - Never Smoker Smokeless tobacco: Never Used Substance and Sexual Activity Alcohol use: No Alcohol/week: 0.0 standard drinks Drug use: No Sexual activity: Not Currently Lifestyle Physical activity: Days per week: Not on file Minutes per session: Not on file Stress: Not on file Relationships Social connections: Talks on phone: Not on file Gets together: Not on file Attends confucianist service: Not on file Active member of club or organization: Not on file Attends meetings of clubs or organizations: Not on file Relationship status: Not on file Intimate partner violence: Fear of current or ex partner: Not on file Emotionally abused: Not on file Physically abused: Not on file Forced sexual activity: Not on file Other Topics Concern Back Care Not Asked Bike Helmet Not Asked Blood Transfusions Not Asked Caffeine Concern Not Asked Exercise Not Asked Hobby Hazards Not Asked International Travel Not Asked Service Not Asked Occupational Exposure Not Asked Seat Belt Not Asked Self-Exams Not Asked Sleep Concern Not Asked Special Diet Not Asked Stress Concern Not Asked Weight Concern Not Asked Social History Narrative Not on file REVIEW OF SYSTEMS: Review of Systems Constitutional: Negative for chills, fever, malaise/fatigue and weight loss. HENT: Negative for congestion, hearing loss, nosebleeds, sore throat and tinnitus. Eyes: Negative for blurred vision and double vision. Respiratory: Positive for shortness of breath and wheezing. Negative for cough and hemoptysis. Cardiovascular: Negative for chest pain, palpitations, orthopnea and leg swelling. Gastrointestinal: Negative for constipation, diarrhea, heartburn, nausea and vomiting. Genitourinary: Negative for dysuria and urgency. Musculoskeletal: Positive for falls (4 months ago) and joint pain. Skin: Negative for itching and rash. Neurological: Negative for dizziness, sensory change, speech change and headaches. Psychiatric/Behavioral: Positive for depression (under control and stable on meds). Negative for hallucinations, memory loss, substance abuse and suicidal ideas. Objective PHYSICAL EXAM: VITALS: BP 139/84 (BP Location: Right arm, Patient Position: Sitting) | Pulse 90 | Temp 99.7 F (37.6 C) (Tympanic) | Ht 5' 1" (1.549 m) | Wt 262 lb 3.2 oz (118.9 kg) | SpO2 92% | BMI 49.54 kg/m Body mass index is 49.54 kg/m. Physical Exam Vitals signs and nursing note reviewed. Constitutional: General: She is not in acute distress. Appearance: Normal appearance. She is normal weight. She is not ill-appearing , toxic-appearing ordiaphoretic. HENT: Head: Normocephalic and atraumatic. Right Ear: Tympanic membrane normal. There is impacted cerumen. Left Ear: Tympanic membrane normal. There is impacted cerumen. Nose: Nose normal. No congestion or rhinorrhea. Mouth/Throat: Mouth: Mucous membranes are moist. Pharynx: Oropharynx is clear. No oropharyngeal exudate or posterior oropharyngeal erythema. Eyes: General: Right eye: No discharge. Left eye: No discharge. Conjunctiva/sclera: Conjunctivae normal. Pupils: Pupils are equal, round, and reactive to light. Neck: Musculoskeletal: Normal range of motion and neck supple. No neck rigidity or muscular tenderness. Vascular: No carotid bruit. Cardiovascular: Rate and Rhythm: Normal rate and regular rhythm. Pulses: Normal pulses. Heart sounds: Normal heart sounds. No murmur. No friction rub. No gallop. Pulmonary: Effort: Pulmonary effort is normal. Breath sounds: Normal breath sounds. No wheezing, rhonchi or rales. Abdominal: General: Abdomen is flat. Bowel sounds are normal. There is no distension. Palpations: Abdomen is soft. Tenderness: There is no tenderness. Hernia: No hernia is present. Lymphadenopathy: Cervical: No cervical adenopathy. Neurological: General: No focal deficit present. Mental Status: She is alert and oriented to person, place, and time. ASSESSMENT / IMPRESSION: 1. Preop cardiovascular exam Cleared for surgery. No change in medication. Follow up with Dr. Lainez as necessary for routine health maintenance and medication concerns. Plan As above. Author: Domingo Parekh MD 09/06/2019 13:38 documented in this encounter Plan of Treatment Health Maintenance Due Date Last Done Comments PAP SMEAR 1955 ZOSTER IMMUNIZATION SERIES 2007 (1 of 2) PNEUMOCOCCAL 0-64 YRS (2 of 11/07/2017 11/07/2016 3 - PCV13) MEDICARE ANNUAL WELLNESS 07/28/2018 07/28/2017 VISIT LIPID DISORDER SCREENING 09/06/2019 09/06/2018, 05/25/2016 DEPRESSION SCREENING 03/18/2020 03/18/2019, 07/28/2017 DIABETES SCREENING 05/09/2020 05/09/2019, 03/21/2019, 09/06/2018, Additional history exists MAMMOGRAM (SCREENING) 05/21/2020 05/21/2019, 09/21/2017, 05/26/2016, Additional history exists COLONOSCOPY SCREENING 04/04/2022 04/04/2012, 03/20/2008 (Previously completed) INFLUENZA VACCINE Completed 08/20/2019, 09/06/2018, 07/28/2017, Additional history exists HPV IMMUNIZATION SERIES Aged Out No longer eligible based on patient's age to complete this topic MENINGOCOCCAL VACCINE IMM Aged Out No longer eligible based on patient's age to complete this topic documented as of this encounter Goals Goal Patient Goal Associated Recent Patient-Stated? Author Type Problems Progress Blood Pressure Blood Pressure HTN 139/84 No Migel, < 140/90 (hypertension) (09/06/2019 MD Shaan 1:09 PM EDT) Note: Hypertension Care Plan Based on the patient's clinical history and according to JNC 8 guidelines target blood pressure goal is less than 140/90. Based on the patient's last blood pressure of BP: 146/88 mmHg the patient is at above goal. As your provider, it is important that I advise you regarding: your current medications and help you with any challenges you may face taking your medications as directed (ex. instructions, cost, side effects, and interactions). lifestyle changes: exercise, weight reduction and diet your clinical goals and how you can achieve success: weight reduction, exercise plan and diet improvements medication management: adjusted medications as appropriate the availability of a care specialist to help you with your Hypertension patient education/self-management tools provided: Current self-management tools adequate To successfully manage my Hypertension I will: monitor my blood pressure daily, understanding that my goal is less than 140/ 90 per my healthcare provider's recommendation. I will schedule an appointment with my provider if consistent abnormal readings greater than 160/100. take medications every day as prescribed by my healthcare provider and if unable to take them I will discuss with my provider. monitor for symptoms of chest pain, chest tightness/pressure, irregular heartbeat, persistent dizziness, radiating arm pain, and neck or jaw pain. If any of these symptoms are noticed I will seek medical attention immediately by calling 911 exercise/walk 15 minutes 4 day(s) per week. If I experience chest pain, chest tightness, or shortness of breath, I will seek medical attention immediately. follow a diet rich in fruits, vegetables, and low-fat dairy products with reduced content of saturated & total fat. I will reduce my sodium intake daily. An example is the DASH diet. To obtain more information please refer to the DASH Eating Plan listed in Educational Resources. record my blood pressure results. [employer] is safe and secure way for you to do this in your medical record online. try to obtain an ideal body weight. My recent weight was Weight: 196 lb 6.4 oz (89.086 kg). My weight loss goal for my next office visit is 190 correction goal 175. limit alcohol consumption. For men two drinks per day and women one drink per day. if currently smoking, will discuss how to quit smoking with my healthcare provider and work towards quitting. Educational Resources: National Heart, Lung, & Blood Stigler http://nhlbi.nih.gov/hbp/index.html The DASH Diet Eating Plan http://www.nhlbi.nih.gov/health/health-topics/ topics/dash/ Academy of Nutrition & DIetetics http://eatright.org National Smoking Cessation Site http://smokefree.gov Blood Pressure < Blood Pressure HTN (hypertension) 139/84 (09/06/2019 No Shaan Lainez, 140/90 1:09 PM EDT) Note: Hypertension Care Plan Based on the patient's clinical history and according to JNC 8 guidelines target blood pressure goal is less than 140/90. Based on the patient's last blood pressure of BP: 100/60 mmHg the patient is at at goal. As your provider, it is important that I advise you regarding: your current medications and help you with any challenges you may face taking your medications as directed (ex. instructions, cost, side effects, and interactions). lifestyle changes: exercise, weight reduction, diet and dietary sodium reduction your clinical goals and how you can achieve success: weight reduction, exercise plan and diet improvements medication management: adjusted medications as appropriate patient education/self-management tools provided: no To successfully manage my Hypertension I will: monitor my blood pressure daily, understanding that my goal is less than 140/ 90 per my healthcare provider's recommendation. I will schedule an appointment with my provider if consistent abnormal readings greater than 160/100. take medications every day as prescribed by my healthcare provider and if unable to take them I will discuss with my provider. monitor for symptoms of chest pain, chest tightness/pressure, irregular heartbeat, persistent dizziness, radiating arm pain, and neck or jaw pain. If any of these symptoms are noticed I will seek medical attention immediately by calling 911 exercise/walk 15 minutes 2 day(s) per week. If I experience chest pain, chest tightness, or shortness of breath, I will seek medical attention immediately. follow a diet rich in fruits, vegetables, and low-fat dairy products with reduced content of saturated & total fat. I will reduce my sodium intake daily. An example is the DASH diet. To obtain more information please refer to the DASH Eating Plan listed in Educational Resources. record my blood pressure results. [employer] is safe and secure way for you to do this in your medical record online. try to obtain an ideal body weight. My recent weight was Weight: 199 lb 3.2 oz (90.357 kg). My weight loss goal for my next office visit is 190. limit alcohol consumption. For men two drinks per day and women one drink per day. if currently smoking, will discuss how to quit smoking with my healthcare provider and work towards quitting. Educational Resources: National Heart, Lung, & Blood Stigler http://nhlbi.nih.gov/hbp/index.html The DASH Diet Eating Plan http://www.nhlbi.nih.gov/health/health-topics/ topics/dash/ Academy of Nutrition & DIetetics http://eatright.org National Smoking Cessation Site http://smokefree.gov Blood Pressure < Blood Pressure HTN (hypertension) 139/84 (09/06/2019 No Shaan Lainez, 140/90 1:09 PM EDT) Note: Hypertension Care Plan Based on the patient's clinical history and according to JNC 8 guidelines target blood pressure goal is less than 140/90. Based on the patient's last blood pressure of BP: 118/74 mmHg the patient is at at goal. As your provider, it is important that I advise you regarding: your current medications and help you with any challenges you may face taking your medications as directed (ex. instructions, cost, side effects, and interactions). Important lifestyle changes: exercise and weight reduction your clinical goals and how you can achieve success: weight reduction and exercise plan medication management: adjusted medications as appropriate patient education/self-management tools provided: Current self-management tools adequate To successfully manage my Hypertension I will: monitor my blood pressure daily, understanding that my goal is less than 140/ 90 per my healthcare provider's recommendation. I will schedule an appointment with my provider if consistent abnormal readings greater than 160/100. take medications every day as prescribed by my healthcare provider and if unable to take them I will discuss with my provider. monitor for symptoms of chest pain, chest tightness/pressure, irregular heartbeat, persistent dizziness, radiating arm pain, and neck or jaw pain. If any of these symptoms are noticed I will seek medical attention immediately by calling 911 exercise/walk 30 minutes 5 day(s) per week. If I experience chest pain, chest tightness, or shortness of breath, I will seek medical attention immediately. follow a diet rich in fruits, vegetables, and low-fat dairy products with reduced content of saturated & total fat. I will reduce my sodium intake daily. An example is the DASH diet. To obtain more information please refer to the DASH Eating Plan listed in Educational Resources. record my blood pressure results. Tashi is safe and secure way for you to do this in your medical record online. try to obtain an ideal body weight. My recent weight was Weight: 204 lb 6.4 oz (92.715 kg). My weight loss goal for my next office visit is 200. limit alcohol consumption. For men two drinks per day and women one drink per day. if currently smoking, will discuss how to quit smoking with my healthcare provider and work towards quitting. Educational Resources: National Heart, Lung, & Blood Stigler http://nhlbi.nih.gov/hbp/index.html The DASH Diet Eating Plan http://www.nhlbi.nih.gov/health/health-topics/ topics/dash/ Academy of Nutrition & DIetetics http://eatright.org National Smoking Cessation Site http://smokefree.gov Blood Pressure < 140/90 Blood Pressure 139/84 (09/06/2019 1:09 No Shaan Lainez MD PM EDT) Note: This is an individualized treatment (blood pressure) goal for Doris Watson: Displayed above (on the left) is your goal for blood pressure control. Your most recent blood pressure is also shown above, on the right. You should try to achieve blood pressures that are lower than your goal listed above (on the left). Depression screen (PHQ-9) Depression 10 (07/28/2017 2:29 PM No Shaan Lainez MD total score < 5 EDT) Note: This is an individualized treatment (depression) goal for Doris Watson: Displayed above is your goal for a depression screening (PHQ-9) score that would indicate good control of your depression. Keep a regular sleep schedule Lifestyle No Shaan Lainez MD Note: This is an individualized lifestyle goal for Drois Watson: Please maintain a regular sleep schedule. This may help with some symptoms of depression. Unit - lb < 170 Result Component No Shaan Lainez MD Note: BMI < 30 Take all prescribed medications as directed Self-management No Shaan Lainez MD Note: This is an individualized self-management goal for Doris Watson: Please take all prescribed medications as directed. 1. Do not skip doses. If you cannot afford your medications, talk with your doctor. 2. Use a pill reminder system such as a pill box if needed. Your pharmacist can help you with this. 3. Contact your Pharmacy 5 days before your medication runs out. If you cannot take your medications for any reasons, talk with your doctor. 4. Please bring all of your medication bottles and inhalers (or a list of all your medications/inhalers) with you to every visit. Potential barriers to meeting all of your care plan goals will continue to be addressed on an ongoing basis. documented as of this encounter Results Not on filedocumented in this encounter Visit Diagnoses Diagnosis Preop cardiovascular exam - Primary Pre-operative cardiovascular examination documented in this encounter Insurance Payer Benefit Plan / Subscriber ID Effective Dates Phone Address Type Group [place] xxxxxxxx 2018-Present [place] MED[place] MEDICARE PART A xxxxxxxxxxx 2016-Present Medicare & B Guarantor Name Account Type Relation to Date of Phone Billing Patient Address Doris Watson Luis Carlos Personal/Family 1955 [address] (Home) [address] [place], [place] ([place]) [phone] documented as of this encounter
--- OUTSIDE RECORDS SUMMARY | 2019-09-12 10:09 | XMS REPORT | Continuity of Care Document ---
:1955 External Reference #:[id number] Author Name Katlyn Morton MD (transmitted by agent of provider Nancy Avelar) Address [address], [place] [address] Care Team Providers Name Role Phone Juan R Mak MD - Physical Care Team Information [facility] Division Chair Medicine & Rehabilitation Shaan Lainez MD - Family Medicine Care Team Information Humanities Division Chair [phone] Problems Active Problems Provider Date Arthralgia of [...] encounter for closed fracture with routine healing Social History Type Date Description Comments Sex Unknown Smokeless Tobacco Never Used Smokeless Tobacco ETOH Use Rarely consumes alcohol Tobacco Use Start: Unknown Patient has never smoked Recreational Drug Use Negative For Denies Drug Use Tobacco Use Start: Unknown Patient has never smoked Tobacco Use Start: Unknown Is exposed to second hand smoke at home. Smoking Status Reviewed: 08/27/19 Is exposed to second hand smoke at home. Exercise Type/Frequency Does not exercise Exercise Type/Frequency Does not exercise Allergies, Adverse Reactions, Alerts Active Allergies Reaction Severity Comments Date Ibuprofen Abdominal pain, Facial swelling 02/05/2014 Medications Active Medications SIG Qnty Indications Ordering Date Provider Amoxicillin take 4 tabs by 4cbessie Shaw, 10/06/2016 500mg Capsules mouth 1 hour [...] Available Vital Signs Date Vital Result Comment 08/27/2019 11:32am Height 60 inches 5'0" Weight 258.00 lb Heart Rate 92 /min BP Systolic 148 mmHg BP Diastolic 110 mmHg Pain Level 8 BMI (Body Mass Index) 50.4 kg/m2 08/08/2019 1:24pm Height 60 inches 5'0" Weight 256.00 lb Heart Rate 120 /min BP Systolic 132 mmHg BP Diastolic 88 mmHg Body Temperature 99.9 F Pain Level 2 BMI (Body Mass Index) 50.0 kg/m2 Results Test Date Facility Test Result H/L Range Note Xray 07/19/2019 [facility] US Renal <pending> [address] [place] [address] [phone] Basic Metabolic 07/18/2019 [facility] Sodium 138 mmol/L Normal 135-145 Panel [address] [place] [address] [phone] Chloride 102 mmol/L Normal 101-111 Co2 Carbon Dioxide 32 mmol/L Normal 22-32 Glucose 90 mg/dL Normal 70-100 Blood Urea Nitrogen 17 mg/dL Normal 6-24 Creatinine 1.27 mg/dL High 0.51-0.95 BUN/Creatinine Ratio 13.4 Normal 8-20 Calcium 9.5 mg/dL Normal 8.6-10.3 Egfr Non- 42.6 >60 Egfr 51.6 >60 1 Potassium 4.4 mmol/L Normal 3.5-5.0 2 Anion Gap 4 mmol/L Normal 2-11 Urinalysis Profile 07/18/2019 [facility] Urine Color Yellow [address] [place] [address] [phone] Urine Appearance Clear Urine Specific Gray 1.019 Normal 1.010-1.030 Urine pH 5.0 Normal 5-9 Urine Urobilinogen Negative Negative Urine Ketones Negative Negative Urine Protein Negative Negative Urine Leukocytes Negative Negative Urine Blood Negative Negative Urine Nitrite Negative Negative Urine Bilirubin Negative Negative Urine Glucose Negative Negative CBC Auto 07/18/2019 [facility] White Blood 5.9 10^3/uL Normal 3.5-10.[address] [place] [address] [phone] Red Blood Count 4.34 10^6/uL Normal 3.70-4.87 [...] Blood Cells % 0.1 Laboratory test 07/18/2019 [facility] Total Protein 21 mg/dL finding [address] [place] [address] [phone] Creatinine Random Urine 149.52 mg/dL Protein 07/18/2019 [facility] Total 7.3 g/dL 6.3 - Electrophoresis [address] Protein(Pep) 7.9 [place] [address] [phone] Albumin 3.4 g/dL 3.4-4.7 Alpha-1 Globulin 0.3 g/dL 0.1-0.3 Alpha-2 Globulin 1.0 g/dL 0.6-1.0 Beta Globulin 1.2 g/dL 0.7-1.2 Gamma Globulin 1.4 g/dL 0.6-1.6 Albumin/Globulin Ratio 0.89 Impression See Comment 3 Readlyn/Lambda Free 07/18/2019 [facility] Readlyn Free 3.67 mg/dL Abnormal 4 Light Chains Ser [address] [place] [address] [phone] Lambda Free Light Chain 2.63 mg/dL 5 Readlyn/Lambda Free Light Chain 1.40 6 CBC Auto 07/10/2019 [facility] White Blood 8.1 10^3/uL Normal 3.5-10.[address] [place] [address] [phone] Red Blood Count 4.31 10^6/uL Normal 3.70-4.87 [...] Blood Cells % 0.0 Basic Metabolic 07/10/2019 [facility] Sodium 139 mmol/L Normal 135-[address] [place] [address] [phone] Potassium 4.2 mmol/L Normal 3.5-5.0 Chloride 99 mmol/L Low 101-111 Co2 Carbon Dioxide 31 mmol/L Normal 22-32 Anion Gap 9 mmol/L Normal 2-11 Glucose 94 mg/dL Normal 70-100 Blood Urea Nitrogen 30 mg/dL High 6-24 Creatinine 3.08 mg/dL High 0.51-0.95 BUN/Creatinine Ratio 9.7 Normal 8-20 Calcium 9.5 mg/dL Normal 8.6-10.3 Egfr Non- 15.3 >60 Egfr 18.6 >60 7 Xray 07/10/2019 [facility] Renal Complete <pending> [address] [place] [address] [phone] 1 Because ethnic data is not always [...] on serum electrophoresis. Test Performed by: [facility] [address] [place] [address] 4 REFERENCE VALUE 0.3300-1.94 5 REFERENCE VALUE 0.5700-2.63 6 REFERENCE VALUE 0.2600-1.65 Test Performed by: [facility] [address] [place] [address] 7 Because ethnic data is not always [...] dialysis) Procedures Date Code Description Status 03/26/2019 79703 Inj/Aspir Major JT Or Bursa W/ US Completed 03/21/2018 [id number] Bone Mineral Density Test Completed Medical Devices Description No Information Available Encounters Type Date Location Provider Dx Diagnosis Office Visit 08/08/2019 [facility] Katlyn Morton MD M19.012 Primary 1:30p at [place] osteoarthritis, left shoulder M19.112 Post-traumatic osteoarthritis, left shoulder S82.62xA Disp fx of lateral malleolus of left fibula, init Office Visit 07/19/2019 11:00a [facility] Yamil Jordan N17.9 Acute kidney MD Danilo failure, unspecified N18.4 Chronic kidney disease, stage 4 (severe) E66.01 Morbid (severe) obesity due to excess calories I95.9 Hypotension, unspecified Office Visit 07/10/2019 1:30p [facility] Nephdorothy Jordan N18.4 Chronic kidney MD Danilo disease, stage 4 (severe) R39.11 Hesitancy of micturition N17.9 Acute kidney failure, unspecified [place] [facility] M19.012 Primary 1:15p [facility] at [facility] osteoarthritis, left [place] shoulder M19.112 Post-traumatic osteoarthritis, left shoulder Office Visit 05/07/2019 [facility] M19.012 Primary 1:15p [facility]oped[facility] at [facility] osteoarthritis, left [place] shoulder M19.112 Post-traumatic osteoarthritis, left shoulder Office Visit 03/26/2019 [facility] M19.012 Primary 10:45a Orthopedics at [facility] osteoarthritis, left [place] shoulder M19.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, right shoulder E66.01 Morbid (severe) obesity due to excess calories Office Visit 03/10/2019 [facility] Tiny Jeong J45.901 Unspecified asthma 8:19a Assoc,pc [...] of breath Assessments Date Code Description Provider 08/27/2019 S82.62xB Displaced fracture of lateral malleolus [...] Yamil Carrasco MD calories 07/19/2019 I95.9 Hypotension, yonathanified Yamil Carrasco MD 07/10/2019 N18.4 Chronic kidney disease, stage 4 (severe) Yamil Carrasco MD 07/10/2019 R39.11 Hesitancy of micturition Yamil Carrasco MD 07/10/2019 N17.9 Acute kidney failure, yonathanified Yamil Carrasco MD 07/09/2019 M19.012 Primary osteoarthritis, [...] Fede Watson M.D. Plan of Treatment Future Appointment(s):10/08/2019 10:45 am - Katlyn Morton MD at [facility] at Cotlvr8909/24/2019 1:30 pm - Katlyn Morton MD at [facility] at Amwpbx5709/11/2019 10:00 am - Yamil Carrasco MD at [facility] Qbkxwlsvbu30/13/2019 9:15 am - Katlyn Morton MD at [facility] at Pulxoh6808/27/2019 - Katlyn Morton, MDS82.62xB Displaced fracture of lateral malleolus of left fibula, initial encounter for open fracturetype I or IINew Xrays:CT Extremity Lower Left Wo, Scheduled: 08/28/19Follow up:Follow up: after CT with Aaliyah 6 weeks with [facility] for hredrglsZ79.112 Post-traumatic osteoarthritis, left qnymutepM71.012 Primary osteoarthritis, left shoulder Functional Status Description No Information Available Mental Status Description No Information Available Referrals Refer to Reason for Referral Status Appt Date [facility] morbid obesity nutrition consult for Sent 2018 preop shoulder weight loss [address] [place] [address] [phone]
--- OUTSIDE RECORDS SUMMARY | 2019-09-12 10:09 | XMS REPORT | Continuity of Care Document ---
:1955 External Reference #:[id number] Author Name Katlyn Morton MD (transmitted by agent of provider Gianna Marley) Address [address], [place] [address] Care Team Providers Name Role Phone Juan R Mak MD - Physical Care Team Information [employer] [phone] Medicine & Rehabilitation Shaan Lainez MD - Family Medicine Care Team Information [employer] [phone] Problems Active Problems Provider Date Arthralgia of [...] hand smoke at home. Smoking Status Reviewed: 08/08/19 Is exposed to second hand smoke at [...] Available Vital Signs Date Vital Result Comment 08/08/2019 1:24pm Height 60 inches 5'0" Weight 256.00 lb Heart Rate 120 /min BP Systolic 132 mmHg BP Diastolic 88 mmHg Body Temperature 99.9 F Pain Level 2 BMI (Body Mass Index) 50.0 kg/m2 07/19/2019 10:57am Height 60 inches 5'0" Weight 260.00 lb pt has boot on L foot Heart Rate 102 /min BP Systolic Sitting 122 mmHg R arm BP Diastolic Sitting 81 mmHg R arm O2 % BldC Oximetry 94 % BMI (Body Mass Index) 50.8 kg/m2 Results Test Date Facility Test Result H/L Range Note Xray 07/19/2019 [facility] US Renal <pending> [address] [place] [address] [phone] Basic Metabolic 07/18/2019 [facility] Sodium 138 mmol/L Normal 135-[address] [place] [address] [phone] Chloride 102 mmol/L Normal 101-111 Co2 Carbon Dioxide 32 mmol/L Normal 22-32 Glucose 90 mg/dL Normal 70-100 Blood Urea Nitrogen 17 mg/dL Normal 6-24 Creatinine 1.27 mg/dL High 0.51-0.95 BUN/Creatinine Ratio 13.4 Normal 8-20 Calcium 9.5 mg/dL Normal 8.6-10.3 Egfr Non- 42.6 >60 Egfr 51.6 >60 1 Potassium 4.4 mmol/L Normal 3.5-5.0 2 Anion Gap 4 mmol/L Normal 2-11 Urinalysis Profile 07/18/2019 [facility] Urine Color Yellow [address] [place] [address] [phone] Urine Appearance Clear Urine Specific [place] 1.019 Normal 1.010-1.030 Urine pH 5.0 Normal 5-9 Urine Urobilinogen Negative Negative Urine Ketones Negative Negative Urine Protein Negative Negative Urine Leukocytes Negative Negative Urine Blood Negative Negative Urine Nitrite Negative Negative Urine Bilirubin Negative Negative Urine Glucose Negative Negative CBC Auto 07/18/2019 [facility] White Blood 5.9 10^3/uL Normal 3.5-10.[address] [place] [address] [phone] Red Blood Count 4.34 10^6/uL Normal 3.70-4.87 [...] Blood Cells % 0.1 Laboratory test 07/18/2019 [facility] Total Protein 21 mg/dL finding [address] [place] [address] [phone] Creatinine Random Urine 149.52 mg/dL Protein 07/18/2019 [facility] Total 7.3 g/dL 6.3 - Electrophoresis [address] Protein(Pep) 7.9 [place] [address] [phone] Albumin 3.4 g/dL 3.4-4.7 Alpha-1 Globulin 0.3 g/dL 0.1-0.3 Alpha-2 Globulin 1.0 g/dL 0.6-1.0 Beta Globulin 1.2 g/dL 0.7-1.2 Gamma Globulin 1.4 g/dL 0.6-1.6 Albumin/Globulin Ratio 0.89 Impression See Comment 3 Medicine Bow/Lambda Free 07/18/2019 [facility] Medicine Bow Free 3.67 mg/dL Abnormal 4 Light Chains Ser [address] [place] [address] [phone] Lambda Free Light Chain 2.63 mg/dL 5 Medicine [place]/Lambda Free Light Chain 1.40 6 CBC Auto 07/10/2019 [facility] White Blood 8.1 10^3/uL Normal 3.5-10.[address] [place] [address] [phone] Red Blood Count 4.31 10^6/uL Normal 3.70-4.87 [...] Blood Cells % 0.0 Basic Metabolic 07/10/2019 [facility] Sodium 139 mmol/L Normal 135-[address] [place] [address] [phone] Potassium 4.2 mmol/L Normal 3.5-5.0 Chloride 99 mmol/L Low 101-111 Co2 Carbon Dioxide 31 mmol/L Normal 22-32 Anion Gap 9 mmol/L Normal 2-11 Glucose 94 mg/dL Normal 70-100 Blood Urea Nitrogen 30 mg/dL High 6-24 Creatinine 3.08 mg/dL High 0.51-0.95 BUN/Creatinine Ratio 9.7 Normal 8-20 Calcium 9.5 mg/dL Normal 8.6-10.3 Egfr Non- 15.3 >60 Egfr 18.6 >60 7 Xray 07/10/2019 [facility] US Renal Complete <pending> [address] [place] [address] [phone] 1 Because ethnic data is not always [...] protein on serum electrophoresis. Test Performed by: [facility] [address] [place] [address] 4 REFERENCE VALUE 0.3300-1.94 5 REFERENCE VALUE 0.5700-2.63 6 REFERENCE VALUE 0.2600-1.65 Test Performed by: [facility] [address] [place] [address] 7 Because ethnic data is not always [...] dialysis) Procedures Date Code Description Status 03/26/2019 12720 Inj/Aspir Major JT Or Bursa W/ US Completed 03/21/2018 [id number] Bone Mineral Density Test Completed Medical Devices Description No Information Available Encounters Type Date Location Provider Dx Diagnosis Office Visit 07/19/2019 [facility] Yamil Jordan N17.9 Acute kidney 11:00a [...] due to excess calories [facility] J45.901 Unspecified asthma 8:19a Assoc,pc N.P. [...] of breath Assessments Date Code Description Provider 08/08/2019 S82.492D Other fracture of shaft of left fibula, Katlyn Morton MD subsequent encounter for closed fracture with routine healing 08/08/2019 M19.012 Primary osteoarthritis, left shoulder Katlyn Morton MD 08/08/2019 M19.112 Post-traumatic osteoarthritis, left Katlyn Morton MD shoulder 07/19/2019 N17.9 Acute kidney failure, unspecified Yamil [...] MD 07/09/2019 M19.012 Primary osteoarthritis, left shoulder aKtlyn Morton MD 07/09/2019 M19.112 Post-traumatic osteoarthritis, left [...] Fede Watson M.D. Plan of Treatment Future Appointment(s):08/27/2019 11:15 am - [facility]/11/[facility] 10:00 am - Yamil Carrasco MD at [facility] Hslpiikrth76/02/2019 7:30 am - Katlyn Morton MD at [facility].08/08/2019 - Katlyn Morton, MDS82.492D Other fracture of shaft of left fibula, subsequent encounter for closed fracture with routine healingNew Labs: Vitamin D Total 25(Oh), Ordered: 08/08/19Follow up:Follow up: 2-3 qgqgoJ68.012 Primary osteoarthritis, left gpgkqguyK58.112 Post-traumatic osteoarthritis, left shoulder Functional Status Description No Information Available Mental Status Description No Information Available Referrals Refer to Dr Reason for Referral Status Appt Date [place] [facility] [employer] [facility] morbid obesity nutrition consult for Sent 2018 preop shoulder weight loss [address] [place] [address] [phone]
--- OUTSIDE RECORDS SUMMARY | 2019-09-12 10:09 | XMS REPORT | Summary of Care ---
:1955 Author Organization [facility] Address [address] [facility] [place] [address] Care Team Providers Name Role Phone Shaan Lainez Primary Care Provider Juan R Mak MD Unavailable Jaquelin Larsen Brine Process Operator Unavailable Reason for Visit Reason Comments Follow Up pt presents for follow up Encounter Details Date Type Department Care Team Description 08/20/2019 Office Visit [facility] Shaan Lainez MD Pain in joint of left shoulder (Primary Dx); Practice [address] [facility] Essential hypertension; [address] [facility] [place] [address] Class 3 severe obesity due to excess calories with serious comorbidity and body mass index (BMI) of 45.0 to 49.9 in adult ([facility]); [place] [address] Closed fracture of left ankle with routine healing, subsequent encounter [phone] Allergies Active Allergy Reactions Severity Noted Date Comments Amoxicillin-Pot Clavulanate GI Reaction High 03/30/2015 Diarrhea, Aspartame-Ibuprofen 02/01/2013 documented as of this encounter (statuses as of 08/20/2019) Medications Medication Sig Dispensed Refills Start End Date Status Date Flaxseed-Radha Take by 0 Active Prim-Borage (FLAX mouth. OIL XTRA) Oral Cap OXYcodone-acetaminop Take 1.5 Tabs 0 Active hen (PERCOCET) 5-325 by mouth EVERY MG Oral Tab SIX HOURS NEEDED (MDD 6 tabs). cyclobenzaprine Take 1 Tab by 60 Tab 2 Active (FLEXERIL) 10 MG mouth TWO 7 Oral Tab TIMES DAILY NEEDED for muscle spasm. guaifenesin Take 1 Tab by 60 Tab 0 Active (MUCINEX) 600 MG mouth TWICE 7 Oral TABLET SR 12 DAILY. HRIndications: Mild intermittent asthma with acute exacerbation loratadine-pseudoeph Take 1 Tab by 28 Tab 0 Active edrine (CLARITIN-D mouth DAILY. 8 12 HOUR) 5-120 MG Oral TABLET SR 12 HR Cholecalciferol Take 1 Cap by 30 Cap 5 Active (VITAMIN D) 2000 mouth DAILY. 8 units Oral Cap Pediatric Take 1 Each by 30 Tab 5 Active Ltylndag-Aokkuwwz-U mouth DAILY. 8 (VITACHEW MULTIPLE Caramel flavor VITAMIN) Oral Chew Tab Multiple Take 1 Tab by 30 Tab 5 Active Vitamins-Minerals mouth DAILY. 8 (MULTIVITAMIN WOMEN 50+) Oral Tab Lidocaine 4 % Apply 2 g by Apply 1 Bottle 0 Active externally Gel externally 8 route TWICE DAILY. Olopatadine 0.1 % INSTILL 2 5 mL 4 Active Ophthalmic Solution DROPS INTO 8 BOTH EYES TWO TIMES A DAY gabapentin Take 800 mg by 0 Active (NEURONTIN) 400 MG mouth FOUR Oral Cap TIMES DAILY. albuterol HFA INHALE 2 PUFFS 8.5 g 4 Active (VENTOLIN) 108 (90 INTO LUNGS 9 Base) MCG/ACT EVERY 4 HOURS Inhalation Aero Soln NEEDED FOR SHORTNESS OF BREATH ADVAIR DISKUS 500-50 INHALE ONE 1 Each 3 Active MCG/DOSE Inhalation PUFF BY MOUTH 9 AEROSOL POWDER, TWICE A DAY BREATH ACTIVATED Omeprazole delayed TAKE ONE 60 Cap 5 Active rel cap 20 MG Oral CAPSULE BY 9 CAPSULE DELAYED MOUTH TWICE A RELEASE DAY duloxetine TAKE ONE 30 Cap 2 Active (CYMBALTA) 60 MG CAPSULE BY 9 Oral CAPSULE ENTERIC MOUTH EVERY COATED PARTICLES DAY buPROPion XL TAKE ONE 30 Tab 2 Active (WELLBUTRIN XL) 150 TABLET BY 9 MG Oral TABLET SR 24 MOUTH EVERY HR 24 hour tablet DAY clindamycin Take 4 Caps by 16 Cap 0 Active (CLEOCIN) 150 MG mouth 9 Oral Cap DIRECTED. 1 hour prior to dentist fluticasone SPRAY TWO 16 g 5 Active (FLONASE) 50 MCG/ACT SPRAYS IN EACH 9 Nasal Suspension NOSTRIL EVERY DAY diltiazem CD Take 1 Cap by 30 Cap 1 Active (CARDIZEM CD) 180 MG mouth DAILY. 9 Oral CAPSULE SR 24 HR loratadine Take 1 Tab by 30 Tab 5 Active (CLARITIN,ALAVERT) mouth DAILY. 9 10 MG Oral Tab zolpidem (AMBIEN) 10 Take 1 Tab by 30 Tab 2 Active MG Oral Tab mouth EVERY 9 BEDTIME NEEDED (insomnia). Max Daily Amount: 10 mg. ALPRAZolam (XANAX) Take 1 Tab by 90 Tab 0 Active 0.5 MG Oral Tab mouth THREE 9 TIMES DAILY NEEDED (anxiety). Max Daily Amount: 1.5 mg. clobetasol 1 Appl by 15 g 0 Active (TEMOVATE) 0.05 % Topical route 9 Apply externally DAILY Cream NEEDED (genital itch). clobetasol 1 Appl by 15 g 0 08/20/20 Discontinued (TEMOVATE) 0.05 % Topical route 8 19 (Reorder) Apply externally DAILY Cream NEEDED (genital itch). diltiazem (CARDIZEM TAKE ONE 30 Cap 1 08/20/20 Discontinued CD) 120 MG Oral CAPSULE BY 9 19 CAPSULE SR 24 HR MOUTH EVERY DAY documented as of this encounter (statuses as of 08/20/2019) Active Problems Problem Noted Date Class 3 severe obesity due to excess calories with serious comorbidity and body mass index (BMI) of 45.0 to 49.9 in adult Asthma 02/05/2013 HTN (hypertension) 02/05/2013 CKD (chronic kidney disease) Overview: Dr Napoles Depression with anxiety documented as of this encounter (statuses as of 08/20/2019) Resolved Problems Problem Noted Date Resolved Date [...] as of this encounter (statuses as of 08/20/2019) Immunizations Name Administration Dates Next Due Influenza (IM) Preservative Free 08/20/2019, 09/06/2018, 07/28/2017 Influenza (IM) W/Pres 11/07/2016 PNEUMOCOCCAL POLYSACCHARIDE VACCINE 11/07/2016 documented as of this encounter Social History Tobacco Use Types Packs/Day Years Used Date Passive Smoke Exposure - Never Smoker Smokeless Tobacco: Never Used Alcohol Use Drinks/Week [...] Sign Reading Time Taken Comments Blood Pressure 122/70 08/20/2019 1:21 PM EDT Pulse 91 08/20/2019 1:21 PM EDT Temperature - - Respiratory Rate - - Oxygen Saturation 94% 08/20/2019 1:21 PM EDT Inhaled Oxygen Concentration - - Weight 117 kg (258 lb) 08/20/2019 1:21 PM EDT Height 154.9 cm (5' 1") 08/20/2019 1:21 PM EDT Body Mass Index 48.75 08/20/2019 1:21 PM EDT documented in this encounter Progress Notes Shaan Lainez MD - 08/20/2019 1:00 PM EDT PATIENT: Doris Watson : 1955 DATE OF SERVICE: 08/20/2019 CHIEF COMPLAINT: Chief Complaint Patient presents with Follow Up pt presents for follow up Subjective HISTORY OF PRESENT ILLNESS: Doris Watson is a 64-y.o. female. In for follow up of hypertension. Is checking home BP with VN and been ok . no side effects to medicines currently on higher dose cardizem and denies dizzyness, CP, , or neuro symptoms Edema no worse, Support hose too compressing She was to have shoulder surgery tomorrow but has an ankle fracture . She was wearing a boot that was hurting the knee before found out it was broken it has been 1 month with pain and the x rays taken 1 month after so if going to heal it should have started by now That is why she mayneed a pre op for the ankle before the shoulder gets done Surgery now 10/02 Past Medical History: Diagnosis Date Anemia Arthritis [...] TAKE ONE TABLET BY MOUTH EVERY DAY Cholecalciferol (VITAMIN D) 2000 units Oral Cap Take 1 Cap by mouth DAILY. clindamycin (CLEOCIN) 150 MG Oral Cap Take 4 Caps by mouth DIRECTED. 1 hour prior to dentist clobetasol (TEMOVATE) 0.05 % Apply externally Cream 1 Appl by Topical route DAILY NEEDED (genital itch). cyclobenzaprine (FLEXERIL) 10 MG Oral Tab Take 1 Tab by mouth TWO TIMES DAILY NEEDED for muscle spasm. diltiazem CD (CARDIZEM CD) 180 MG Oral CAPSULE SR 24 HR Take 1 Cap by mouth DAILY. duloxetine (CYMBALTA) 60 MG Oral CAPSULE ENTERIC COATED PARTICLES TAKE ONE CAPSULE BY MOUTH EVERY DAY Flaxseed-Radha Prim-Borage (FLAX OIL XTRA) Oral Cap Take by mouth. fluticasone (FLONASE) 50 MCG/ACT Nasal Suspension SPRAY TWO SPRAYS IN EACH NOSTRIL EVERY DAY gabapentin (NEURONTIN) 400 MG Oral Cap Take 800 mg by mouth FOUR TIMES DAILY. guaifenesin (MUCINEX) 600 MG Oral TABLET SR 12 HR Take 1 Tab by mouth TWICE DAILY. Lidocaine 4 % Apply externally Gel 2 [...] SIX HOURS NEEDED (MDD 6 tabs). Pediatric Tnzbcjre-Dcnnaqbs-S (VITACHEW MULTIPLE VITAMIN) Oral Chew Tab Take 1 Each by mouth DAILY. Caramel flavor zolpidem (AMBIEN) 10 MG Oral Tab Take 1 Tab by mouth EVERY BEDTIME NEEDED (insomnia). Max Daily Amount: 10 mg. No current facility-administered medications for this visit. Allergies Allergen Reactions Amoxicillin-Pot Clavulanate GI Reaction Diarrhea, Ibuprofen [Aspartame-Ibuprofen] Social History Socioeconomic History Marital status: Single [...] drinks Drug use: No Sexual activity: Not on file Lifestyle Physical activity: Days per week: Not on file Minutes per session: Not on file Stress: Not on file Relationships Social connections: Talks on phone: Not on file Gets together: Not on file Attends anabaptism service: Not on file Active member of [...] Narrative Not on file REVIEW OF SYSTEMS: ROS Objective PHYSICAL EXAM: VITALS: BP 122/70 (BP Location: Right arm, Patient Position: Sitting) | Pulse 91 | Ht 5' 1" (1.549 m) | Wt 258 lb (117 kg) | SpO2 94% | BMI 48.75 kg/m Body mass index is 48.75 kg/m. Physical Exam Vitals signs reviewed. Constitutional: Appearance: She is obese. Cardiovascular: Rate and Rhythm: Normal rate and regular rhythm. Pulmonary: Effort: Pulmonary effort is normal. Breath sounds: Normal breath sounds. ASSESSMENT / IMPRESSION: ICD-9-CM ICD-10-CM 1. Pain in joint of left shoulder 719.41 M25.512 2. Essential hypertension 401.9 I10 3. Class 3 severe obesity due to excess calories with serious comorbidity and body mass index (BMI) of 45.0 to 49.9 in adult ([facility]) 278.01 E66.01 V85.42 Z68.42 4. Closed fracture of left ankle with routine healing, subsequent encounter V54.19 [id number] Plan Called ortho office. The shoulder surgery scheduled for 08/21 has been cancelled and scheduled for 10/02 because the need time for the ankle to heal before they will do the shoulder surgery BP and pulse is better on the higher dose cardizem without side effects Author: Shaan Lainez MD 08/20/2019 13:37 documented in this encounter Plan of Treatment Date Type Specialty Care Team Description 09/18/2019 Office Visit Family Practice Shaan Lainez MD [address] [place] [address] [phone] Health Maintenance Due Date Last Done Comments PAP SMEAR 1955 ZOSTER IMMUNIZATION SERIES 2007 (1 of 2) PNEUMOCOCCAL 0-64 YRS (2 of 11/07/2017 11/07/2016 3 - PCV13) MEDICARE ANNUAL WELLNESS 07/28/2018 07/28/2017 VISIT INFLUENZA VACCINE (#1) 2019 09/06/2018, 07/28/2017, 11/07/2016 LIPID DISORDER SCREENING 09/06/2019 09/06/2018, 05/25/2016 DEPRESSION SCREENING 03/18/2020 03/18/2019, 07/28/2017 DIABETES SCREENING 05/09/2020 05/09/2019, 03/21/2019, 09/06/2018, Additional history exists MAMMOGRAM (SCREENING) 05/21/2020 05/21/2019, 09/21/2017, 05/26/2016, Additional history exists COLONOSCOPY SCREENING 04/04/2022 04/04/2012, 03/20/2008 (Previously completed) HPV IMMUNIZATION SERIES Aged Out No longer eligible based on patient's age to complete this topic MENINGOCOCCAL VACCINE IMM Aged Out No longer eligible based on patient's age to complete this topic documented as of this encounter Goals Goal Patient Goal Associated Recent Patient-Stated? Author Type Problems Progress Blood Pressure Blood Pressure HTN 122/70 No Migel, < 140/90 (hypertension) (08/20/2019 MD Shaan 1:21 PM EDT) Note: Hypertension Care Plan Based [...] medications as appropriate the availability of a managed care liaison to help you with your Hypertension patient [...] Educational Resources. record my blood pressure results. [place] is safe and secure way for you [...] Educational Resources: National Heart, Lung, & Blood [place] http://nhlbi.nih.gov/hbp/index.html The DASH Diet Eating Plan http://www.nhlbi.nih.gov/health/health-topics/ topics/dash/ Academy of Nutrition & DIetetics http://eatright.org National Smoking Cessation Site http://smokefree.gov Blood Pressure < Blood Pressure HTN (hypertension) 122/70 (08/20/2019 No Shaan Lainez, 140/90 1:21 PM EDT) Note: Hypertension Care Plan Based [...] Educational Resources. record my blood pressure results. App[employer] is safe and secure way for you [...] Educational Resources: National Heart, Lung, & Blood [place] http://nhlbi.nih.gov/hbp/index.html The DASH Diet Eating Plan http://www.nhlbi.nih.gov/health/health-topics/ topics/dash/ Academy of Nutrition & DIetetics http://eatright.org National Smoking Cessation Site http://smokefree.gov Blood Pressure < Blood Pressure HTN (hypertension) 122/70 (08/20/2019 No Shaan Lainze, 140/90 1:21 PM EDT) Note: Hypertension Care Plan Based [...] Educational Resources: National Heart, Lung, & Blood [place] http://nhlbi.nih.gov/hbp/index.html The DASH Diet Eating Plan http://www.nhlbi.nih.gov/health/health-topics/ topics/dash/ Academy of Nutrition & DIetetics http://eatright.org National Smoking Cessation Site http://smokefree.gov Blood Pressure < 140/90 Blood Pressure 122/70 (08/20/2019 1:21 No Shaan Lainez MD PM EDT) Note: [...] This is an individualized lifestyle goal for Doris Watson: Please maintain a regular sleep schedule. This may help with some symptoms of depression. Unit - lb < 170 Result Component No Shaan Lainez MD Note: BMI < 30 Take all prescribed medications as directed Self-management Shaan Gallo MD Note: This is an individualized self-management [...] filedocumented in this encounter Visit Diagnoses Diagnosis Pain in joint of left shoulder - Primary Pain in joint, shoulder region Essential hypertension Unspecified essential hypertension Class 3 severe obesity due to excess calories with serious comorbidity and body mass index (BMI) of 45.0 to 49.9 in adult (HCC) Closed fracture of left ankle with routine healing, subsequent encounter documented in this encounter Insurance Payer Benefit Plan / Subscriber ID Effective Dates Phone Address Type Group [place] xxxxxxxx 2018-Present [place] MEDIC[place] MEDICARE PART A xxxxxxxxxxx 2016-Present Medicare & B Guarantor Name Account Type Relation to Date of Phone Billing Patient Address Doris Watson Personal/Family 1955 [id number] (Home) [address] [place], [place] ([place]) [phone] documented as of this encounter
--- OUTSIDE RECORDS SUMMARY | 2019-09-12 10:10 | XMS REPORT | Summary of Care ---
:1955 Author Organization [facility] Address [address] [place] [address] Care Team Providers Name Role Phone Shaan Lainez MD Primary Care Provider Juan R Mak MD Unavailable Jaquelin Larsen RN [facility] [employer] Structural Engineer Unavailable Reason for Visit Reason Comments Other pt presents for pre op for left shoulder. Scheduled aug 21. Encounter Details Date Type Department Care Team Description 07/31/2019 Office Visit [facility] Shaan Lainez MD Pre-op evaluation (Primary Dx); Practice [address] Chronic left shoulder pain; [address] [place] [address] Class 3 severe obesity due to excess calories with serious comorbidity and body mass index (BMI) of 45.0 to 49.9 in adult (HCC); [place] [id number] Essential hypertension; [phone] Moderate persistent asthma, unspecified whether complicated; Depression with anxiety Allergies Active Allergy Reactions Severity Noted Date Comments Amoxicillin-Pot Clavulanate GI Reaction High 03/30/2015 Diarrhea, Aspartame-Ibuprofen 02/01/2013 documented as of this encounter (statuses as of 08/01/2019) Medications Medication Sig Dispensed Refills Start Date End Date Status Flaxseed-Radha Take by mouth. 0 Active Prim-Borage (FLAX OIL XTRA) Oral Cap OXYcodone-acetaminophen Take 1.5 Tabs by 0 Active (PERCOCET) 5-325 MG mouth EVERY SIX Oral Tab HOURS NEEDED (MDD 6 tabs). cyclobenzaprine Take 1 Tab by 60 Tab 2 12/16/2016 Active (FLEXERIL) 10 MG Oral mouth TWO TIMES Tab DAILY NEEDED for muscle spasm. guaifenesin (MUCINEX) Take 1 Tab by 60 [...] Each by 30 Tab 5 05/16/2018 Active Ookxrgvm-Ukgmosdn-H mouth DAILY. (VITACHEW MULTIPLE Caramel flavor VITAMIN) Oral Chew Tab Multiple Take 1 Tab by 30 Tab 5 05/16/2018 Active Vitamins-Minerals mouth DAILY. (MULTIVITAMIN WOMEN 50+) Oral Tab Lidocaine 4 % Apply 2 g by Apply 1 Bottle 0 06/04/2018 Active externally Gel externally route TWICE DAILY. clobetasol (TEMOVATE) 1 Appl by Topical 15 g 0 06/04/2018 Active 0.05 % Apply externally route DAILY Cream NEEDED (genital itch). Olopatadine 0.1 % INSTILL 2 DROPS 5 [...] BY MOUTH TWICE A DELAYED RELEASE DAY duloxetine (CYMBALTA) TAKE ONE CAPSULE 30 Cap 2 06/11/2019 Active 60 MG Oral CAPSULE BY MOUTH EVERY ENTERIC COATED DAY PARTICLES buPROPion XL TAKE ONE TABLET 30 Tab [...] Nasal IN EACH NOSTRIL Suspension EVERY DAY ALPRAZolam (XANAX) 0.5 Take 1 Tab by 90 Tab 0 07/17/2019 Active MG Oral Tab mouth THREE TIMES DAILY NEEDED (anxiety). Max Daily Amount: 1.5 mg. zolpidem (AMBIEN) 10 MG Take 1 Tab by 30 Tab 2 07/17/2019 Active Oral Tab mouth EVERY BEDTIME NEEDED (insomnia). Max Daily Amount: 10 mg. diltiazem (CARDIZEM CD) TAKE ONE CAPSULE 30 Cap 1 07/24/2019 Active 120 MG Oral CAPSULE SR BY MOUTH EVERY 24 HR DAY diltiazem CD (CARDIZEM Take 1 Cap by 30 Cap 1 07/31/2019 Active CD) 180 MG Oral CAPSULE mouth DAILY. SR 24 HR loratadine Take 1 Tab by 30 Tab 5 07/31/2019 Active (CLARITIN,ALAVERT) 10 mouth DAILY. MG Oral Tab documented as of this encounter (statuses as of 08/01/2019) Active Problems Problem Noted Date Class 3 severe obesity due to excess calories with serious comorbidity and body mass index (BMI) of 45.0 to 49.9 in adult Asthma 02/05/2013 HTN (hypertension) 02/05/2013 CKD (chronic kidney disease) Overview: Dr Napoles Depression with anxiety documented as of this encounter (statuses as of 08/01/2019) Resolved Problems Problem Noted Date Resolved Date [...] as of this encounter (statuses as of 08/01/2019) Immunizations Name Administration Dates Next Due Influenza (IM) Preservative Free 09/06/2018, 07/28/2017 Influenza (IM) W/Pres 11/07/2016 PNEUMOCOCCAL [...] Sign Reading Time Taken Comments Blood Pressure 136/86 07/31/2019 1:56 PM EDT Pulse 104 07/31/2019 1:56 PM EDT Temperature - - Respiratory Rate - - Oxygen Saturation 98% 07/31/2019 1:56 PM EDT Inhaled Oxygen Concentration - - Weight 117.2 kg (258 lb 6.4 oz) 07/31/2019 1:56 PM EDT Height 154.9 cm (5' 1") 07/31/2019 1:56 PM EDT Body Mass Index 48.82 07/31/2019 1:56 PM EDT documented in this encounter Patient Instructions Patient InstructionsKShaan tyler MD - 07/31/2019 2:00 PM EDTChange the cardizem to 180mg and stop the claritin D Use plain claritin documented in this encounter Progress Notes Shaan Lainez MD - 07/31/2019 2:00 PM EDT PATIENT: Doris Watson : 1955 DATE OF SERVICE: 07/31/2019 Subjective SUBJECTIVE: Doris Watson is a 64-y.o. female who presents to the office today for a preoperative consultation at the request of Dr Morton, who will perform a left total shoulder reverse on 08/21/19. Patient complains of shoulder pain after a fall 1.5 years ago. There was a reported fracture . Tried conservative care but not any better so finally planning for surgery : Patient denies cardiac symptoms: chest pain, palpitations, near-syncope. Past history of pulmonary embolism/deep vein thrombosis: no. There is a history of bleeding complications: no Past history of anesthetic problem: no. Exercise capacity: Can you walk 2 blocks on level ground, or carry 2 bags of groceries up 2 flights of stairs? Yes slowly with a walker Count the number of risk factors in the revised Araujo cardiac risk index. ( RCRI): 0 High risk procedure: eg vascular surgery, any open intraperitoneal or intrathoracic 0 History of ischemic heart disease (history of NC or a positive exercise test , current complaint of chest pain considered to be secondary to myocardial ischemia, use of nitrate therapy, or ECG with pathological Q waves; do not count prior coronary revascularization procedure unless one of the other criteria for ischemic heart disease is present) 0 Hx of CHF, either systolic or diastolic 0 History of cerebrovascular disease (TIA or Stroke) 0 Diabetes mellitus requiring treatment with insulin 0 Preoperative serum creatinine >2.0 mg/dl The risk of cardiac , nonfatal myocardial infarction, and nonfatal cardiac arrest according to the number of above risk predictors is estimated to be: No risk factors - 0.4 percent (95% CI: 0.1 - 0.8) Screening for sleep apnea: Stop-Bang Snoring: Do you snore loudly (louder than talking or heard through closed doors )? Tired: Do you often feel tired, fatigued, or sleepy during the day? Observed: Has anyone observed you stop breathing during your sleep? Pressure: Do you have or are you being treated for high blood pressure? 1 BMI: >35 kg/m2? 1 Age: >50? 1 Neck circumference: >40 cm? Gender: Male? "High risk" for AMBER: (> =) 3 questions "yes" Screening for Alzheimer's 1. During the past 12 months, have you experienced confusion or memory loss that is happening more often or is getting worse? No as long as not on too many pain meds 2. During the past 7 days, did you need help with others to perform everyday activities such as eating, getting dressed, grooming, bathing, walking, or using the toilet? No 3. During the past 7 days, did you need help from others to take care of things such as laundry and housekeeping, banking, shopping, using the telephone, food preparation, transportation, or taking your own medications? No I Past Medical History: Diagnosis Date Anemia Arthritis [...] TIMES DAILY NEEDED for muscle spasm. diltiazem (CARDIZEM CD) 120 MG Oral CAPSULE SR 24 HR TAKE ONE CAPSULE BY MOUTH EVERY DAY duloxetine (CYMBALTA) 60 MG Oral CAPSULE ENTERIC [...] g by Apply externally route TWICE DAILY. loratadine-pseudoephedrine (CLARITIN-D 12 HOUR) 5-120 MG [...] SIX HOURS NEEDED (MDD 6 tabs). Pediatric Zxdsyczi-Gpkgucqx-E (VITACHEW MULTIPLE VITAMIN) Oral Chew Tab Take [...] file Gets together: Not on file Attends judaism service: Not on file Active member of [...] Narrative Not on file REVIEW OF SYSTEMS: CONSTITUTIONAL : thinks B12 is helping her energy EYES: glasses. EARS, NOSE, MOUTH, THROAT and FACE: Denies URI . RESPIRATORY: On high dose advair for asthma Still needing albuterol 2-3 x a day . CARDIOVASCULAR: BP been ok with switch to cardizem .cant be on GOMEZ or diuretic due to easily flip into OLGA . Hard time laying flat GASTROINTESTINAL: Takes 40 mg PPI a day . GENITOURINARY: Sees new modeling and simulation analyst and renal fxn can change week to week INTEGUMENT/BREAST: negative. LYMPHATIC: Left leg bigger chronically . MUSCULOSKELETAL: Has chronic pain , on narcotics from Dr Mak .currently 7.5 mg 4 a day neurontin not to go over 1200mg a day per nephrology . She fell getting off toilet and injured her foot , now in a boot . Not to go over 1 flexeril a day or becomes sedated BEHAVIORAL/PSYCH: Still anxious and depressed despite cymbalta , wellbutrin and xanax tid . Her total dose was cut back when acting sedated on last hospital stay . ENDOCRINE: Not on statin . ALLERGIC/IMMUNOLOGIC: Uses claritin D . Objective OBJECTIVE: BP 136/86 (BP Location: Right arm, Patient Position: Sitting) | Pulse 104 | Ht 5' 1" (1.549 m) | Wt 258 lb 6.4 oz (117.2 kg) | SpO2 98% | BMI 48.82 kg/m Exam is stable weight no apparent distress, eyes clear, ears normal, oral- moist, no suspicious lesions. Neck supple, without masses. Heart regular without murmur. Lungs clear. Abdomen soft non-tender no masses. Extremity no clubbing cyanosis left leg in a boot. Walking well with good balance . rom shoulder only to 90 degrees . Neuro -no focal deficits Skin no suspicious lesions. Dress and hygiene ok Good eye contact Thoughts and speech alert today , little more animated Affect Appropriate Mood normal EKG sinus tachy 103 ASSESSMENT: No contraindications to planned surgery 1. Pre-op evaluation 2. Chronic left shoulder pain note per nephrology neurontin should be no higher than 1200mg a day 3. Class 3 severe obesity due to excess calories with serious comorbidity and body mass index (BMI) of 45.0 to 49.9 in adult (HCC) 4. Essential hypertension BP been ok but she has had bouts of renal failure so avoid gomez , arb diuretics . She has done ok on cardizem to also control pulse which tends to be fast, so will be raising the dose to 180 and see back in a few weeks. I dont feel this will be a need to cancel the surgery.Have avoided beta blockers due to her mood DO and her asthma 5. Moderate persistent asthma, unspecified whether complicated --cancel the claritin D ? Affecting BP pulse and kidneys 6. Depression with anxiety she still not feel in remission and reports ambien not effective for sleep. Will not change regimen as excess sedatives have made her sluggish and accident prone . 7. Patient requires perioperative deep vein thrombosis prophylaxis: Per surgeons protocol . 8 Proceed with surgery as planned. No food or liquids the morning of surgery. Call surgeon if develop respiratory illness, fever, or other illness.. Author: Shaan Lainez MD 07/31/2019 14:31 documented in this encounter Plan of Treatment Date Type Specialty Care Team Description 08/20/2019 Office Visit Family Practice Shaan Lainez MD [address] [id number] [phone] Name Type Priority Associated Diagnoses Order Schedule AMBULATORY 12 LEAD EKG EKG Routine Pre-op evaluation Ordered: 07/31/2019 (GLOBAL) Health Maintenance Due Date Last Done Comments [...] Problems Progress Blood Pressure Blood Pressure HTN 136/86 No Migel, < 140/90 (hypertension) (07/31/2019 MD Shaan 1:56 PM EDT) Note: Hypertension Care Plan Based [...] medications as appropriate the availability of a rehab care assistant to help you with your Hypertension patient [...] for my next office visit is 190 terminal worker goal 175. limit alcohol consumption. For men two drinks per day and women one drink per day. if currently smoking, will discuss how to quit smoking with my healthcare provider and work towards quitting. Educational Resources: National Heart, Lung, & Blood [place] http://nhlbi.nih.gov/hbp/index.html The DASH Diet Eating Plan http://www.nhlbi.nih.gov/health/health-topics/ topics/dash/ Academy of Nutrition & DIetetics http://eatright.org National Smoking Cessation Site http://smokefree.gov Blood Pressure < Blood Pressure HTN (hypertension) 136/86 (07/31/2019 Shaan Gallo, 140/90 1:56 PM EDT) Note: Hypertension Care Plan Based [...] Educational Resources: National Heart, Lung, & Blood [place] http://nhlbi.nih.gov/hbp/index.html The DASH Diet Eating Plan http://www.nhlbi.nih.gov/health/health-topics/ topics/dash/ Academy of Nutrition & DIetetics http://eatright.org National Smoking Cessation Site http://smokefree.gov Blood Pressure < Blood Pressure HTN (hypertension) 136/86 (07/31/2019 No Shaan Lainez, 140/90 1:56 PM EDT) Note: Hypertension Care Plan Based [...] Educational Resources. record my blood pressure results. [employer] is safe and secure way for you [...] Educational Resources: National Heart, Lung, & Blood [place] http://nhlbi.nih.gov/hbp/index.html The DASH Diet Eating Plan http://www.nhlbi.nih.gov/health/health-topics/ topics/dash/ Academy of Nutrition & DIetetics http://eatright.org National Smoking Cessation Site http://smokefree.gov Blood Pressure < 140/90 Blood Pressure 136/86 (07/31/2019 1:56 No Shaan Lainez MD PM EDT) Note: [...] screen (PHQ-9) Depression 10 (07/28/2017 2:29 PM Shaan Gallo MD total score < 5 EDT) Note: This is an individualized treatment (depression) goal for Doris Watson: Displayed above is your goal for a depression screening (PHQ-9) score that would indicate good control of your depression. Keep a regular sleep schedule Lifestyle Shaan Gallo MD Note: This is an individualized lifestyle [...] filedocumented in this encounter Visit Diagnoses Diagnosis Pre-op evaluation - Primary Preoperative examination, unspecified Chronic left shoulder pain Pain in joint, shoulder region Class 3 severe obesity due to excess calories with serious comorbidity and body mass index (BMI) of 45.0 to 49.9 in adult (HCC) Essential hypertension Unspecified essential hypertension Moderate persistent asthma, unspecified whether complicated Depression with anxiety Dysthymic disorder documented in this encounter Insurance Payer Benefit Plan / Subscriber ID Effective Dates Phone Address Type Group [place]ICA[place] xxxxxxxx 2018-Present Medicaid [place] MEDIC[place] MEDICARE PART A xxxxxxxxxxx 2016-Present Medicare & B Guarantor Name Account Type Relation to Date of Phone Billing Patient Address Doris Watson Personal/Family 1955 [id number] (Home) [address] [place], [place] (Work) [phone] documented as of this encounter
--- OUTSIDE RECORDS SUMMARY | 2019-09-12 10:10 | XMS REPORT | Continuity of Care Document ---
:1955 External Reference #:[id number] Author Name Yamil Carrasco MD (transmitted by agent of provider Martha Chase) Address [address] [place] [address] Care Team Providers Name Role Phone Juan R Mak MD - Physical Care Team Information Collection Systems Technician Medicine & Rehabilitation Shaan Lainez MD - Family Medicine Care Team Information Collection Systems Technician [phone] Problems Active Problems Provider Date Arthralgia of [...] Test Result H/L Range Note Xray 07/19/2019 [facility] US Renal <pending> [address] [place] [address] [phone] Basic Metabolic 07/18/2019 [facility] Sodium 138 mmol/L Normal 135-[address] [place] [address] [phone] Chloride 102 mmol/L Normal 101-111 Co2 Carbon Dioxide 32 mmol/L Normal 22-32 Glucose 90 mg/dL Normal 70-100 Blood Urea Nitrogen 17 mg/dL Normal 6-24 Creatinine 1.27 mg/dL High 0.51-0.95 BUN/Creatinine Ratio 13.4 Normal 8-20 Calcium 9.5 mg/dL Normal 8.6-10.3 Egfr Non- 42.6 >60 Egfr 51.6 >60 1 Potassium 4.4 mmol/L Normal 3.5-5.0 2 Anion Gap 4 mmol/L Normal 2-11 Urinalysis Profile 07/18/2019 [facility] Urine Color Yellow [address] [place] [address] [phone] Urine Appearance Clear Urine Specific [place] 1.019 Normal 1.010-1.030 Urine pH 5.0 Normal 5-9 Urine Urobilinogen Negative Negative Urine Ketones Negative Negative Urine Protein Negative Negative Urine Leukocytes Negative Negative Urine Blood Negative Negative Urine Nitrite Negative Negative Urine Bilirubin Negative Negative Urine Glucose Negative Negative CBC Auto 07/18/2019 [facility] White Blood 5.9 10^3/uL Normal 3.5-10.[address] [place] [address] [phone] Red Blood Count 4.34 10^6/uL Normal 3.70-4.87 [...] Blood Cells % 0.1 Laboratory test 07/18/2019 [facility] Total Protein 21 mg/dL finding [address] [place] [address] [phone] Creatinine Random Urine 149.52 mg/dL CBC Auto 07/10/2019 [facility] White Blood 8.1 10^3/uL Normal 3.5-10.[address] [place] [address] [phone] Red Blood Count 4.31 10^6/uL Normal 3.70-4.87 [...] Blood Cells % 0.0 Basic Metabolic 07/10/2019 [facility] Sodium 139 mmol/L Normal 135-145 Panel [address] [place] [address] [phone] Potassium 4.2 mmol/L Normal 3.5-5.0 Chloride 99 mmol/L Low 101-111 Co2 Carbon Dioxide 31 mmol/L Normal 22-32 Anion Gap 9 mmol/L Normal 2-11 Glucose 94 mg/dL Normal 70-100 Blood Urea Nitrogen 30 mg/dL High 6-24 Creatinine 3.08 mg/dL High 0.51-0.95 BUN/Creatinine Ratio 9.7 Normal 8-20 Calcium 9.5 mg/dL Normal 8.6-10.3 Egfr Non- 15.3 >60 Egfr 18.6 >60 3 Xray 07/10/2019 [facility] US Renal Complete <pending> [address] [place] [address] [phone] 1 Because ethnic data is not always [...] report test result due to hemolysis. 3 Because ethnic data is not always readily [...] dialysis) Procedures Date Code Description Status 03/26/2019 [id number] Inj/Aspir Major JT Or Bursa W/ US Completed 03/21/2018 [id number] Bone Mineral Density Test Completed Medical Devices Description No Information Available Encounters Type Date Location Provider Dx Diagnosis Office Visit 05/07/2019 [facility]opedic Katlyn Morton MD M19.012 Primary 1:15p [facility] oste[facility], left shoulder M19.112 Post-traumatic osteoarthritis, left shoulder Office Visit 03/26/2019 Dave Morton M19.012 Primary 10:45a [facility], left C.M.A. shoulder M19.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, right shoulder E66.01 Morbid (severe) obesity due to excess calories Office Visit 03/10/2019 [facility] Jean-Paul, J45.901 Unspecified asthma 8:19a Assoc,pc [...] I95.9 Hypotension, unspecified Yamil Carrasco MD 07/10/2019 N17.9 Acute kidney failure, unspecified Yamil Carrasco MD 07/10/2019 N18.4 Chronic kidney disease, stage 4 (severe) Yamil Carrasco MD 07/09/2019 M19.012 Primary osteoarthritis, [...] 10:00 am - Yamil Carrasco MD at [facility] Kpfwdivqqp77/02/2019 7:30 am - Katlyn Morton MD at [facility].08/08/2019 1:30 pm - Katlyn Morton MD at [facility]. - Yamil Carrasco MDN17.9 Acute kidney failure, tvuhdkmjnxfA68.4 Chronic kidney disease, stage 4 (severe)E66.01 Morbid (severe) obesity due to excess inwkwvotC85.9 Hypotension, unspecified Functional Status Description No Information Available Mental Status Description No Information Available Referrals Refer to Dr Reason for Referral Status Appt Date [place] [facility] morbid obesity nutrition consult for Sent 2018 preop shoulder weight loss [address] [place] [address] [phone]
[2019-09-12] MEDS ORDERED: Dexamethasone IV* 4 MG/ML 1 ML (4 MG) ONE (10:47)
[2019-09-12] MEDS ORDERED: ceFAZolin 2 GM PREMIX in ORs 2 GM/50 ML BAG ONE (10:48)
[2019-09-12] MEDS ORDERED: Buffered Lidocaine 1% SYRIN* 1 ML/SYRINGE INTRADERM ONE (10:48)
[2019-09-12] MEDS ORDERED: Levalbuterol 0.63MG/3ML NEB* UNIT OF USE INH ONE ×2 (10:53→10:59)
[2019-09-12] MEDS ORDERED: Ondansetron INJ* 2 MG/ML VIAL ONE (11:42)
[2019-09-12] MEDS ORDERED: Midazolam* 1 MG/ML 5 ML VIAL (5 MG) ONE (11:42)
[2019-09-12] MEDS ORDERED: fentaNYL* 50 MCG/ML 2 ML VIAL (100 MCG VIAL) ONE (11:42)
[2019-09-12] MEDS ORDERED: Propofol* 10 MG/ML 20 ML BTL ONE (11:42)
[2019-09-12] MEDS ORDERED: Chloroprocaine 2%* 20 ML VIAL ONE (12:32)
[2019-09-12] MEDS ORDERED: Phenylephrine 10 MG/ML VIAL* 1 ML VIAL ONE (12:34)
[2019-09-12] MEDS ORDERED: Phenylephrine 40 MCG/ML SYRINGE ONE (12:34)
[2019-09-12] MEDS ORDERED: Bupivacaine 0.5%* 50 ML MDV VIAL ONE (12:48)
[2019-09-12] MEDS ORDERED: Lidocaine 1% w EPI 1:100,000* MDV 20 ML VIAL ONE (12:49)
[2019-09-12] MEDS ORDERED: Naloxone* 0.4 MG/ML 1 ML VIAL IV PRN (12:50)
[2019-09-12] MEDS ORDERED: Ondansetron INJ* 2 MG/ML VIAL IV PRN ×2 (12:50→14:03)
[2019-09-12] MEDS ORDERED: Scopolamine 1.5 mg* PATCH TRANSDERM PRN (12:50)
[2019-09-12] MEDS ORDERED: DiMENhydriNATE IV* 50 MG/ML VIAL IV PUSH PRN (12:50)
[2019-09-12] MEDS ORDERED: fentaNYL* 50 MCG/ML 2 ML VIAL (100 MCG VIAL) IV PRN (12:50)
[2019-09-12] MEDS ORDERED: Cyclobenzaprine TAB* 10 MG PO PRN ×2 (14:03→14:07)
[2019-09-12] MEDS ORDERED: oxyCODONE TAB* 5 MG TAB PO PRN ×3 (14:03→18:13)
[2019-09-12] MEDS ORDERED: diPHENhydraMINE PO* 25 MG PO PRN (14:03)
[2019-09-12] MEDS ORDERED: Ondansetron ODT TAB* 4 MG PO PRN (14:03)
[2019-09-12] MEDS ORDERED: traMADol TAB* 50 MG PO PRN (14:03)
[2019-09-12] MEDS ORDERED: diPHENhydraMINE IV* 50 MG/ML 1 ml VIAL (BENADRYL) IV PRN (14:03)
[2019-09-12] MEDS ORDERED: Magnesium Hydroxide LIQ* 30 ML UDC PO PRN (14:03)
[2019-09-12] MEDS ORDERED: Docusate CAP* 100 MG PO PRN (14:07)
[2019-09-12] MEDS ORDERED: Fluticasone NASAL SPRAY 50MCG* 16 gm SPRAY BTL BOTH NARES PRN (14:07)
[2019-09-12] MEDS ORDERED: Polyethylene Glycol 3350* 17 GM PACKET PO PRN (14:07)
[2019-09-12] MEDS: HYDROmorphone INJ1* 1 MG/ML SYRINGE IV PRN ×5 (14:30→14:50)
[2019-09-12] MEDS ORDERED: HYDROmorphone INJ1* 1 MG/ML SYRINGE ONE (14:33)
[2019-09-12] MEDS ORDERED: oxyCODONE/Acetamin 5/325 MG* TAB ONE (14:35)
[2019-09-12] MEDS: oxyCODONE/Acetamin 5/325 MG* TAB PO PRN ×2 (14:36→14:50)
[2019-09-12] MEDS ORDERED: Metoprolol Tartrate IV* 1 MG/ML 5 ML VIAL ONE (14:47)
[2019-09-12] MEDS ORDERED: ceFAZolin 1 GM ADVAN(*) 1 GM in NS 0.9% 50 ML* 50 ML IVPB SCH (15:00)
[2019-09-12] MEDS ORDERED: Amoxicillin PO (*) 500 MG CAP PO SCH (15:00)
[2019-09-12] MEDS ORDERED: Lactated Ringers 1000 ML Bag* 1,000 ML IV SCH (15:00)
--- NOTE | 2019-09-12 15:27 | OP ---
Operative Report - Blank - Operative Report Date of Operation: 09/12/19 Note: PATIENT: Doris Watson DATE OF : 1955 DATE OF SURGERY: 09/12/2019 SURGEON: Bartolome Fischer MD [employer] COUNSELOR: YOLANDA Aldridge, whos assistance was necessary for positioning, retraction, help with instrumentation, and closure. ANESTHESIOLOGIST: Dr. Calabrese PREOPERATIVE DIAGNOSIS: Left distal fibular fracture nonunion POSTOPERATIVE DIAGNOSIS: Left distal fibular fracture nonunion OPERATION: Left distal fibular fracture nonunion open reduction and internal fixation with iliac crest bone autograft and allograft. ANESTHESIA: Spinal IMPLANTS: Arthrex distal fibula plate and screws TOURNIQUET TIME: One hour with a well-padded calf tourniquet at 250mmHg SPECIMENS: none ESTIMATED BLOOD LOSS: minimal COMPLICATIONS: none STATUS: Stable from the operating room to the recovery room. INDICATIONS FOR PROCEDURE: Home, sustaining a left distal fibular fracture over 4 months ago. This has gone on to nonunion. She continues to have limiting pain at the left ankle. Both operative and non operative treatment alternatives were reviewed. Further, the nature and risks of surgery were reviewed in careful detail, in the office as well as the pre-operative holding area. Our discussions regarding the risks of surgery included, but were not limited to, infection, wound problems, nerve injury, neuroma, RSD, persistent symptoms, blood clot, nonunion, malunion, post- traumatic arthritis, hardware failure, failure of the surgery, and even the remote chance of catastrophic complication. DESCRIPTION OF PROCEDURE: The patient was seen in the preoperative holding unit and informed written consent was obtained. The appropriate extremity was marked. The patient was then brought to the operating room and carefully positioned on the operating room table. Anesthesia was induced. All bony prominences were padded with great care. A chlorhexidine based pre-scrub was performed followed by a chloraprep prep and drape in standard sterile fashion. A surgical safety pause was then conducted in which we confirmed the appropriate patient, extremity, planned procedure, availability of equipment, indication and administration of prophylactic antibiotics, and DVT prophylaxis in the form of a compression boot on the non-surgical extremity. I began with Esmarch exsanguination of the limb and inflated the tourniquet. I then utilized a laterally based incision overlying the distal fibula. Great care was taken to protect the superficial peroneal nerve, which was not visualized within the field of view. I dissected down through the soft tissue layers to expose the distal fibula. The nonunion site was easily identified by placing the 15 blade scalpel into the fibrous tissue. The distal fragment was grossly unstable. All the fibrinous tissue in the nonunion site was excised with a 15 blade scalpel, and then a Rongeur. The bone edges were freshened back to bleeding bone with the rongeur. Attention was then turned to the left iliac crest which had been previously prepped and draped in a standard fashion. A small amount of Marcaine with epinephrine was placed in the subcutaneous tissues and then also used to anesthetize the periosteum and the soft tissues over the ASIS. Just posterior to the ASIS, a small stab incision using a 15 blade was made. A Jamshidi needle was then advanced being careful to stay centered on the iliac crest. This was advanced slowly and carefully through the superior cortex of the crest between the inner and outer tables of bone. Once this area had been reached, a syringe was used to remove 3cc of bone marrow aspirate. The stylet was then removed from the Jamshidi needle and multiple cores on bone graft were harvested from the iliac crest. The incision site for the bone graft was then copiously irrigated and closed in layers utilizing 3-0 Monocryl and 3-0 nylon. A sterile dressing was applied. I packed the iliac crest bone graft into the distal fibula nonunion site. This was tamped into place. I then mixed the bone marrow aspirate with chopped up cancellous allograft chips. This was also placed into the distal fibula nonunion site. I then placed an Arthrex distal fibula anatomic plate laterally. Placement was confirmed fluoroscopically. Screw holes were drilled and screws were placed with good fixation. Fluoroscopy was used to confirm alignment, length of the fibula, and placement of the hardware. At this point, we irrigated copiously and then closed in layers meticulously utilizing 3-0 Monocryl for the deep and subdermal layers and 3-0 nylon for the skin. A sterile dressing was then applied followed by a splint with the ankle in a neutral position. The patient was then awakened from anesthesia and transferred to the recovery room in stable condition. There were no complications. All needle and sponge counts were correct at the end of the case. ATTESTATION: I attest I was present and scrubbed and performed the critical portions of the procedure myself. POSTOPERATIVE PLAN: The postop plan is for [id number] for an anticipated duration of 6 weeks. Follow-up will be in 2 weeks. At that time we will likely transition into a [id number] aircast boot.
--- NOTE | 2019-09-12 18:04 | CONSULT ---
Consult Consult: INPATIENT PAIN CONSULTATION Doris Byrne is a 64 year old female. I have seen her since 2011 for bilateral knee pain. She has been on chronic opioid therapy for many years, most recently oxycodone/APAP 7.5/325 up to 4 times a day. She has a history of CKD and asthma. Somewhere around June 03 2019, she fell in the bathroom and fractured her distal fibula. She was put in a walking boot and followed with Dr. Fischer. Unfortunately, follow up x-rays indicated that there was no sign of healing. 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 She was admitted to the hospital today and underwent a ORIF of her left ankle with an iliac crest bone graft. I am asked to assist in pain management. PAST MEDICAL HISTORY: Asthma, GERD, CKD depression. Will need a reverse left total shoulder replacement Allergies Allergy/AdvReac Type Severity Reaction Status Date / Time ibuprofen Allergy Severe Swelling Verified 09/12/19 10:53 Of Face,Lips,& Throat latex Allergy Severe rash, red Verified 09/12/19 10:53 patches Current Medications Acetaminophen (Tylenol Tab*) 975 mg PO Q8HR ROSIE Albuterol (Ventolin Hfa Inhaler*) 2 puff INH Q4HR PRN PRN Reason: Asthma symptoms Alprazolam (Xanax Tab*) 0.5 mg PO TID PRN PRN Reason: ANXIETY Amoxicillin (Amoxicillin Po (*)) 500 mg PO SEE INSTRUCTIONS ROSIE Bisacodyl (Dulcolax Supp*) 10 mg AK DAILY PRN PRN Reason: CONSTIPATION Bupropion HCl (Wellbutrin Xl *) 150 mg PO QAM ROSIE Cyclobenzaprine HCl (Flexeril Tab*) 10 mg PO Q6H PRN PRN Reason: SPASMS Cyclobenzaprine HCl (Flexeril Tab*) 10 mg PO TID PRN PRN Reason: SPASMS Diltiazem HCl (Cardizem Cd Cap*) 180 mg PO QAM ROSIE Diphenhydramine HCl (Benadryl Iv*) 25 mg IV Q6H PRN PRN Reason: PRURITIS Diphenhydramine HCl (Benadryl Po*) 25 mg PO Q6H PRN PRN Reason: PRURITIS Docusate Sodium (Colace Cap*) 100 mg PO BID ROSIE Docusate Sodium (Colace Cap*) 200 mg PO BEDTIME PRN PRN Reason: CONSTIPATION Duloxetine HCl (Cymbalta Cap*) 60 mg PO QAM [facility] Fluticasone Propionate (Flonase Nasal [place] 50mcg*) 2 spray BOTH NARES QAM PRN PRN Reason: CONGESTION Gabapentin (Neurontin Cap(*)) 800 mg PO TID [facility] Lactated Ringer's (Lactated Ringers 1000 Ml Bag*) 1,000 mls @ 75 mls/hr IV PER RATE [facility] Last Admin: 09/12/19 16:15 Dose: 75 mls/hr Cefazolin Sodium 1 gm/ Sodium (Chloride) 50 mls @ 200 mls/hr IVPB Q8H [facility] Stop: 09/13/19 12:44 Lactulose (Lactulose*) 30 ml PO BID PRN PRN Reason: CONSTIPATION Magnesium Hydroxide (Milk Of Magnesia Liq*) 30 ml PO BID [facility] Magnesium Hydroxide (Milk Of Magnesia Liq*) 30 ml PO Q6H PRN PRN Reason: CONSTIPATION Mometasone Furoate/Formoterol Fumar (Dulera 200/5 Mdi*) 2 puff INH BID [facility] Multivitamins (Theragran Tab*) 1 tab PO DAILY [facility] Olopatadine HCl (Patanol 0.1% Ophth (Nf)) 1 drop BOTH EYES BID [facility]; Protocol Ondansetron HCl (Zofran Inj*) 4 mg IV Q6H PRN PRN Reason: NAUSEA Ondansetron HCl (Zofran Odt Tab*) 4 mg PO Q6H PRN PRN Reason: NAUSEA Oxycodone HCl (Roxycodone Tab*) 10 mg PO Q4H PRN PRN Reason: PAIN - SEVERE Oxycodone HCl (Roxycodone Tab*) 5 mg PO Q4H PRN PRN Reason: PAIN - MODERATE Pantoprazole Sodium (Protonix Tab*) 40 mg PO BID [facility] Polyethylene Glycol/Electrolytes (Miralax*) 17 gm PO EVERY OTHER DAY PRN PRN Reason: CONSTIPATION Rivaroxaban (Xarelto(*)) 10 mg PO DAILY [facility] Scopolamine (Transderm-Scop 1.5 Mg Patch*) 1 patch TRANSDERM Q72H PRN PRN Reason: Nausea/Vomiting Tramadol HCl (Ultram*) 50 mg PO Q6HR PRN PRN Reason: PAIN - MILD Zolpidem Tartrate (Ambien Tab*) 12.5 mg PO BEDTIME PRN PRN Reason: INSOMNIA SOCIAL HISTORY: Non smoker, non drinker. Lives in [facility] by herself Vital Signs: Temp Pulse Resp BP Pulse Ox 97.7 F 89 18 146/68 99 09/12/19 17:00 09/12/19 17:00 09/12/19 17:00 09/12/19 17:00 09/12/19 17:00 EXAM: GENERAL: No distress LUNGS: Clear anteriorly HEART: Reg rhythm ABDOMEN: Soft EXTREMITIES: Left ankle in splint. Can wiggle toes NEUROLOGIC: A&O. Moves 4 extremities ASSESSMENT: 1. ORIF Left ankle/distal fibula with ICBG PLAN: Given her baseline use of opioids, she may require as much as 15 mg of oxycodone Q4 PRN. I will write for this. I will add bowel medications (Senna) to the COlace and MOM. I will follow
[2019-09-12] MEDS ORDERED: Senna TAB 8.6 mg* TAB PO PRN (18:13)
[2019-09-12] MEDS: OLOPATADINE 0.1% BOTH EYES SCH (20:08)
[2019-09-12] MEDS: Pantoprazole TAB * 40 MG TAB PO SCH (20:10)
[2019-09-12] MEDS: Docusate CAP* 100 MG PO SCH (20:10)
[2019-09-12] MEDS: oxyCODONE TAB* 5 MG TAB PO PRN (20:10)
[2019-09-12] MEDS: Gabapentin CAP(*) 400 MG PO SCH (20:10)
[2019-09-12] MEDS: ceFAZolin 1 GM ADVAN(*) 1 GM in NS 0.9% 50 ML* 50 ML IVPB SCH (20:12)
[2019-09-12] MEDS: Magnesium Hydroxide LIQ* 30 ML UDC PO SCH (20:12)
[2019-09-12] MEDS: ALPRAZolam TAB* 0.5 MG PO PRN (22:37)
[2019-09-12] MEDS: Acetaminophen TAB* 325 MG PO SCH (22:37)
[2019-09-13] MEDS: Zolpidem TAB* 10 MG PO PRN (00:35)
[2019-09-13] MEDS: ceFAZolin 1 GM ADVAN(*) 1 GM in NS 0.9% 50 ML* 50 ML IVPB SCH ×2 (04:24→12:24)
[2019-09-13] MEDS: oxyCODONE TAB* 5 MG TAB PO PRN ×4 (04:27→17:32)
[2019-09-13] MEDS: Acetaminophen TAB* 325 MG PO SCH ×3 (06:23→21:36)
[2019-09-13] MEDS: Albuterol HFA INHALER* 8 gm MDI INH PRN ×2 (06:26→19:49)
[2019-09-13] MEDS: Pantoprazole TAB * 40 MG TAB PO SCH ×2 (09:03→20:54)
[2019-09-13] MEDS: DULoxetine DR CAP* 60 MG CAP.DR PO SCH (09:12)
[2019-09-13] MEDS: Vitamin THERAPEUTIC TAB PO SCH (09:12)
[2019-09-13] MEDS: BuPROPion XL* 150 MG TAB.XL PO SCH (09:12)
[2019-09-13] MEDS: Docusate CAP* 100 MG PO SCH ×2 (09:12→20:54)
[2019-09-13] MEDS: Rivaroxaban TAB(*) 10 MG PO SCH (09:13)
[2019-09-13] MEDS: Diltiazem CD CAP* 180 MG PO SCH (09:13)
[2019-09-13] MEDS: Magnesium Hydroxide LIQ* 30 ML UDC PO SCH ×2 (09:13→20:55)
[2019-09-13] MEDS: Gabapentin CAP(*) 400 MG PO SCH ×3 (09:13→20:55)
[2019-09-13] MEDS: OLOPATADINE 0.1% BOTH EYES SCH ×2 (09:15→20:55)
[2019-09-13] MEDS: PTO: Fluticasone-Salmeterol 500-50* DISKUS INH SCH (09:16)
[2019-09-13] MEDS: ALPRAZolam TAB* 0.5 MG PO PRN ×2 (09:27→20:54)
--- NOTE | 2019-09-13 11:40 | PN ---
Progress Note - Progress Note Date of Service: 09/13/19 SOAP: Subjective: [Pt seen in bed today. States that the leg is sore but the hip where graft was taken from is a little more sore. She states that she is doing well otherwise. She denies any chest pain, SOB, nausea or vomiting. She is NWB of the LLE, PT will be working with her on Knee scooter and wheelchair use. ] Objective: [General: pt is alert and orientedx3. NAD MSK, LLE: Inspection reveals splint in place. Toes are exposed. She is able to wiggle toes and has sensation in all toes. Cap refill is less than 2 seconds. No TTP proximal to the splint. ] Vital Signs Temp 98 F 09/13/19 07:07 Pulse 95 09/13/19 07:07 Resp 18 09/13/19 09:40 BP 140/82 09/13/19 07:07 Pulse Ox 97 09/13/19 09:40 Intake & Output 09/12/19 09/13/19 09/13/19 18:59 06:59 18:59 Intake Total 0059 447 1125 Output Total 1000 Balance 1700 -300 1045 Weight 249 lb 12.8 oz Intake: IV Fluids 1700 990 LR 1700 990 IVPB 55 ABX - CEFAZOLIN 55 Oral 700 Output: Urine 1000 Assessment: [POD 1 Left distal fibular fracture nonunion ORIF with illiac crest bone autograft and allograft. ] Plan: [Continue with current pain medication PT to see the pt today to work on her with knee scooter and wheelchair use Continue with NWB LLE ]
[2019-09-14] MEDS: oxyCODONE TAB* 5 MG TAB PO PRN ×4 (04:52→20:51)
[2019-09-14] MEDS: Acetaminophen TAB* 325 MG PO SCH ×3 (06:11→20:46)
[2019-09-14] MEDS: Albuterol HFA INHALER* 8 gm MDI INH PRN ×2 (06:33→11:28)
[2019-09-14] MEDS: Pantoprazole TAB * 40 MG TAB PO SCH ×2 (08:49→20:46)
[2019-09-14] MEDS: DULoxetine DR CAP* 60 MG CAP.DR PO SCH (08:50)
[2019-09-14] MEDS: BuPROPion XL* 150 MG TAB.XL PO SCH (08:50)
[2019-09-14] MEDS: Vitamin THERAPEUTIC TAB PO SCH (08:50)
[2019-09-14] MEDS: Diltiazem CD CAP* 180 MG PO SCH (08:51)
[2019-09-14] MEDS: Gabapentin CAP(*) 400 MG PO SCH ×3 (08:51→20:46)
[2019-09-14] MEDS: Rivaroxaban TAB(*) 10 MG PO SCH (08:51)
[2019-09-14] MEDS: Docusate CAP* 100 MG PO SCH ×2 (08:51→19:54)
[2019-09-14] MEDS: PTO: Fluticasone-Salmeterol 500-50* DISKUS INH SCH (08:52)
[2019-09-14] MEDS: OLOPATADINE 0.1% BOTH EYES SCH ×2 (08:52→20:45)
[2019-09-14] MEDS: Magnesium Hydroxide LIQ* 30 ML UDC PO SCH ×2 (08:52→19:54)
[2019-09-14] MEDS ORDERED: Bisacodyl SUPP* 10 MG SUPP PR PRN (14:03)
--- NOTE | 2019-09-14 18:32 | PN ---
Progress Note - Progress Note Date of Service: 09/14/19 SOAP: Subjective: [Pt reports pain managed well wtih po meds. Good appetite. No CP, SOB, dizziness. Syas she is not able to use knee scooter because she is too short and has bilateral knee replacements. 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
[2019-09-15] MEDS: Acetaminophen TAB* 325 MG PO SCH ×3 (05:11→21:47)
[2019-09-15] MEDS: Pantoprazole TAB * 40 MG TAB PO SCH ×2 (07:18→19:57)
[2019-09-15] MEDS: ALPRAZolam TAB* 0.5 MG PO PRN ×2 (07:21→19:57)
[2019-09-15] MEDS: PTO: Fluticasone-Salmeterol 500-50* DISKUS INH SCH (07:21)
[2019-09-15] MEDS: Diltiazem CD CAP* 180 MG PO SCH (08:31)
[2019-09-15] MEDS: Gabapentin CAP(*) 400 MG PO SCH ×3 (08:31→19:57)
[2019-09-15] MEDS: Rivaroxaban TAB(*) 10 MG PO SCH (08:32)
[2019-09-15] MEDS: Docusate CAP* 100 MG PO SCH ×2 (08:32→19:58)
[2019-09-15] MEDS: oxyCODONE TAB* 5 MG TAB PO PRN ×3 (08:32→23:41)
[2019-09-15] MEDS: Vitamin THERAPEUTIC TAB PO SCH (08:32)
[2019-09-15] MEDS: BuPROPion XL* 150 MG TAB.XL PO SCH (08:32)
[2019-09-15] MEDS: DULoxetine DR CAP* 60 MG CAP.DR PO SCH (08:32)
[2019-09-15] MEDS: OLOPATADINE 0.1% BOTH EYES SCH ×2 (08:33→20:01)
[2019-09-15] MEDS: Magnesium Hydroxide LIQ* 30 ML UDC PO SCH ×2 (08:33→19:58)
--- NOTE | 2019-09-15 09:08 | PN ---
Progress Note - Progress Note Date of Service: 09/15/19 SOAP: Subjective: [Pt rates her pain 05/29 but says this is ok with her as she is "used to pain" from various other surgeries/conditions. po meds helping. Denies CP/SOB/ dizziness.] Objective: [A and O x 3, NAD Seated in regular chair with feet on floor. L LE splint/dressing c/d/i. Able to wiggle toes, NV function intact. L iliac crest dressing changed. Wound benign. No IV access at this point Vital Signs: Temp Pulse Resp BP Pulse Ox 97.9 F 81 17 100/49 99 09/15/19 07:15 09/15/19 07:15 09/15/19 08:32 09/15/19 07:15 09/15/19 07:29 ] Assessment: [s/p L distal fib fx non-union ORIF with iliac crest bone graft POD# 4] Plan: [Joint chair so pt can elevate legs Pain managment NWB LLE Possible d/c home tomorrow]
[2019-09-15] MEDS: Albuterol HFA INHALER* 8 gm MDI INH PRN (19:59)
[2019-09-15] MEDS: Zolpidem TAB* 10 MG PO PRN (21:47)
[2019-09-16] MEDS: oxyCODONE TAB* 5 MG TAB PO PRN ×2 (03:46→14:22)
[2019-09-16] MEDS: Acetaminophen TAB* 325 MG PO SCH ×2 (06:24→14:19)
[2019-09-16] MEDS: ALPRAZolam TAB* 0.5 MG PO PRN (06:55)
--- NOTE | 2019-09-16 08:43 | PN ---
Progress Note - Progress Note Date of Service: 09/16/19 SOAP: Subjective: Pt is doing well. Pain is controlled. Denies F/C, CP/SOB or calf pain. Objective: PE- 64 y/o WDWN F NAD, A&O x3 LLE- splint c/d/i, iliac crest dressing changed, inc c/d/i without signs of infection, +F/E toes, SILT distally, brisk cap refill Vital Signs Temp Pulse Resp BP Pulse Ox 98.1 F 93 18 129/78 95 09/16/19 08:00 09/16/19 08:00 09/16/19 08:00 09/16/19 08:00 09/16/19 03:42 Assessment: [s/p L distal fib fx non-union ORIF with iliac crest bone graft POD# 5] Plan: Cont Pain management per Dr. Murdock recommendations NWB LLE Keep splint clean dry and intact Xarelto for DVT prophylaxis Plan d/c to home today. Awaiting medical equipment approval and arrival
[2019-09-16] MEDS: BuPROPion XL* 150 MG TAB.XL PO SCH (08:53)
[2019-09-16] MEDS: DULoxetine DR CAP* 60 MG CAP.DR PO SCH (08:53)
[2019-09-16] MEDS: Diltiazem CD CAP* 180 MG PO SCH (08:54)
[2019-09-16] MEDS: Vitamin THERAPEUTIC TAB PO SCH (08:54)
[2019-09-16] MEDS: Gabapentin CAP(*) 400 MG PO SCH ×2 (08:54→14:18)
[2019-09-16] MEDS: Pantoprazole TAB * 40 MG TAB PO SCH (08:54)
[2019-09-16] MEDS: Rivaroxaban TAB(*) 10 MG PO SCH (08:54)
[2019-09-16] MEDS: Magnesium Hydroxide LIQ* 30 ML UDC PO SCH (08:55)
[2019-09-16] MEDS: OLOPATADINE 0.1% BOTH EYES SCH (08:55)
[2019-09-16] MEDS: Docusate CAP* 100 MG PO SCH (08:55)
[2019-09-16] MEDS: PTO: Fluticasone-Salmeterol 500-50* DISKUS INH SCH (08:57)
[2019-09-16 15:49] VITALS: BP 133/66
--- NOTE | 2019-09-16 15:58 | DS ---
Orthopedic Discharge Summary - Discharge Summary Date of Admission:09/12/19 Date of Discharge: [09/16/19] Date of Surgery: [09/12/19] Attending Orthopedic Provider: [Dr. Fischer] Pre-operative Diagnosis: [Left distal fibula fracture nonunion] Operative Procedure: [Left distal fibula fracture nonunion ORIF with iliac bone graft] Disposition of Patient: [Home] Condition of Patient: [Stable] History: ROJELIO ALVAREZ is a 64 year old F with left fibula fracture nonunion. Patient has failed conservative management and has elected to undergo a left distal fibula fracture nonunion ORIF with iliac bone graft Hospital Course: ROJELIO was admitted to [facility] on 09/13/19. Patient underwent a left distal fibula fracture nonunion ORIF with iliac bone graft without complication followed by a brief recovery in PACU and transfer to the Short Stay Surgical Unit in stable condition. She was non weight bearing on the left lower extremity. Pain management, physical therapy and occupational therapy also participated in this patients care. Post-op day 1: patient was alert and in no acute distress. Dressing was clean, dry and intact. Operative extremity able to flex and extend digits sensation intact to light touch distally, DP2+. Patient remained stable. Post-op day four: splint was clean dry and intact, NVI. Patient was deemed to be medically and orthopedically stable for discharge to home with home health care aids and the appropriate medical equipment. Physical therapy goals were met. Home Medications Medication Instructions Recorded Confirmed Type Omeprazole CAP (NF) [Prilosec CAP* 20 mg PO BID 06/18/14 09/12/19 History 20 MG] Cyclobenzaprine TAB* [Flexeril 10 10 mg PO TID PRN 01/24/18 09/11/19 History MG TAB*] DULoxetine DR CAP* [Cymbalta CAP*] 60 mg PO QAM 01/24/18 09/12/19 History Fluticasone NASAL SPRAY 50MCG* 2 spray BOTH NARES QAM PRN 01/24/18 09/12/19 History [Flonase NASAL SPRAY 50MCG*] Olopatadine 0.1% OPHTH (NF) 1 drop BOTH EYES BID 01/24/18 09/12/19 History [Patanol 0.1% OPHTH (NF)] Bupropion XL* [Wellbutrin XL *] 150 mg PO QAM 02/04/19 09/12/19 History Flaxseed Oil [[place]-3 Flaxseed Oil] 1,200 mg PO QAM 02/04/19 09/12/19 History Gabapentin CAP(*) [Neurontin 400 800 mg PO TID 03/08/19 09/12/19 History mg CAP(*)] Polyethylene Glycol 3350* 17 gm PO EVERY OTHER DAY PRN 03/08/19 09/12/19 History [Miralax*] Zolpidem TAB* [Ambien*] 12.5 mg PO BEDTIME PRN 03/08/19 09/12/19 History ALPRAZolam TAB* [Xanax TAB*] 0.5 mg PO TID PRN MDD 2mg 05/17/19 09/12/19 History Docusate CAP* [Colace Cap*] 200 mg PO BEDTIME PRN 05/17/19 09/12/19 History dilTIAZem HCl [Cartia Xt] 180 mg PO QAM 05/24/19 09/12/19 History Albuterol HFA INHALER* [Ventolin 2 puff INH Q4HR PRN 09/11/19 09/12/19 History HFA Inhaler*] Amoxicillin PO (*) [Amoxicillin 500 mg PO SEE INSTRUCTIONS 09/11/19 09/11/19 History 500 MG CAP*] Fluticasone-Salmeterol 500-50* 1 puff INH QAM 09/11/19 09/11/19 History [Advair Diskus 500-50*] Lactulose* 30 ml PO BID PRN udc 09/16/19 Rx Magnesium Hydroxide LIQ* [Milk of 30 ml PO BID udc 09/16/19 Rx Magnesia LIQ*] Rivaroxaban TAB(*) [Xarelto 10 mg 10 mg PO DAILY tab 09/16/19 Rx (*)] oxyCODONE TAB* [Roxycodone TAB 5 10 mg PO Q4H PRN tab 09/16/19 Rx mg*] Discharge Instructions: Activity: * Non Weight Bearing left lower extremity * Continue physical therapy and occupational therapy exercises as shown Wound care: * Keep splint clean dry and intact * Change hip dressing daily. Redress with gauze and tegaderm Call Orthopedic office for: * Redness * Increased pain * Fever Go to ER with shortness of breath or chest pain. Diet: * Regular diet * Increase fluids and fiber to prevent constipation. * Continue to use stool softeners, call office if no bowel motion within 48 hours. Medications See Home Medication List in your packet for medications that you should take after discharge. DVT Prophylaxis: Xarelto Dosin mg 1 tab by mouth once daily for 30 days after your surgery * Be aware that this medication increases bleeding tendency. Pain Control: Oxycodone Dosin mg 1 tab by mouth every 4-6 hours as needed for pain. Maximum of 6 tabs per day. Continue per Dr. Mak Please note that Percocet contains Tylenol (acetaminophen). Maximum daily dose of Tylenol is 4000 mg from all sources. Antibiotics are required prior to any dental work. FOLLOW UP: Follow up with Dr. Fischer Within 10-14 days, call for appointment Please call the orthopedic office with any questions or concerns ([phone])
== END 2019-09-16 16:39 | disposition home health service (06) | DRG 494 ==
LOC: EDSTATUS 09:15 → AA 10:05 → INTOOBSV 10:05 → AA 14:00 → SSU 16:09 → OBSVTOIN 09-13 14:00
PROVIDERS: ADMIT Orthopaedic Surgery; ATTEND Orthopaedic Surgery
PROC: 0QB33ZZ Excision of Left Pelvic Bone, Percutaneous Approach (ICD-10-PCS; 2019-09-12)
PROC: 07DR3ZZ Extraction of Iliac Bone Marrow, Percutaneous Approach (ICD-10-PCS; 2019-09-12)
PROC: 0QSJ04Z Reposition Right Fibula with Internal Fixation Device, Open Approach (ICD-10-PCS; principal; 2019-09-12 12:00)
DX: S82.65XK Nondisplaced fracture of lateral malleolus of left fibula, subsequent encounter for closed fracture with nonunion (principal); W01.0XXD Fall on same level from slipping, tripping and stumbling without subsequent striking against object, subsequent encounter; I10 Essential (primary) hypertension; J45.909 Unspecified asthma, uncomplicated; N18.9 Chronic kidney disease, unspecified; K21.9 Gastro-esophageal reflux disease without esophagitis; F32.9 Major depressive disorder, single episode, unspecified; F41.9 Anxiety disorder, unspecified; G89.29 Other chronic pain; M19.019 Primary osteoarthritis, unspecified shoulder; Z79.899 Other long term (current) drug therapy; Z82.49 Family history of ischemic heart disease and other diseases of the circulatory system; Z82.3 Family history of stroke; Z83.3 Family history of diabetes mellitus; Z80.9 Family history of malignant neoplasm, unspecified; Z88.6 Allergy status to analgesic agent
CPT/HCPCS: 76000; A9270-GY; C1713; C1776; G0378; J0690; J1100; J1170; J2250; J2400; J2405; J2704; J3010; J3490

== ENCOUNTER 2020-12-14 17:07 | Inpatient (IN) ==
[2020-12-14] MEDS ORDERED: Naloxone 0.4 mg VIAL 0.4 mg/ml 1 ml VIAL IV PUSH ONE (17:35)
[2020-12-14 18:46] LABS: ALT 14 U/L (7-52); AST 17 U/L (13-39); Albumin 4.5 g/dL (3.2-5.2); Albumin/Globulin Ratio 1.5 (1-3); Alcohol, S < 10 mg/dL (<10); Alkaline Phosphatase 78 U/L (34-104); BUN/Creatinine Ratio 11.4 (8-20); Blood Urea Nitrogen 43 mg/dL (6-24); C Reactive Protein 20.03 mg/L (<8.01); CO2 Carbon Dioxide 20 mmol/L (22-32); Calcium 9.5 mg/dL (8.6-10.3); Chloride 103 mmol/L (101-111); EGFR African American 14.7 (>60); EGFR Non-African American 12.1 (>60); Glucose 80 mg/dL (70-100); Magnesium 2.3 mg/dL (1.9-2.7); Sodium 136 mmol/L (135-145); Total Protein 7.5 g/dL (6.4-8.9)
[2020-12-14 18:47] LABS: Anion Gap 13 mmol/L (2-11); Potassium 5.1 mmol/L (3.5-5.0); Troponin I 0.01 ng/mL (<0.03)
[2020-12-14 19:00] LABS: TSH Ultra Thyroid Stim Horm 3.47 mcIU/mL (0.34-5.60)
[2020-12-14] MEDS ORDERED: NS 0.9% 1000 ml BAG 1,000 ML IV ONE (19:21)
[2020-12-14 19:25] LABS: ABS Eosinophils 0.1 10^3/ul (0-0.6); ABS Lymphocytes 1.3 10^3/ul (1.0-4.8); ABS Monocytes 0.7 10^3/ul (0-0.8); ABS Neutrophils 8.7 10^3/ul (1.5-7.7); Eosinophil % 1.1 %; Hematocrit 34 % (35-47); Hemoglobin 11.1 g/dL (12.0-16.0); Mean Corpuscular HGB Conc 33 g/dL (31-36); Mean Corpuscular Hemoglobin 30 pg (27-31); Mean Corpuscular Volume 91 fL (80-97); Mean Platelet Volume 8.4 fL (7.4-10.4); Platelet Count 286 10^3/uL (150-450); Red Blood Count 3.68 10^6 /uL (3.70-4.87); Red Cell Distribution Width 16 % (10-15); White Blood Count 10.8 10^3/uL (3.5-10.8)
[2020-12-14] MEDS ORDERED: Ondansetron 4 mg VIAL 2 MG/ML 2 ml VIAL IV ONE (19:27)
[2020-12-14 19:34] LABS: INR 1.01 (0.82-1.09)
[2020-12-14] MEDS ORDERED: Lactated Ringers 1000 ml BAG 1,000 ML IV ONE (20:49)
[2020-12-14] MEDS ORDERED: oxyCODONE/Acetamin 5/325 mg TAB PO PRN (20:56)
[2020-12-14] MEDS ORDERED: Ondansetron 4 mg VIAL 2 MG/ML 2 ml VIAL IV PRN (20:58)
[2020-12-14] MEDS ORDERED: Lactated Ringers 1000 ml BAG 1,000 ML IV SCH ×3 (21:00)
[2020-12-14 21:44] LABS: Urine Appearance Cloudy; Urine Bilirubin 1+ (Negative); Urine Blood Negative (Negative); Urine Color Yellow; Urine Glucose Negative (Negative); Urine Ketones Negative (Negative); Urine Nitrite Negative (Negative); Urine Protein 1+(30 mg/dL) (Negative); Urine Specific Gravity 1.028 (1.010-1.030); Urine Urobilinogen Negative (Negative)
[2020-12-14 21:54] LABS: Urine Bacteria Absent (Absent); Urine Red Blood Cell Trace(0-2/hpf) (Absent); Urine White Blood Cell Absent (Absent)
[2020-12-14 22:19] LABS: Urine Cannabinoids Screen None Detected (None Detect)
[2020-12-14 22:20] LABS: Urine Benzodiazepine Screen Presumptive Positive (None Detect); Urine Opiates Screen Presumptive Positive (None Detect)
[2020-12-14] MEDS ORDERED: Albuterol HFA INHALER 8 gm MDI INH PRN (22:39)
[2020-12-14] MEDS ORDERED: Naloxone 0.4 mg VIAL 0.4 mg/ml 1 ml VIAL IV PUSH PRN (23:33)
[2020-12-15] MEDS: Heparin 5000 UNITS/ML 1 mL VIAL SUBCUT SCH ×4 (03:00→20:46)
[2020-12-15] MEDS: Mometasone/Formoter 200/5 MDI INH SCH ×3 (03:01→20:59)
[2020-12-15] MEDS ORDERED: Naloxone 0.4 mg VIAL 2 MG in NS 0.9% 250 ml 245 ML IV SCH (04:00)
[2020-12-15] MEDS: NALOXONE IV SCH ×2 (04:31→10:09)
[2020-12-15] MEDS: [UNRECOGNIZED DRUG - OTHER] IV SCH ×2 (04:31→10:09)
[2020-12-15] MEDS: SPIRIVA Respimat (tiotropium) 2.5 mcg/inh Inhaler INH SCH (07:40)
[2020-12-15] MEDS: Cholecalciferol (VIT D3) 1,000 unit TAB PO SCH (11:44)
[2020-12-15 16:20] LABS: ABS Lymphocytes 0.3 10^3/ul (1.0-4.8); ABS Monocytes 0.2 10^3/ul (0-0.8); ABS Neutrophils 8.2 10^3/ul (1.5-7.7); Hematocrit 34 % (35-47); Hemoglobin 10.6 g/dL (12.0-16.0); Lymphocyte % 3.8 %; Mean Corpuscular HGB Conc 32 g/dL (31-36); Mean Corpuscular Hemoglobin 30 pg (27-31); Mean Corpuscular Volume 95 fL (80-97); Mean Platelet Volume 8.1 fL (7.4-10.4); Platelet Count 253 10^3/uL (150-450); Red Blood Count 3.55 10^6 /uL (3.70-4.87); Red Cell Distribution Width 16 % (10-15); White Blood Count 8.8 10^3/uL (3.5-10.8)
[2020-12-15 17:39] LABS: BUN/Creatinine Ratio 16.4 (8-20); Blood Urea Nitrogen 34 mg/dL (6-24); CO2 Carbon Dioxide 22 mmol/L (22-32); Calcium 9.2 mg/dL (8.6-10.3); Chloride 108 mmol/L (101-111); EGFR African American 29.3 (>60); EGFR Non-African American 24.2 (>60); Glucose 69 mg/dL (70-100); Sodium 139 mmol/L (135-145)
[2020-12-15 17:45] LABS: Anion Gap 9 mmol/L (2-11)
[2020-12-15] MEDS: oxyCODONE/Acetamin 5/325 mg TAB PO PRN (20:46)
[2020-12-16 05:39] LABS: ABS Lymphocytes 0.8 10^3/ul (1.0-4.8); ABS Monocytes 0.7 10^3/ul (0-0.8); ABS Neutrophils 6.2 10^3/ul (1.5-7.7); Hematocrit 30 % (35-47); Hemoglobin 9.7 g/dL (12.0-16.0); Lymphocyte % 9.9 %; Mean Corpuscular HGB Conc 33 g/dL (31-36); Mean Corpuscular Hemoglobin 30 pg (27-31); Mean Corpuscular Volume 92 fL (80-97); Mean Platelet Volume 8.5 fL (7.4-10.4); Platelet Count 236 10^3/uL (150-450); Red Blood Count 3.21 10^6 /uL (3.70-4.87); Red Cell Distribution Width 16 % (10-15); White Blood Count 7.7 10^3/uL (3.5-10.8)
[2020-12-16] MEDS: Heparin 5000 UNITS/ML 1 mL VIAL SUBCUT SCH ×3 (05:48→21:23)
[2020-12-16 06:01] LABS: BUN/Creatinine Ratio 21.1 (8-20); Calcium 9.5 mg/dL (8.6-10.3); EGFR African American 36.5 (>60); EGFR Non-African American 30.2 (>60); Magnesium 2.3 mg/dL (1.9-2.7); Phosphorus 2.7 mg/dL (2.5-5.0); Potassium 4.8 mmol/L (3.5-5.0)
[2020-12-16] MEDS: Cholecalciferol (VIT D3) 1,000 unit TAB PO SCH (08:55)
[2020-12-16] MEDS: SPIRIVA Respimat (tiotropium) 2.5 mcg/inh Inhaler INH SCH (11:39)
[2020-12-16] MEDS: Mometasone/Formoter 200/5 MDI INH SCH ×2 (11:40→20:17)
[2020-12-16] MEDS: oxyCODONE/Acetamin 5/325 mg TAB PO PRN (15:34)
[2020-12-17] MEDS: Heparin 5000 UNITS/ML 1 mL VIAL SUBCUT SCH ×3 (05:15→21:02)
[2020-12-17 08:28] LABS: ABS Lymphocytes 1.3 10^3/ul (1.0-4.8); ABS Monocytes 0.7 10^3/ul (0-0.8); ABS Neutrophils 4.8 10^3/ul (1.5-7.7); Eosinophil % 0.1 %; Hematocrit 29 % (35-47); Hemoglobin 9.5 g/dL (12.0-16.0); Lymphocyte % 18.8 %; Mean Corpuscular HGB Conc 33 g/dL (31-36); Mean Corpuscular Hemoglobin 30 pg (27-31); Mean Corpuscular Volume 91 fL (80-97); Mean Platelet Volume 8.1 fL (7.4-10.4); Platelet Count 256 10^3/uL (150-450); Red Cell Distribution Width 17 % (10-15); White Blood Count 6.8 10^3/uL (3.5-10.8)
[2020-12-17] MEDS: oxyCODONE/Acetamin 5/325 mg TAB PO PRN ×2 (09:29→17:34)
[2020-12-17] MEDS: Cholecalciferol (VIT D3) 1,000 unit TAB PO SCH (09:31)
[2020-12-17] MEDS: Mometasone/Formoter 200/5 MDI INH SCH ×2 (09:36→19:38)
[2020-12-17] MEDS: SPIRIVA Respimat (tiotropium) 2.5 mcg/inh Inhaler INH SCH (09:36)
[2020-12-17 09:43] LABS: BUN/Creatinine Ratio 26.7 (8-20); Calcium 9.6 mg/dL (8.6-10.3); EGFR African American 49.6 (>60); Potassium 4.5 mmol/L (3.5-5.0)
[2020-12-17] MEDS: Olopatadine 0.1% OPHTH (NF) 1 DROP BTL BOTH EYES SCH (22:28)
[2020-12-18] MEDS: Heparin 5000 UNITS/ML 1 mL VIAL SUBCUT SCH (05:30)
[2020-12-18] MEDS: oxyCODONE/Acetamin 5/325 mg TAB PO PRN (05:33)
[2020-12-18 06:01] LABS: BUN/Creatinine Ratio 25.7 (8-20); Calcium 9.4 mg/dL (8.6-10.3); EGFR Non-African American 55.4 (>60); Potassium 4.3 mmol/L (3.5-5.0)
[2020-12-18] MEDS: Mometasone/Formoter 200/5 MDI INH SCH (07:52)
[2020-12-18] MEDS: SPIRIVA Respimat (tiotropium) 2.5 mcg/inh Inhaler INH SCH (07:52)
[2020-12-18] MEDS: Cholecalciferol (VIT D3) 1,000 unit TAB PO SCH (09:01)
[2020-12-18] MEDS: Olopatadine 0.1% OPHTH (NF) 1 DROP BTL BOTH EYES SCH (09:05)
[2020-12-18 12:32] VITALS: BP 137/72
== END 2020-12-18 12:48 | disposition home health service (06) | DRG 917 ==
LOC: SSU 17:07 → ED 17:07 → OBSVTOIN 20:51 → ICU 21:51 → SSU 23:10 → ICU 12-15 01:47 → MEDTELE 12-16 01:15
PROVIDERS: ADMIT Internal Medicine; ATTEND Internal Medicine

== ENCOUNTER 2021-01-28 14:43 | Observation (INO) ==
[2021-01-28] MEDS ORDERED: Dexamethasone IV 4 MG/ML VIAL 1 ml VIAL IV SLOW PU ONE (15:06)
[2021-01-28] MEDS ORDERED: Albuterol HFA INHALER 8 gm MDI INH ONE (15:07)
[2021-01-28 16:21] LABS: ABS Basophils 0.1 10^3/ul (0-0.2); ABS Lymphocytes 0.7 10^3/ul (1.0-4.8); ABS Monocytes 1.1 10^3/ul (0-0.8); ABS Neutrophils 14.6 10^3/ul (1.5-7.7); Eosinophil % 0.1 %; Hematocrit 38 % (35-47); Hemoglobin 12.1 g/dL (12.0-16.0); Mean Corpuscular HGB Conc 32 g/dL (31-36); Mean Corpuscular Hemoglobin 29 pg (27-31); Mean Corpuscular Volume 90 fL (80-97); Mean Platelet Volume 8.1 fL (7.4-10.4); Platelet Count 323 10^3/uL (150-450); Red Blood Count 4.26 10^6 /uL (3.70-4.87); Red Cell Distribution Width 16 % (10-15); White Blood Count 16.4 10^3/uL (3.5-10.8)
[2021-01-28 16:26] LABS: Activated Partial Thrombo Time 27.1 seconds (26.0-38.0); INR 0.95 (0.82-1.09)
[2021-01-28 16:32] LABS: Troponin I 0.01 ng/mL (<0.03)
[2021-01-28 16:34] LABS: Albumin 4.4 g/dL (3.2-5.2); Albumin/Globulin Ratio 1.4 (1-3); BUN/Creatinine Ratio 10.7 (8-20); C Reactive Protein 14.14 mg/L (<8.01); Calcium 8.9 mg/dL (8.6-10.3); EGFR African American 34.8 (>60); EGFR Non-African American 28.8 (>60); Globulin 3.1 g/dL (2-4); Influenza A Molecular Negative (Negative); Influenza B Molecular Negative (Negative); Potassium 3.3 mmol/L (3.5-5.0); Total Bilirubin 0.4 mg/dL (0.2-1.0); Total Protein 7.5 g/dL (6.4-8.9)
[2021-01-28 16:55] LABS: Ferritin 10.8 ng/mL (11-307)
[2021-01-28 17:00] LABS: Urine Appearance Cloudy; Urine Bilirubin 2+ (Negative); Urine Blood Negative (Negative); Urine Color Yellow; Urine Glucose Negative (Negative); Urine Ketones Negative (Negative); Urine Nitrite Negative (Negative); Urine Protein 2+(100 mg/dL) (Negative); Urine Specific Gravity 1.027 (1.010-1.030); Urine Urobilinogen Negative (Negative)
[2021-01-28] MEDS ORDERED: cefTRIAXone 1 gm/50 mL NS BAG 1 GM/50 ML BAG IV ONE (17:09)
[2021-01-28] MEDS ORDERED: Azithromycin 500 mg/250 ml NS 500 MG/250 ML BAG IVPB ONE (17:09)
[2021-01-28 17:11] LABS: Urine Bacteria Absent (Absent); Urine Red Blood Cell Trace(0-2/hpf) (Absent); Urine Squamous Epithelial Cell Present (Absent); Urine White Blood Cell Trace(0-5/hpf) (Absent)
[2021-01-28] MEDS ORDERED: NS 0.9% 1000 ml BAG 1,000 ML IV ONE (17:23)
[2021-01-28] MEDS ORDERED: NS 0.9% 1000 ml BAG 1,000 ML IV.FLUID IV ONE (17:25)
[2021-01-28] MEDS ORDERED: Potassium Chlor 20 meq TAB.ER PO ONE (17:32)
[2021-01-28 17:47] LABS: Magnesium 1.5 mg/dL (1.9-2.7)
[2021-01-28] MEDS ORDERED: Magnesium Sulfate IV 3 GM in NS 0.9% 100 ml BAG 100 ML IVPB ONE (17:54)
[2021-01-28] MEDS ORDERED: oxyCODONE/Acetamin 5/325 mg TAB PO PRN (18:25)
[2021-01-28] MEDS: KCL 20 MEQ/100 ML IVPREMIX 20 MEQ/100 ML BAG IV SCH (18:29)
[2021-01-28] MEDS ORDERED: Lactated Ringers 1000 ml BAG 1,000 ML IV SCH (20:00)
[2021-01-28] MEDS ORDERED: Enoxaparin 40 MG/0.4 ML SYR SUBCUT SCH (21:00)
[2021-01-28] MEDS: Albuterol HFA INHALER 8 gm MDI INH PRN (22:28)
[2021-01-28] MEDS: CMCS: Diclofenac 1% GEL (NF) 100 GM TUBE TOPICAL SCH (22:28)
[2021-01-28] MEDS: CMCS: Olopatadine 0.1% OPHTH (NF) 1 DROP BTL BOTH EYES SCH ×2 (22:46→22:47)
[2021-01-29] MEDS: KCL 20 MEQ/100 ML IVPREMIX 20 MEQ/100 ML BAG IV SCH (01:23)
[2021-01-29 06:43] LABS: ABS Lymphocytes 0.4 10^3/ul (1.0-4.8); ABS Monocytes 0.8 10^3/ul (0-0.8); ABS Neutrophils 17.4 10^3/ul (1.5-7.7); Hematocrit 33 % (35-47); Hemoglobin 10.6 g/dL (12.0-16.0); Lymphocyte % 2.4 %; Mean Corpuscular HGB Conc 32 g/dL (31-36); Mean Corpuscular Hemoglobin 28 pg (27-31); Mean Corpuscular Volume 89 fL (80-97); Mean Platelet Volume 8.4 fL (7.4-10.4); Nucleated Red Blood Cells % 0.1; Platelet Count 248 10^3/uL (150-450); Red Blood Count 3.73 10^6 /uL (3.70-4.87); Red Cell Distribution Width 17 % (10-15); White Blood Count 18.7 10^3/uL (3.5-10.8)
[2021-01-29 06:59] LABS: BUN/Creatinine Ratio 14.6 (8-20); Calcium 8.8 mg/dL (8.6-10.3); EGFR African American 50.1 (>60); EGFR Non-African American 41.4 (>60); Potassium 4.5 mmol/L (3.5-5.0)
[2021-01-29] MEDS: Albuterol HFA INHALER 8 gm MDI INH PRN (07:56)
[2021-01-29] MEDS: CMCS: Olopatadine 0.1% OPHTH (NF) 1 DROP BTL BOTH EYES SCH (08:20)
[2021-01-29] MEDS: CMCS: Diclofenac 1% GEL (NF) 100 GM TUBE TOPICAL SCH ×2 (08:21→13:23)
[2021-01-29] MEDS ORDERED: Fluticasone NASAL SPRAY 50MCG 16 gm SPRAY BTL BOTH NARES SCH (09:00)
[2021-01-29] MEDS ORDERED: FLUTICASONE/UMECLIDIN/VILANTER 1 PUFF MDI INH SCH (09:00)
[2021-01-29] MEDS ORDERED: TRELEGY ELLIPTA INH SCH (11:30)
[2021-01-29 12:06] VITALS: BP 136/88
[2021-01-29 12:33] LABS: Magnesium 2.5 mg/dL (1.9-2.7)
[2021-01-29] MEDS ORDERED: cefTRIAXone 1 gm/50 mL NS BAG 1 GM/50 ML BAG IVPB SCH ×2 (15:00→17:00)
== END 2021-01-29 15:15 | disposition home or self-care (01) ==
LOC: ED 14:43 → MED 14:43
PROVIDERS: ADMIT Internal Medicine; ATTEND Internal Medicine

== ENCOUNTER 2021-11-03 09:04 | Observation (INO) ==
[2021-11-03] MEDS ORDERED: NS 0.9% 1000 ml BAG 1,000 ML IV ONE (09:14)
[2021-11-03] MEDS ORDERED: Iodixanol (CONTRAST) 320 MG/ML 100 ML SDV IV ONE (09:32)
[2021-11-03 09:33] LABS: ABS Lymphocytes 1.2 10^3/ul (1.0-4.8); ABS Monocytes 0.3 10^3/ul (0-0.8); ABS Neutrophils 5.4 10^3/ul (1.5-7.7); Eosinophil % 0.4 %; Hematocrit 43 % (35-47); Hemoglobin 14.3 g/dL (12.0-16.0); Lymphocyte % 17.5 %; Mean Corpuscular HGB Conc 34 g/dL (31-36); Mean Corpuscular Hemoglobin 30 pg (27-31); Mean Corpuscular Volume 89 fL (80-97); Mean Platelet Volume 8.2 fL (7.4-10.4); Platelet Count 367 10^3/uL (150-450); Red Blood Count 4.79 10^6 /uL (3.70-4.87); Red Cell Distribution Width 16 % (10-15); White Blood Count 6.9 10^3/uL (3.5-10.8)
[2021-11-03 09:40] LABS: Activated Partial Thrombo Time 35.9 seconds (26.0-38.0); INR 1.05 (0.86-1.15)
[2021-11-03 09:50] LABS: Albumin 4.8 g/dL (3.2-5.2); Albumin/Globulin Ratio 1.2 (1-3); Calcium 10.2 mg/dL (8.6-10.3); Globulin 3.9 g/dL (2-4); HDL Cholesterol 72.1 mg/dL; Potassium 4.1 mmol/L (3.5-5.0); Total Bilirubin 0.5 mg/dL (0.2-1.0); Total Protein 8.7 g/dL (6.4-8.9); eGFR CKD-EPI 52.6 (>60)
[2021-11-03 09:53] LABS: Troponin I 0.01 ng/mL (<0.03)
[2021-11-03 11:15] LABS: C Reactive Protein 11.84 mg/L (<8.01)
[2021-11-03 11:18] LABS: PCO2 Arterial 31 mmHg (35-45); PO2 Arterial 132 mmHg (80-100)
[2021-11-03] MEDS ORDERED: Ondansetron 4 mg VIAL 2 MG/ML 2 ml VIAL IV ONE (11:45)
[2021-11-03 11:55] LABS: Urine Appearance Clear; Urine Bilirubin Negative (Negative); Urine Blood Negative (Negative); Urine Color Yellow; Urine Glucose Negative (Negative); Urine Ketones 2+ (Negative); Urine Nitrite Negative (Negative); Urine Protein 3+(>=500 mg/dL) (Negative); Urine Urobilinogen Negative (Negative)
[2021-11-03 11:58] LABS: Urine Bacteria Absent (Absent); Urine Red Blood Cell 2+(6-10/hpf) (Absent); Urine White Blood Cell Trace(0-5/hpf) (Absent)
[2021-11-03 12:13] LABS: Urine Specific Gravity > 1.060 (1.002-1.030)
[2021-11-03 12:14] LABS: Urine Benzodiazepine Screen Presumptive Positive (None Detect); Urine Cannabinoids Screen None Detected (None Detect); Urine Opiates Screen None Detected (None Detect)
[2021-11-03 12:18] LABS: Alcohol, S < 13 mg/dL (<13); Salicylate < 2.50 mg/dL (<30)
[2021-11-03] MEDS ORDERED: Albuterol HFA INHALER 8 gm MDI INH PRN (14:00)
[2021-11-03 14:03] LABS: TSH Ultra Thyroid Stim Horm 2.11 mcIU/mL (0.34-5.60)
[2021-11-03 14:17] LABS: Vitamin D Total 25(OH) 44.2 ng/mL (20-50)
[2021-11-03] MEDS ORDERED: Albuterol/Ipratropium NEB.SOL (2.5/0.5 MG) 3 ML NEB.SOLN INH SCH (15:00)
[2021-11-03] MEDS: OLOPATADINE 0.1% BOTH EYES SCH ×2 (16:55→22:20)
[2021-11-03] MEDS: Enoxaparin 40 MG/0.4 ML SYR SUBCUT SCH (16:56)
[2021-11-03] MEDS ORDERED: NS 0.9% 1000 ml BAG 1,000 ML IV SCH (17:00)
[2021-11-03] MEDS ORDERED: Albuterol/Ipratropium NEB.SOL (2.5/0.5 MG) 3 ML NEB.SOLN INH PRN (17:04)
[2021-11-04 05:53] LABS: ABS Lymphocytes 1.7 10^3/ul (1.0-4.8); ABS Monocytes 0.7 10^3/ul (0-0.8); ABS Neutrophils 5.5 10^3/ul (1.5-7.7); Eosinophil % 0.4 %; Hematocrit 39 % (35-47); Lymphocyte % 21.6 %; Mean Corpuscular HGB Conc 34 g/dL (31-36); Mean Corpuscular Hemoglobin 30 pg (27-31); Mean Corpuscular Volume 89 fL (80-97); Platelet Count 327 10^3/uL (150-450); Red Blood Count 4.31 10^6 /uL (3.70-4.87); Red Cell Distribution Width 17 % (10-15); White Blood Count 7.9 10^3/uL (3.5-10.8)
[2021-11-04 06:07] LABS: Albumin 4.4 g/dL (3.2-5.2); Albumin/Globulin Ratio 1.3 (1-3); Calcium 9.6 mg/dL (8.6-10.3); Globulin 3.3 g/dL (2-4); Potassium 4.1 mmol/L (3.5-5.0); Total Bilirubin 0.6 mg/dL (0.2-1.0); Total Protein 7.7 g/dL (6.4-8.9); eGFR CKD-EPI 50.5 (>60)
[2021-11-04] MEDS ORDERED: CALCIUM VITAMIN D3 VITAMIN K PO SCH (09:00)
[2021-11-04] MEDS ORDERED: Fluticasone NASAL SPRAY 50MCG 16 gm SPRAY BTL INTRANASAL SCH (09:00)
[2021-11-04] MEDS ORDERED: NF:Liraglutide (NF) 18 MG/3 ML SUBCUT SCH (09:00)
[2021-11-04] MEDS ORDERED: FLUTICAS/UMECLI/VILANT 200-62.5-25 MDI (NF) INH SCH (09:00)
[2021-11-04] MEDS ORDERED: Cholecalciferol (VIT D3) 1,000 unit TAB PO SCH (09:00)
[2021-11-04] MEDS: Enoxaparin 40 MG/0.4 ML SYR SUBCUT SCH (10:26)
[2021-11-04] MEDS: OLOPATADINE 0.1% BOTH EYES SCH (12:19)
[2021-11-04 17:50] VITALS: BP 150/88
== END 2021-11-04 16:21 | disposition home or self-care (01) ==
LOC: EDHOLD 09:04 → ED 09:04 → SUATTDRO 11:35 → EDHOLD 14:36 → MEDTELE 15:58
PROVIDERS: ADMIT Hospitalist; ATTEND Internal Medicine

== ENCOUNTER 2022-01-01 00:44 | Inpatient (IN) ==
[2022-01-01 02:39] LABS: ABS Eosinophils 0.1 10^3/ul (0-0.6); ABS Lymphocytes 1.6 10^3/ul (1.0-4.8); ABS Monocytes 0.7 10^3/ul (0-0.8); ABS Neutrophils 6.7 10^3/ul (1.5-7.7); Eosinophil % 1.3 %; Hematocrit 35 % (35-47); Hemoglobin 11.4 g/dL (12.0-16.0); Mean Corpuscular HGB Conc 33 g/dL (31-36); Mean Corpuscular Hemoglobin 30 pg (27-31); Mean Corpuscular Volume 92 fL (80-97); Mean Platelet Volume 8.1 fL (7.4-10.4); Platelet Count 276 10^3/uL (150-450); Red Blood Count 3.81 10^6 /uL (3.70-4.87); Red Cell Distribution Width 16 % (10-15); White Blood Count 9.1 10^3/uL (3.5-10.8)
[2022-01-01] MEDS ORDERED: NS 0.9% 1000 ml BAG 1,000 ML IV ONE (03:17)
[2022-01-01 03:22] LABS: Troponin I 0.03 ng/mL (<0.03)
[2022-01-01 03:31] LABS: Anion Gap 8 mmol/L (2-11); CO2 Carbon Dioxide 28 mmol/L (22-32); Calcium 9.2 mg/dL (8.6-10.3); Chloride 108 mmol/L (101-111); Sodium 144 mmol/L (135-145)
[2022-01-01 03:37] LABS: ALT 19 U/L (7-52); AST 17 U/L (13-39); Albumin/Globulin Ratio 1.3 (1-3); Alkaline Phosphatase 79 U/L (35-149); Blood Urea Nitrogen 23 mg/dL (6-24); Glucose 119 mg/dL (70-100); eGFR CKD-EPI 39.6 (>60)
[2022-01-01 06:38] LABS: Urine Appearance Cloudy; Urine Bilirubin Negative (Negative); Urine Blood Negative (Negative); Urine Color Yellow; Urine Glucose Negative (Negative); Urine Ketones Negative (Negative); Urine Nitrite Positive (Negative); Urine Protein 1+(30 mg/dL) (Negative); Urine Specific Gravity 1.012 (1.002-1.030); Urine Urobilinogen Negative (Negative)
[2022-01-01 06:59] LABS: Urine Amorphous Crystals Present (Absent); Urine Bacteria 1+ (Absent); Urine Red Blood Cell Absent (Absent); Urine White Blood Cell 3+(>20/hpf) (Absent)
[2022-01-01] MEDS ORDERED: cefTRIAXone 1 gm/50 mL NS BAG 1 GM/50 ML BAG IV ONE (07:30)
[2022-01-01] MEDS: NS 0.9% 1000 ml BAG 1,000 ML IV ONE ×2 (07:42→10:23)
[2022-01-01] MEDS: Albuterol HFA INHALER 8 gm MDI INH PRN ×2 (12:28→21:48)
[2022-01-01] MEDS ORDERED: Albuterol/Ipratropium NEB.SOL (2.5/0.5 MG) 3 ML NEB.SOLN INH PRN (15:00)
[2022-01-01] MEDS: Fluticasone NASAL SPRAY 50MCG 16 gm SPRAY BTL INTRANASAL SCH ×2 (15:34→15:38)
[2022-01-01] MEDS: CMCS: Olopatadine 0.1% OPHTH (NF) 1 DROP BTL BOTH EYES SCH ×3 (15:34→21:24)
[2022-01-01] MEDS: Heparin 5000 UNITS/ML 1 mL VIAL SUBCUT SCH ×2 (15:39→21:25)
[2022-01-01] MEDS: CMCS: FLUTICAS/UMECLI/VILANT 200-62.5-25 MDI (NF) INH SCH (17:40)
[2022-01-02] MEDS: CMCS: FLUTICAS/UMECLI/VILANT 200-62.5-25 MDI (NF) INH SCH (07:09)
[2022-01-02] MEDS: Heparin 5000 UNITS/ML 1 mL VIAL SUBCUT SCH (07:43)
[2022-01-02 07:56] LABS: ABS Eosinophils 0.2 10^3/ul (0-0.6); ABS Lymphocytes 2.1 10^3/ul (1.0-4.8); ABS Monocytes 0.5 10^3/ul (0-0.8); ABS Neutrophils 3.2 10^3/ul (1.5-7.7); Eosinophil % 3.5 %; Hematocrit 35 % (35-47); Hemoglobin 11.7 g/dL (12.0-16.0); Lymphocyte % 34.4 %; Mean Corpuscular HGB Conc 33 g/dL (31-36); Mean Corpuscular Hemoglobin 30 pg (27-31); Mean Corpuscular Volume 92 fL (80-97); Mean Platelet Volume 8.6 fL (7.4-10.4); Platelet Count 278 10^3/uL (150-450); Red Blood Count 3.83 10^6 /uL (3.70-4.87); Red Cell Distribution Width 16 % (10-15)
[2022-01-02] MEDS ORDERED: cefTRIAXone 1 gm/50 mL NS BAG 1 GM/50 ML BAG IVPB SCH (08:00)
[2022-01-02 08:16] LABS: Calcium 9.1 mg/dL (8.6-10.3); Potassium 3.5 mmol/L (3.5-5.0); eGFR CKD-EPI 54.9 (>60)
[2022-01-02] MEDS ORDERED: DULoxetine DR 30 mg CAP PO SCH (09:00)
[2022-01-02] MEDS ORDERED: Lidocaine PATCH 5% PATCH TRANSDERM SCH (09:00)
[2022-01-02] MEDS: Fluticasone NASAL SPRAY 50MCG 16 gm SPRAY BTL INTRANASAL SCH (11:17)
[2022-01-02] MEDS: CMCS: Olopatadine 0.1% OPHTH (NF) 1 DROP BTL BOTH EYES SCH (11:18)
[2022-01-02 11:35] VITALS: BP 159/96
[2022-01-02] MEDS ORDERED: Lidocaine Patch REMOVE NOTE PATCH OFF SCH (21:00)
== END 2022-01-02 14:30 | disposition home or self-care (01) | DRG 690 ==
LOC: ED 00:44 → EDHOLD 08:30 → MED 15:22
PROVIDERS: ADMIT Internal Medicine; ATTEND Internal Medicine

== ENCOUNTER 2023-04-04 12:38 | Inpatient (IN) ==
[2023-04-04 14:30] LABS: ABS Lymphocytes 0.5 10^3/uL (1.0-4.8); ABS Monocytes 0.7 10^3/uL (0.0-0.9); ABS Neutrophils 8.6 10^3/uL (1.5-7.6); ABS Nucleated RBC 0.01 10^3/ul; Eosinophil % 0.1 %; Hematocrit 47.6 % (35-45); Hemoglobin 15.9 g/dL (11.5-14.3); Lymphocyte % 5.6 %; Mean Corpuscular Hemoglobin 30.7 pg (27-33); Mean Corpuscular Hgb Conc 33.5 g/dL (31-36); Mean Corpuscular Volume 91.5 fL (80-97); Mean Platelet Volume 8.2 fL (7.5-11.2); Nucleated Red Blood Cells % 0.1 /100 WBC (0.0-0.4); Platelet Count 289 10^3/uL (150-450); Red Cell Distribution Width 14.6 % (12-17); White Blood Count 9.8 10^3/uL (3.8-11.8)
[2023-04-04 14:52] LABS: High Sens Troponin Baseline 10 pg/mL (<15)
[2023-04-04 15:00] LABS: TSH Ultra Thyroid Stim Horm 0.52 mcIU/mL (0.34-5.60)
[2023-04-04 15:04] LABS: Albumin 4.8 g/dL (3.2-5.2); Albumin/Globulin Ratio 1.4 (1-3); Alkaline Phosphatase 159 U/L (35-149); Blood Urea Nitrogen 9 mg/dL (6-24); CO2 Carbon Dioxide 17 mmol/L (22-32); Chloride 106 mmol/L (101-111); Creatinine, Serum 1.13 mg/dL (0.51-0.95); Globulin 3.5 g/dL (2-4); Glucose 61 mg/dL (70-100); Sodium 140 mmol/L (135-145); Total Protein 8.3 g/dL (6.4-8.9)
[2023-04-04 15:30] LABS: ALT 1288 U/L (7-52)
[2023-04-04 15:43] LABS: Anion Gap 17 mmol/L (2-16)
[2023-04-04 15:46] LABS: AST 1955 U/L (13-39); Potassium 4.6 mmol/L (3.5-5.0)
[2023-04-04 16:19] LABS: High Sensitivity Troponin 1 Hr 10 pg/mL (<15)
[2023-04-04] MEDS ORDERED: Lactated Ringers 1000 ml BAG 1,000 ML IV ONE ×2 (17:02→20:51)
[2023-04-04 17:07] LABS: Acetaminophen < 15 mcg/mL; Salicylate < 2.50 mg/dL (<30)
[2023-04-04] MEDS ORDERED: Iodixanol (CONTRAST) 320 MG/ML 100 ML SDV IV ONE (17:23)
[2023-04-04 19:11] LABS: Hepatitis B Surface Antigen Nonreactive (Nonreactive)
[2023-04-04 19:16] LABS: Hepatitis A Ab IgM Negative (Negative); Hepatitis B Core IgM Nonreactive (Nonreactive)
[2023-04-04 19:28] LABS: Hepatitis C Antibody Negative (Negative)
[2023-04-04 20:03] LABS: INR 2.69 (0.88-1.18)
[2023-04-04 21:32] LABS: Albumin 4.1 g/dL (3.2-5.2); Albumin/Globulin Ratio 1.3 (1-3); Calcium 9.5 mg/dL (8.6-10.3); Creatinine, Serum 1.29 mg/dL (0.51-0.95); Globulin 3.1 g/dL (2-4); Potassium 4.8 mmol/L (3.5-5.0); Total Bilirubin 3.5 mg/dL (0.2-1.0); Total Protein 7.2 g/dL (6.4-8.9); eGFR CKD-EPI 46.1 (>60)
[2023-04-04 21:49] LABS: Urine Appearance Clear; Urine Bilirubin Negative (Negative); Urine Blood 1+ (Negative); Urine Color Amber; Urine Glucose Negative (Negative); Urine Ketones Negative (Negative); Urine Nitrite Negative (Negative); Urine Protein 2+(100 mg/dL) (Negative); Urine Specific Gravity 1.053 (1.002-1.030); Urine Urobilinogen Negative (Negative)
[2023-04-04] MEDS ORDERED: Acetylcysteine IV 15,000 MG in D5W 250 ml BAG 200 ML IV ONE (22:00)
[2023-04-04 22:04] LABS: Urine Bacteria 1+ (Absent); Urine Red Blood Cell 2+(6-10/hpf) (Absent); Urine Squamous Epithelial Cell Present (Absent); Urine White Blood Cell 2+(11-20/hpf) (Absent)
[2023-04-04] MEDS ORDERED: Dextrose 50% Syringe 50 ml 25 GM/50 ML SYRINGE IV PUSH ONE (22:04)
[2023-04-04] MEDS ORDERED: D5W 1/2 NS KCl 20 meq 1000 ml 1,000 ML IV SCH (23:00)
[2023-04-04] MEDS ORDERED: Acetylcysteine IV 5,000 MG in D5W 500 ml BAG 500 ML IV ONE (23:00)
[2023-04-05] MEDS ORDERED: Ondansetron 4 mg VIAL 2 MG/ML 2 ml VIAL IV PRN (00:20)
[2023-04-05] MEDS ORDERED: Albuterol HFA INHALER 8 gm MDI INH PRN (01:51)
[2023-04-05] MEDS ORDERED: Acetylcysteine IV 10,000 MG in D5W 1000 ml BAG 1,000 ML IV ONE (03:00)
[2023-04-05 03:26] LABS: PCO2 Arterial 25 mmHg (35-45); PO2 Arterial 94 mmHg (80-100)
[2023-04-05 03:27] LABS: ABS Lymphocytes 0.7 10^3/uL (1.0-4.8); ABS Monocytes 0.6 10^3/uL (0.0-0.9); ABS Neutrophils 12.5 10^3/uL (1.5-7.6); ABS Nucleated RBC 0.02 10^3/ul; Hematocrit 41.1 % (35-45); Hemoglobin 13.6 g/dL (11.5-14.3); Mean Corpuscular Hemoglobin 30.2 pg (27-33); Mean Corpuscular Hgb Conc 33.1 g/dL (31-36); Mean Corpuscular Volume 91.2 fL (80-97); Nucleated Red Blood Cells % 0.2 /100 WBC (0.0-0.4); Platelet Count 267 10^3/uL (150-450); Red Cell Distribution Width 14.8 % (12-17); White Blood Count 13.8 10^3/uL (3.8-11.8)
[2023-04-05 03:47] LABS: Albumin 3.8 g/dL (3.2-5.2); Albumin/Globulin Ratio 1.3 (1-3); Calcium 9.2 mg/dL (8.6-10.3); Creatinine, Serum 1.23 mg/dL (0.51-0.95); Globulin 2.9 g/dL (2-4); Potassium 4.3 mmol/L (3.5-5.0); Total Bilirubin 3.5 mg/dL (0.2-1.0); Total Protein 6.7 g/dL (6.4-8.9); eGFR CKD-EPI 48.8 (>60)
[2023-04-05 03:50] LABS: INR 3.45 (0.88-1.18)
[2023-04-05 04:20] LABS: HIV 4th Generation Nonreactive (Nonreactive)
[2023-04-05 06:12] LABS: ABS Lymphocytes 0.8 10^3/uL (1.0-4.8); ABS Monocytes 0.9 10^3/uL (0.0-0.9); ABS Neutrophils 13.4 10^3/uL (1.5-7.6); ABS Nucleated RBC 0.02 10^3/ul; Eosinophil % 0.1 %; Hematocrit 39.2 % (35-45); Hemoglobin 13.3 g/dL (11.5-14.3); Lymphocyte % 5.4 %; Mean Corpuscular Hemoglobin 30.8 pg (27-33); Mean Corpuscular Volume 90.7 fL (80-97); Mean Platelet Volume 8.3 fL (7.5-11.2); Nucleated Red Blood Cells % 0.1 /100 WBC (0.0-0.4); Platelet Count 272 10^3/uL (150-450); Red Blood Count 4.32 10^6/uL (3.63-4.92); Red Cell Distribution Width 14.9 % (12-17); White Blood Count 15.2 10^3/uL (3.8-11.8)
[2023-04-05 06:16] LABS: INR 3.94 (0.88-1.18)
[2023-04-05 06:48] LABS: Albumin 3.6 g/dL (3.2-5.2); Albumin/Globulin Ratio 1.3 (1-3); Alkaline Phosphatase 156 U/L (35-149); Blood Urea Nitrogen 15 mg/dL (6-24); CO2 Carbon Dioxide 19 mmol/L (22-32); Calcium 8.9 mg/dL (8.6-10.3); Chloride 103 mmol/L (101-111); Creatinine, Serum 1.24 mg/dL (0.51-0.95); Globulin 2.7 g/dL (2-4); Glucose 161 mg/dL (70-100); Sodium 137 mmol/L (135-145); Total Protein 6.3 g/dL (6.4-8.9); eGFR CKD-EPI 48.3 (>60)
[2023-04-05 07:06] LABS: ALT 4772 U/L (7-52)
[2023-04-05 07:10] LABS: Anion Gap 15 mmol/L (2-16)
[2023-04-05] MEDS ORDERED: Lactulose 30 ml UDC PO ONE ×2 (07:25→09:41)
[2023-04-05] MEDS: CMCS: FLUTICAS/UMECLI/VILANT 200-62.5-25 MDI (NF) INH SCH (08:38)
[2023-04-05] MEDS ORDERED: Piperacillin/Tazobac ADVAN 3.375 GM in NS 0.9% 100 ml BAG 100 ML IV ONE (09:00)
[2023-04-05] MEDS ORDERED: Zosyn per Pharmacy NOTE FOLLOW UP SCH (09:00)
[2023-04-05 09:08] LABS: Albumin 3.5 g/dL (3.2-5.2); Albumin/Globulin Ratio 1.3 (1-3); Creatinine, Serum 1.26 mg/dL (0.51-0.95); Globulin 2.6 g/dL (2-4); Phosphorus 1.4 mg/dL (2.5-5.0); Total Bilirubin 3.4 mg/dL (0.2-1.0); Total Protein 6.1 g/dL (6.4-8.9); eGFR CKD-EPI 47.4 (>60)
[2023-04-05] MEDS ORDERED: NS 0.9% 1000 ml BAG 1,000 ML IV SCH ×2 (09:45→11:45)
[2023-04-05] MEDS ORDERED: NS 0.9% 1000 ml BAG 1,000 ML IV ONE (09:45)
[2023-04-05 09:50] LABS: Magnesium 1.8 mg/dL (1.9-2.7)
[2023-04-05] MEDS ORDERED: Phytonadione Oral Solution 5 MG/25 ML UDC PO ONE (10:00)
[2023-04-05] MEDS ORDERED: Potassium Acid Phos 500 mg TAB PO ONE ×2 (10:00→22:00)
[2023-04-05] MEDS: Pantoprazole VIAL 40 MG VIAL IV SCH (10:13)
[2023-04-05 11:06] LABS: PCO2 Arterial 27 mmHg (35-45); PO2 Arterial 88 mmHg (80-100)
[2023-04-05] MEDS ORDERED: Dextrose 50% Syringe 50 ml 25 GM/50 ML SYRINGE IV PUSH PRN (11:41)
[2023-04-05] MEDS ORDERED: Magnesium Sulfate 2 gm BAG 2 GM/50 ML BAG IVPB ONE (11:46)
[2023-04-05] MEDS ORDERED: Lactulose 30 ml UDC PO PRN (11:46)
[2023-04-05] MEDS ORDERED: Metoprolol Tartrate 5 mg VIAL 5 ml VIAL (1 mg/ml) IV ONE (13:40)
[2023-04-05] MEDS: ZOSYN 3.375 GM Q8H per EXTENDED INFUSION IV SCH ×2 (14:18→22:02)
[2023-04-05] MEDS ORDERED: Morphine 2 MG/ML SYRINGE IV ONE (17:47)
[2023-04-05] MEDS: D5NS 0.9% 1000 ml BAG 1,000 ML IV SCH (20:07)
[2023-04-05] MEDS ORDERED: RiFAXimin SUSP ORALSYR 20mg/mL PO SCH (21:00)
[2023-04-06 04:33] LABS: ABS Lymphocytes 1.3 10^3/uL (1.0-4.8); ABS Monocytes 0.6 10^3/uL (0.0-0.9); ABS Neutrophils 8.5 10^3/uL (1.5-7.6); ABS Nucleated RBC 0.03 10^3/ul; Eosinophil % 0.3 %; Hematocrit 36.8 % (35-45); Hemoglobin 12.5 g/dL (11.5-14.3); Lymphocyte % 12.8 %; Mean Corpuscular Hemoglobin 30.6 pg (27-33); Mean Corpuscular Volume 89.8 fL (80-97); Mean Platelet Volume 7.8 fL (7.5-11.2); Nucleated Red Blood Cells % 0.3 /100 WBC (0.0-0.4); Platelet Count 234 10^3/uL (150-450); Red Cell Distribution Width 15.2 % (12-17); White Blood Count 10.5 10^3/uL (3.8-11.8)
[2023-04-06 04:39] LABS: INR 3.46 (0.88-1.18)
[2023-04-06 04:52] LABS: Albumin 2.9 g/dL (3.2-5.2); Albumin/Globulin Ratio 1.3 (1-3); Calcium 8.4 mg/dL (8.6-10.3); Creatinine, Serum 1.58 mg/dL (0.51-0.95); Globulin 2.2 g/dL (2-4); Phosphorus 1.5 mg/dL (2.5-5.0); Potassium 3.3 mmol/L (3.5-5.0); Total Protein 5.1 g/dL (6.4-8.9); eGFR CKD-EPI 36.1 (>60)
[2023-04-06] MEDS: ZOSYN 3.375 GM Q8H per EXTENDED INFUSION IV SCH ×3 (05:09→21:09)
[2023-04-06] MEDS: D5NS 0.9% 1000 ml BAG 1,000 ML IV SCH (05:43)
[2023-04-06] MEDS ORDERED: Potassium Phosphate IV 15 MMOL in NS 0.9% 250 ml 250 ML IVPB ONE (06:30)
[2023-04-06] MEDS: CMCS: FLUTICAS/UMECLI/VILANT 200-62.5-25 MDI (NF) INH SCH (07:33)
[2023-04-06] MEDS ORDERED: Lactulose 30 ml UDC PO SCH (09:00)
[2023-04-06] MEDS: Pantoprazole VIAL 40 MG VIAL IV SCH (09:24)
[2023-04-06] MEDS ORDERED: Phytonadione Oral Solution 5 MG/25 ML UDC NG TUBE ONE (09:27)
[2023-04-06 13:09] LABS: Urine Alcohol Negative mg/dL (Cutoff: 10); Urine Barbiturates Negative; Urine Benzodiazepines Presumptive Positive ng/mL; Urine Cocaine Negative; Urine Methadone Negative (Negative); Urine Opiates Negative (Negative); Urine Phencyclidine Negative ng/mL (Cutoff: 25); Urine Tetrahydrocannabinol Presumptive Positive ng/mL (Cutoff: 50)
[2023-04-06] MEDS: D5LR 1000 ml BAG 1,000 ML IV SCH ×2 (14:34→23:58)
[2023-04-06 15:26] LABS: Venous Bicarbonate HCO3 22.8 mmol/L (24-28)
[2023-04-06] MEDS: Heparin 5000 UNITS/ML 1 mL VIAL SUBCUT SCH (20:42)
[2023-04-07] MEDS: hydrALAZINE 20 mg/ml 1 ML Vial IV IV SLOW PU PRN ×3 (03:19→21:06)
[2023-04-07 04:18] LABS: ABS Eosinophils 0.1 10^3/uL (0.0-0.5); ABS Lymphocytes 1.4 10^3/uL (1.0-4.8); ABS Monocytes 0.4 10^3/uL (0.0-0.9); ABS Neutrophils 7.7 10^3/uL (1.5-7.6); ABS Nucleated RBC 0.01 10^3/ul; Hematocrit 36.9 % (35-45); Hemoglobin 12.5 g/dL (11.5-14.3); Lymphocyte % 14.2 %; Mean Corpuscular Hemoglobin 30.8 pg (27-33); Mean Corpuscular Volume 90.6 fL (80-97); Mean Platelet Volume 7.6 fL (7.5-11.2); Nucleated Red Blood Cells % 0.1 /100 WBC (0.0-0.4); Platelet Count 240 10^3/uL (150-450); Red Blood Count 4.07 10^6/uL (3.63-4.92); Red Cell Distribution Width 15.9 % (12-17); White Blood Count 9.6 10^3/uL (3.8-11.8)
[2023-04-07 04:28] LABS: INR 2.36 (0.88-1.18)
[2023-04-07 04:39] LABS: Albumin 2.9 g/dL (3.2-5.2); Albumin/Globulin Ratio 1.2 (1-3); Calcium 8.3 mg/dL (8.6-10.3); Creatinine, Serum 1.27 mg/dL (0.51-0.95); Globulin 2.4 g/dL (2-4); Magnesium 1.8 mg/dL (1.9-2.7); Phosphorus 1.2 mg/dL (2.5-5.0); Potassium 3.2 mmol/L (3.5-5.0); Total Bilirubin 3.4 mg/dL (0.2-1.0); Total Protein 5.3 g/dL (6.4-8.9); eGFR CKD-EPI 46.9 (>60)
[2023-04-07] MEDS: ZOSYN 3.375 GM Q8H per EXTENDED INFUSION IV SCH (05:25)
[2023-04-07] MEDS: CMCS: FLUTICAS/UMECLI/VILANT 200-62.5-25 MDI (NF) INH SCH ×2 (07:32→09:38)
[2023-04-07] MEDS ORDERED: Potassium Phosphate IV 15 MMOL in NS 0.9% 250 ml 250 ML IVPB ONE ×2 (08:25→19:15)
[2023-04-07] MEDS ORDERED: Magnesium Sulfate 2 gm BAG 2 GM/50 ML BAG IVPB ONE (08:25)
[2023-04-07] MEDS: Pantoprazole VIAL 40 MG VIAL IV SCH (09:17)
[2023-04-07] MEDS: Heparin 5000 UNITS/ML 1 mL VIAL SUBCUT SCH ×2 (09:18→21:07)
[2023-04-07 09:24] LABS: PCO2 Arterial 40 mmHg (35-45)
[2023-04-07 09:28] LABS: PO2 Arterial < 38 mmHg (80-100)
[2023-04-07] MEDS: D5LR 1000 ml BAG 1,000 ML IV SCH (11:50)
[2023-04-07] MEDS: cefTRIAXone 1 gm/50 mL D5W 1 GM/50 ML BAG IV SCH (14:09)
[2023-04-07 17:11] LABS: Calcium 8.3 mg/dL (8.6-10.3); Creatinine, Serum 1.06 mg/dL (0.51-0.95); Magnesium 2.1 mg/dL (1.9-2.7); Phosphorus 2.1 mg/dL (2.5-5.0); Potassium 3.4 mmol/L (3.5-5.0); eGFR CKD-EPI 58.3 (>60)
[2023-04-07 23:49] LABS: HSV 1 PCR, B Negative (Negative); HSV 2 PCR, B Negative (Negative)
[2023-04-08 04:31] LABS: Mean Corpuscular Hemoglobin 30.5 pg (27-33); Mean Corpuscular Hgb Conc 34.3 g/dL (31-36); Mean Corpuscular Volume 88.9 fL (80-97); Mean Platelet Volume 7.8 fL (7.5-11.2); Platelet Count 250 10^3/uL (150-450); Red Blood Count 3.94 10^6/uL (3.63-4.92); Red Cell Distribution Width 15.3 % (12-17); White Blood Count 9.5 10^3/uL (3.8-11.8)
[2023-04-08 04:37] LABS: INR 2.05 (0.88-1.18)
[2023-04-08 05:07] LABS: ABS Eosinophils 0.2 10^3/uL (0.0-0.5); ABS Lymphocytes 1.6 10^3/uL (1.0-4.8); ABS Neutrophils 6.7 10^3/uL (1.5-7.6); ABS Nucleated RBC 0.01 10^3/ul; Eosinophil % 1.9 %; Lymphocyte % 16.9 %; Nucleated Red Blood Cells % 0.1 /100 WBC (0.0-0.4)
[2023-04-08 05:08] LABS: Albumin 2.9 g/dL (3.2-5.2); Albumin/Globulin Ratio 1.2 (1-3); Calcium 8.3 mg/dL (8.6-10.3); Creatinine, Serum 1.03 mg/dL (0.51-0.95); Globulin 2.4 g/dL (2-4); Magnesium 1.9 mg/dL (1.9-2.7); Phosphorus 2.5 mg/dL (2.5-5.0); Potassium 3.5 mmol/L (3.5-5.0); Total Bilirubin 4.1 mg/dL (0.2-1.0); Total Protein 5.3 g/dL (6.4-8.9); eGFR CKD-EPI 60.3 (>60)
[2023-04-08] MEDS ORDERED: Potassium Phosphate IV 15 MMOL in NS 0.9% 250 ml 250 ML IVPB ONE (07:25)
[2023-04-08] MEDS ORDERED: Magnesium Sulfate 2 gm BAG 2 GM/50 ML BAG IVPB ONE (07:25)
[2023-04-08] MEDS: D5LR 1000 ml BAG 1,000 ML IV SCH ×2 (08:24→15:13)
[2023-04-08] MEDS: Pantoprazole VIAL 40 MG VIAL IV SCH (08:37)
[2023-04-08] MEDS: Heparin 5000 UNITS/ML 1 mL VIAL SUBCUT SCH ×2 (08:37→20:10)
[2023-04-08] MEDS: KCL 20 MEQ/100 ML IVPREMIX 20 MEQ/100 ML BAG IV SCH ×2 (08:39→10:35)
[2023-04-08] MEDS ORDERED: Iohexol 350 (CONTRAST) 500 ML MDV IV ONE (09:35)
[2023-04-08] MEDS: CMCS: FLUTICAS/UMECLI/VILANT 200-62.5-25 MDI (NF) INH SCH (11:35)
[2023-04-08 13:02] LABS: Carboxy-THC Interpretation Positive.; Delta-8 Carboxy-THC (LC-MS/MS) Not Detected ng/mL (Cutoff: 5); Delta-9 Carboxy-THC (LC-MS/MS) 12 ng/mL (Cutoff: 5)
[2023-04-08] MEDS: cefTRIAXone 1 gm/50 mL D5W 1 GM/50 ML BAG IV SCH (13:35)
[2023-04-08] MEDS: Lactulose 30 ml UDC PO SCH ×2 (17:22→20:10)
[2023-04-08] MEDS ORDERED: Albuterol/Ipratropium NEB.SOL (2.5/0.5 MG) 3 ML NEB.SOLN INH PRN (17:33)
[2023-04-08] MEDS ORDERED: Albuterol 2.5mg/3 ml (0.083%) NEB.SOLN INH ONE (17:38)
[2023-04-08] MEDS: hydrALAZINE 20 mg/ml 1 ML Vial IV IV SLOW PU PRN (23:19)
[2023-04-09] MEDS: D5LR 1000 ml BAG 1,000 ML IV SCH (00:34)
[2023-04-09 04:23] LABS: Hematocrit 35.9 % (35-45); Hemoglobin 12.1 g/dL (11.5-14.3); Mean Corpuscular Hemoglobin 30.7 pg (27-33); Mean Corpuscular Hgb Conc 33.8 g/dL (31-36); Mean Corpuscular Volume 90.9 fL (80-97); Mean Platelet Volume 7.4 fL (7.5-11.2); Platelet Count 252 10^3/uL (150-450); Red Blood Count 3.95 10^6/uL (3.63-4.92); Red Cell Distribution Width 15.8 % (12-17); White Blood Count 10.2 10^3/uL (3.8-11.8)
[2023-04-09 04:32] LABS: INR 1.69 (0.88-1.18)
[2023-04-09 05:04] LABS: Albumin/Globulin Ratio 1.3 (1-3); Calcium 8.3 mg/dL (8.6-10.3); Creatinine, Serum 0.86 mg/dL (0.51-0.95); Globulin 2.4 g/dL (2-4); Phosphorus 1.6 mg/dL (2.5-5.0); Potassium 3.5 mmol/L (3.5-5.0); Total Bilirubin 3.1 mg/dL (0.2-1.0); Total Protein 5.4 g/dL (6.4-8.9); eGFR CKD-EPI 74.9 (>60)
[2023-04-09 05:29] LABS: ABS Eosinophils 0.7 10^3/uL (0.0-0.5); ABS Lymphocytes 1.9 10^3/uL (1.0-4.8); ABS Monocytes 1.7 10^3/uL (0.0-0.9); ABS Neutrophils 5.9 10^3/uL (1.5-7.6); ABS Nucleated RBC 0.02 10^3/ul; Eosinophil % 6.9 %; Nucleated Red Blood Cells % 0.2 /100 WBC (0.0-0.4)
[2023-04-09] MEDS: Heparin 5000 UNITS/ML 1 mL VIAL SUBCUT SCH ×2 (08:48→21:14)
[2023-04-09] MEDS: Pantoprazole VIAL 40 MG VIAL IV SCH (08:48)
[2023-04-09] MEDS ORDERED: Potassium Phosphate IV 15 MMOL in NS 0.9% 250 ml 250 ML IVPB ONE (09:00)
[2023-04-09] MEDS: CMCS: FLUTICAS/UMECLI/VILANT 200-62.5-25 MDI (NF) INH SCH (09:33)
[2023-04-09] MEDS: Lactated Ringers 1000 ml BAG 1,000 ML IV SCH (12:39)
[2023-04-09] MEDS: cefTRIAXone 1 gm/50 mL D5W 1 GM/50 ML BAG IV SCH (13:22)
[2023-04-09] MEDS: hydrALAZINE 20 mg/ml 1 ML Vial IV IV SLOW PU PRN (14:18)
[2023-04-10] MEDS: Lactated Ringers 1000 ml BAG 1,000 ML IV SCH ×2 (02:12→15:49)
[2023-04-10 04:43] LABS: Hematocrit 33.7 % (35-45); Hemoglobin 11.9 g/dL (11.5-14.3); Mean Corpuscular Hemoglobin 31.6 pg (27-33); Mean Corpuscular Hgb Conc 35.2 g/dL (31-36); Mean Corpuscular Volume 89.7 fL (80-97); Mean Platelet Volume 7.9 fL (7.5-11.2); Platelet Count 226 10^3/uL (150-450); Red Blood Count 3.76 10^6/uL (3.63-4.92); Red Cell Distribution Width 16.1 % (12-17); White Blood Count 11.6 10^3/uL (3.8-11.8)
[2023-04-10 04:53] LABS: INR 1.53 (0.88-1.18)
[2023-04-10 05:14] LABS: ABS Basophils 0.1 10^3/uL (0.0-0.1); ABS Eosinophils 0.9 10^3/uL (0.0-0.5); ABS Lymphocytes 2.9 10^3/uL (1.0-4.8); ABS Monocytes 1.8 10^3/uL (0.0-0.9); ABS Nucleated RBC 0.03 10^3/ul; Eosinophil % 7.5 %; Nucleated Red Blood Cells % 0.3 /100 WBC (0.0-0.4); RBC Morphology Normal (Normal)
[2023-04-10 05:18] LABS: Albumin 2.7 g/dL (3.2-5.2); Calcium 7.9 mg/dL (8.6-10.3); Creatinine, Serum 0.9 mg/dL (0.51-0.95); Globulin 2.6 g/dL (2-4); Magnesium 1.8 mg/dL (1.9-2.7); Phosphorus 3.4 mg/dL (2.5-5.0); Potassium 3.5 mmol/L (3.5-5.0); Total Protein 5.3 g/dL (6.4-8.9); eGFR CKD-EPI 70.9 (>60)
[2023-04-10 05:47] LABS: 7-amnioflunitrazepam LC-MS/MS Negative ng/mL (Cutoff: 10); Alpha OH Triazolam by LC-MS/MS Negative ng/mL (Cutoff: 10); Alpha-Hydroxyalprazolam LC-MS 811 ng/mL (Cutoff: 10); Alpha-OH Midazolam LC-MS/MS Negative ng/mL (Cutoff: 10); Alprazolam LC-MS/MS 277 ng/mL (Cutoff: 10); Benzodiazepines Interpretation Positive.; Chlordiazepoxide by LC-MS/MS Negative ng/mL (Cutoff: 10); Clobazam LC-MS/MS Negative ng/mL (Cutoff: 10); Lorazepam by LC-MS/MS Negative ng/mL (Cutoff: 10); Oxazepam by LC-MS/MS Negative ng/mL (Cutoff: 10); Prazepam by LC-MS/MS Negative ng/mL (Cutoff: 10); Temazepam by LC-MS/MS Negative ng/mL (Cutoff: 10); Triazolam by LC-MS/MS Negative ng/mL (Cutoff: 10); Zolpidem Phenyl-4-Carboxylic Negative ng/mL (Cutoff: 10); Zolpidem by LC-MS/MS Negative ng/mL (Cutoff: 10)
[2023-04-10] MEDS: CMCS: FLUTICAS/UMECLI/VILANT 200-62.5-25 MDI (NF) INH SCH (07:37)
[2023-04-10] MEDS: Pantoprazole VIAL 40 MG VIAL IV SCH (08:31)
[2023-04-10] MEDS: Heparin 5000 UNITS/ML 1 mL VIAL SUBCUT SCH ×2 (08:31→21:15)
[2023-04-10] MEDS ORDERED: Lidocaine 1% MPF 5 ML VIAL INJ ONE (11:16)
[2023-04-10] MEDS: hydrALAZINE 20 mg/ml 1 ML Vial IV IV SLOW PU PRN (11:20)
[2023-04-10] MEDS: cefTRIAXone 1 gm/50 mL D5W 1 GM/50 ML BAG IV SCH (13:27)
[2023-04-10] MEDS ORDERED: hydrALAZINE 20 mg/ml 1 ML Vial IV IV SLOW PU PRN (15:56)
[2023-04-11] MEDS: Lactated Ringers 1000 ml BAG 1,000 ML IV SCH ×2 (03:20→16:56)
[2023-04-11 04:33] LABS: Hematocrit 34.4 % (35-45); Hemoglobin 11.6 g/dL (11.5-14.3); Mean Corpuscular Hemoglobin 30.4 pg (27-33); Mean Corpuscular Hgb Conc 33.8 g/dL (31-36); Platelet Count 204 10^3/uL (150-450); Red Blood Count 3.83 10^6/uL (3.63-4.92); Red Cell Distribution Width 16.4 % (12-17); White Blood Count 12.2 10^3/uL (3.8-11.8)
[2023-04-11 04:35] LABS: ABS Basophils 0.1 10^3/uL (0.0-0.1); ABS Eosinophils 0.6 10^3/uL (0.0-0.5); ABS Monocytes 1.9 10^3/uL (0.0-0.9); ABS Neutrophils 6.7 10^3/uL (1.5-7.6); ABS Nucleated RBC 0.01 10^3/ul; Eosinophil % 4.9 %; Lymphocyte % 24.6 %; Nucleated Red Blood Cells % 0.1 /100 WBC (0.0-0.4)
[2023-04-11 04:39] LABS: INR 1.38 (0.88-1.18)
[2023-04-11 05:21] LABS: Albumin 2.7 g/dL (3.2-5.2); Albumin/Globulin Ratio 0.9 (1-3); Creatinine, Serum 0.88 mg/dL (0.51-0.95); Magnesium 1.7 mg/dL (1.9-2.7); Phosphorus 3.1 mg/dL (2.5-5.0); Potassium 3.6 mmol/L (3.5-5.0); Total Bilirubin 1.8 mg/dL (0.2-1.0); Total Protein 5.7 g/dL (6.4-8.9); eGFR CKD-EPI 72.9 (>60)
[2023-04-11] MEDS ORDERED: Levothyroxine 100 MCG/5 ML VIAL IV SCH (06:00)
[2023-04-11] MEDS ORDERED: Magnesium Sulfate 2 gm BAG 2 GM/50 ML BAG IVPB ONE (07:14)
[2023-04-11] MEDS ORDERED: KCL 20 MEQ/100 ML IVPREMIX 20 MEQ/100 ML BAG IV ONE (07:18)
[2023-04-11] MEDS: Pantoprazole VIAL 40 MG VIAL IV SCH (07:37)
[2023-04-11] MEDS: Heparin 5000 UNITS/ML 1 mL VIAL SUBCUT SCH ×2 (07:37→22:10)
[2023-04-11] MEDS: CMCS: FLUTICAS/UMECLI/VILANT 200-62.5-25 MDI (NF) INH SCH (08:24)
[2023-04-11] MEDS: cefTRIAXone 1 gm/50 mL D5W 1 GM/50 ML BAG IV SCH (12:27)
[2023-04-11] MEDS ORDERED: Lactulose 30 ml UDC PO SCH (14:00)
[2023-04-12 05:31] LABS: Hematocrit 35.5 % (35-45); Hemoglobin 11.9 g/dL (11.5-14.3); Mean Corpuscular Hemoglobin 30.4 pg (27-33); Mean Corpuscular Hgb Conc 33.6 g/dL (31-36); Mean Corpuscular Volume 90.5 fL (80-97); Mean Platelet Volume 8.3 fL (7.5-11.2); Platelet Count 200 10^3/uL (150-450); Red Blood Count 3.92 10^6/uL (3.63-4.92); Red Cell Distribution Width 15.9 % (12-17); White Blood Count 10.5 10^3/uL (3.8-11.8)
[2023-04-12 05:54] LABS: ABS Eosinophils 0.5 10^3/uL (0.0-0.5); ABS Monocytes 1.5 10^3/uL (0.0-0.9); ABS Neutrophils 6.5 10^3/uL (1.5-7.6); ABS Nucleated RBC 0.01 10^3/ul; Eosinophil % 4.4 %; Lymphocyte % 19.4 %; Nucleated Red Blood Cells % 0.1 /100 WBC (0.0-0.4)
[2023-04-12 06:07] LABS: Albumin 2.7 g/dL (3.2-5.2); Albumin/Globulin Ratio 0.8 (1-3); Calcium 8.1 mg/dL (8.6-10.3); Creatinine, Serum 0.8 mg/dL (0.51-0.95); Direct Bilirubin 0.4 mg/dL (0.03-0.18); Globulin 3.3 g/dL (2-4); Indirect Bilirubin 1.1 mg/dL (0.3-1.0); Magnesium 1.9 mg/dL (1.9-2.7); Potassium 3.8 mmol/L (3.5-5.0); Total Bilirubin 1.5 mg/dL (0.2-1.0); eGFR CKD-EPI 81.7 (>60)
[2023-04-12] MEDS: Levothyroxine 100 MCG/5 ML VIAL IV SCH (06:46)
[2023-04-12] MEDS: Lactated Ringers 1000 ml BAG 1,000 ML IV SCH ×2 (06:47→15:03)
[2023-04-12] MEDS: CMCS: FLUTICAS/UMECLI/VILANT 200-62.5-25 MDI (NF) INH SCH (07:20)
[2023-04-12] MEDS: Heparin 5000 UNITS/ML 1 mL VIAL SUBCUT SCH ×2 (10:06→20:33)
[2023-04-12] MEDS: Pantoprazole VIAL 40 MG VIAL IV SCH (10:06)
[2023-04-12] MEDS: cefTRIAXone 1 gm/50 mL D5W 1 GM/50 ML BAG IV SCH (15:04)
[2023-04-13 06:28] LABS: ABS Basophils 0.1 10^3/uL (0.0-0.1); ABS Eosinophils 0.5 10^3/uL (0.0-0.5); ABS Lymphocytes 2.6 10^3/uL (1.0-4.8); ABS Monocytes 1.3 10^3/uL (0.0-0.9); ABS Neutrophils 6.1 10^3/uL (1.5-7.6); ABS Nucleated RBC 0.02 10^3/ul; Eosinophil % 4.4 %; Hematocrit 37.2 % (35-45); Hemoglobin 12.6 g/dL (11.5-14.3); Lymphocyte % 24.7 %; Mean Corpuscular Hemoglobin 30.6 pg (27-33); Mean Corpuscular Hgb Conc 33.7 g/dL (31-36); Mean Corpuscular Volume 90.8 fL (80-97); Mean Platelet Volume 8.6 fL (7.5-11.2); Nucleated Red Blood Cells % 0.2 /100 WBC (0.0-0.4); Platelet Count 214 10^3/uL (150-450); Red Cell Distribution Width 16.7 % (12-17); White Blood Count 10.7 10^3/uL (3.8-11.8)
[2023-04-13 06:57] LABS: Calcium 8.7 mg/dL (8.6-10.3); Creatinine, Serum 0.88 mg/dL (0.51-0.95); Magnesium 1.7 mg/dL (1.9-2.7); Potassium 3.8 mmol/L (3.5-5.0); eGFR CKD-EPI 72.9 (>60)
[2023-04-13] MEDS ORDERED: Magnesium Sulfate 2 gm BAG 2 GM/50 ML BAG IVPB ONE (07:41)
[2023-04-13] MEDS: Lactated Ringers 1000 ml BAG 1,000 ML IV SCH (07:58)
[2023-04-13] MEDS: CMCS: FLUTICAS/UMECLI/VILANT 200-62.5-25 MDI (NF) INH SCH (08:20)
[2023-04-13] MEDS: Pantoprazole VIAL 40 MG VIAL IV SCH (10:00)
[2023-04-13] MEDS: Heparin 5000 UNITS/ML 1 mL VIAL SUBCUT SCH ×2 (10:01→20:43)
[2023-04-13] MEDS: Levothyroxine 100 MCG/5 ML VIAL IV SCH (10:01)
[2023-04-13] MEDS: cefTRIAXone 1 gm/50 mL D5W 1 GM/50 ML BAG IV SCH (13:33)
[2023-04-14 06:28] LABS: Albumin/Globulin Ratio 0.9 (1-3); Calcium 8.4 mg/dL (8.6-10.3); Creatinine, Serum 0.96 mg/dL (0.51-0.95); Globulin 3.4 g/dL (2-4); Magnesium 2.1 mg/dL (1.9-2.7); Potassium 3.7 mmol/L (3.5-5.0); Total Bilirubin 1.5 mg/dL (0.2-1.0); Total Protein 6.4 g/dL (6.4-8.9); eGFR CKD-EPI 65.7 (>60)
[2023-04-14] MEDS: CMCS: FLUTICAS/UMECLI/VILANT 200-62.5-25 MDI (NF) INH SCH (07:22)
[2023-04-14] MEDS: Pantoprazole VIAL 40 MG VIAL IV SCH (09:35)
[2023-04-14] MEDS: Heparin 5000 UNITS/ML 1 mL VIAL SUBCUT SCH (09:35)
[2023-04-14 17:19] VITALS: BP 144/81
== END 2023-04-14 17:33 | disposition home or self-care (01) | DRG 441 ==
LOC: ED 12:38 → EDHOLD 19:17 → SUATTDRO 04-05 00:20 → ICU 04-05 02:45 → MEDTELE 04-13 05:14
PROVIDERS: ADMIT Internal Medicine; ATTEND Internal Medicine

== ENCOUNTER 2023-04-25 17:53 | Observation (INO) ==
[2023-04-25] MEDS ORDERED: Lactated Ringers 1000 ml BAG 1,000 ML IV ONE ×2 (18:15→19:44)
[2023-04-25 19:02] LABS: ABS Eosinophils 0.1 10^3/uL (0.0-0.5); ABS Lymphocytes 2.5 10^3/uL (1.0-4.8); Eosinophil % 1.1 %; Hematocrit 34.6 % (35-45); Hemoglobin 11.6 g/dL (11.5-14.3); Lymphocyte % 28.8 %; Mean Corpuscular Hemoglobin 31.5 pg (27-33); Mean Corpuscular Hgb Conc 33.5 g/dL (31-36); Mean Corpuscular Volume 94.1 fL (80-97); Mean Platelet Volume 9.2 fL (7.5-11.2); Platelet Count 362 10^3/uL (150-450); Red Blood Count 3.68 10^6/uL (3.63-4.92); Red Cell Distribution Width 17.7 % (12-17); White Blood Count 8.7 10^3/uL (3.8-11.8)
[2023-04-25 19:23] LABS: Albumin 3.8 g/dL (3.2-5.2); C Reactive Protein 14.19 mg/L (<8.01); Creatinine, Serum 2.62 mg/dL (0.51-0.95); Globulin 3.9 g/dL (2-4); Total Protein 7.7 g/dL (6.4-8.9); eGFR CKD-EPI 19.7 (>60)
[2023-04-25] MEDS ORDERED: KCL 20 MEQ/100 ML IVPREMIX 20 MEQ/100 ML BAG IV ONE (19:31)
[2023-04-25 23:01] LABS: Urine Appearance Cloudy; Urine Bilirubin Negative (Negative); Urine Blood 2+ (Negative); Urine Color Yellow; Urine Glucose Negative (Negative); Urine Ketones Negative (Negative); Urine Nitrite Negative (Negative); Urine Protein Negative (Negative); Urine Specific Gravity 1.008 (1.002-1.030); Urine Urobilinogen Negative (Negative)
[2023-04-25 23:04] LABS: Urine Bacteria 1+ (Absent); Urine Red Blood Cell Trace(0-2/hpf) (Absent); Urine Squamous Epithelial Cell Present (Absent); Urine White Blood Cell Absent (Absent)
[2023-04-25] MEDS ORDERED: Albuterol HFA INHALER 8 gm MDI INH PRN (23:04)
[2023-04-26] MEDS: Enoxaparin 30 MG/0.3 ML SYR SUBCUT SCH ×3 (03:10→21:00)
[2023-04-26] MEDS: Lactated Ringers 1000 ml BAG 1,000 ML IV SCH ×2 (06:04→14:53)
[2023-04-26 06:36] LABS: Calcium 8.9 mg/dL (8.6-10.3); Creatinine, Serum 2.2 mg/dL (0.51-0.95); Potassium 2.8 mmol/L (3.5-5.0); eGFR CKD-EPI 24.3 (>60)
[2023-04-26 06:56] LABS: INR 1.22 (0.88-1.18)
[2023-04-26] MEDS: FLUTICAS/UMECLI/VILANT 200-62.5-25 MDI (NF) INH SCH (07:53)
[2023-04-26 08:09] LABS: Magnesium 1.4 mg/dL (1.9-2.7)
[2023-04-26] MEDS ORDERED: Magnesium Sulfate IV 3 GM in NS 0.9% 100 ml BAG 100 ML IVPB ONE (08:35)
[2023-04-26] MEDS: KCL 20 MEQ/100 ML IVPREMIX 20 MEQ/100 ML BAG IV SCH ×2 (08:48→14:53)
[2023-04-26] MEDS: Fluticasone NASAL SPRAY 50MCG 16 gm SPRAY BTL INTRANASAL SCH (08:49)
[2023-04-27] MEDS: FLUTICAS/UMECLI/VILANT 200-62.5-25 MDI (NF) INH SCH (07:35)
[2023-04-27 08:28] LABS: Calcium 8.4 mg/dL (8.6-10.3); Magnesium 1.9 mg/dL (1.9-2.7); Potassium 3.3 mmol/L (3.5-5.0)
[2023-04-27 08:33] LABS: Creatinine, Serum 1.67 mg/dL (0.51-0.95); eGFR CKD-EPI 33.8 (>60)
[2023-04-27] MEDS: KCL 20 MEQ/100 ML IVPREMIX 20 MEQ/100 ML BAG IV SCH ×2 (09:33→11:44)
[2023-04-27] MEDS: Fluticasone NASAL SPRAY 50MCG 16 gm SPRAY BTL INTRANASAL SCH (09:33)
[2023-04-27 14:09] VITALS: BP 110/69
== END 2023-04-27 14:50 | disposition home or self-care (01) ==
LOC: ED 17:53 → EDHOLD 17:53 → SUATTDRO 22:58 → EDHOLD 04-26 02:41 → MED 04-26 03:35
PROVIDERS: ADMIT Internal Medicine; ATTEND Internal Medicine

== ENCOUNTER 2023-08-09 10:51 | Inpatient (IN) ==
[2023-08-09] MEDS ORDERED: Polyethylene Glycol 3350 17 GM PACKET PO PRN (13:30)
[2023-08-09] MEDS ORDERED: Acetaminophen IV 1 GM/100ML 1,000 MG/100 ML BAG IV PRN (13:31)
[2023-08-09 13:36] LABS: ABS Basophils 0.1 10^3/uL (0.0-0.1); ABS Eosinophils 0.2 10^3/uL (0.0-0.5); ABS Lymphocytes 2.4 10^3/uL (1.0-4.8); ABS Monocytes 0.9 10^3/uL (0.0-0.9); ABS Neutrophils 5.8 10^3/uL (1.5-7.6); Eosinophil % 1.8 %; Hematocrit 35.3 % (35-45); Hemoglobin 11.8 g/dL (11.5-14.3); Mean Corpuscular Hemoglobin 29.7 pg (27-33); Mean Corpuscular Hgb Conc 33.5 g/dL (31-36); Mean Corpuscular Volume 88.8 fL (80-97); Mean Platelet Volume 8.6 fL (7.5-11.2); Platelet Count 302 10^3/uL (150-450); Red Blood Count 3.98 10^6/uL (3.63-4.92); Red Cell Distribution Width 15.2 % (12-17); White Blood Count 9.3 10^3/uL (3.8-11.8)
[2023-08-09 13:47] LABS: INR 1.06 (0.83-1.13)
[2023-08-09 14:29] LABS: Albumin 3.9 g/dL (3.2-5.2); Albumin/Globulin Ratio 1.2 (1-3); Creatinine, Serum 1.41 mg/dL (0.51-0.95); Globulin 3.2 g/dL (2-4); Potassium 3.8 mmol/L (3.5-5.0); Total Bilirubin 0.6 mg/dL (0.2-1.0); Total Protein 7.1 g/dL (6.4-8.9); eGFR CKD-EPI 41.1 (>60)
[2023-08-09] MEDS ORDERED: Enoxaparin 30 MG/0.3 ML SYR SUBCUT SCH (18:00)
[2023-08-10] MEDS ORDERED: Potassium Chlor 20 meq TAB.ER PO ONE (07:08)
[2023-08-10] MEDS: FLUTICAS/UMECLI/VILANT 200-62.5-25 MDI (NF) INH SCH (07:47)
[2023-08-10] MEDS ORDERED: Acetaminophen IV 1 GM/100ML 1,000 MG/100 ML BAG IV SCH (14:00)
[2023-08-10] MEDS ORDERED: Senna TAB 8.6 mg TAB PO PRN (16:50)
[2023-08-10] MEDS ORDERED: Enoxaparin 40 MG/0.4 ML SYR SUBCUT ONE (17:39)
[2023-08-10 20:26] LABS: Hematocrit 35.4 % (35-45); Hemoglobin 11.6 g/dL (11.5-14.3); Mean Corpuscular Hemoglobin 29.2 pg (27-33); Mean Corpuscular Hgb Conc 32.7 g/dL (31-36); Mean Corpuscular Volume 89.4 fL (80-97); Mean Platelet Volume 8.4 fL (7.5-11.2); Platelet Count 320 10^3/uL (150-450); Red Blood Count 3.97 10^6/uL (3.63-4.92); Red Cell Distribution Width 15.3 % (12-17); White Blood Count 14.7 10^3/uL (3.8-11.8)
[2023-08-10 20:47] LABS: Calcium 9.2 mg/dL (8.6-10.3); Potassium 4.5 mmol/L (3.5-5.0); Total Bilirubin 0.6 mg/dL (0.2-1.0)
[2023-08-10 20:53] LABS: Albumin/Globulin Ratio 1.3 (1-3); C Reactive Protein 121.98 mg/L (<8.01); Creatinine, Serum 1.38 mg/dL (0.51-0.95); Globulin 3.2 g/dL (2-4); Total Protein 7.2 g/dL (6.4-8.9); eGFR CKD-EPI 42.2 (>60)
[2023-08-10 20:57] LABS: ABS Basophils 0.1 10^3/uL (0.0-0.1); ABS Eosinophils 0.1 10^3/uL (0.0-0.5); ABS Lymphocytes 1.7 10^3/uL (1.0-4.8); ABS Monocytes 1.6 10^3/uL (0.0-0.9); ABS Neutrophils 11.3 10^3/uL (1.5-7.6); ABS Nucleated RBC 0.01 10^3/ul; Eosinophil % 0.8 %; Lymphocyte % 11.6 %
[2023-08-10] MEDS: cefTRIAXone 1 gm/50 mL D5W 1 GM/50 ML BAG IV SCH (21:20)
[2023-08-10] MEDS ORDERED: Lactated Ringers 1000 ml BAG 1,000 ML IV ONE (21:24)
[2023-08-11 01:30] LABS: Urine Appearance Clear; Urine Bilirubin Negative (Negative); Urine Blood Negative (Negative); Urine Color Yellow; Urine Glucose Negative (Negative); Urine Ketones Negative (Negative); Urine Nitrite Negative (Negative); Urine Protein 1+(30 mg/dL) (Negative); Urine Urobilinogen Negative (Negative)
[2023-08-11 01:38] LABS: Urine Bacteria 1+ (Absent); Urine Red Blood Cell Trace(0-2/hpf) (Absent); Urine Renal Epithelial Cells Present (Absent); Urine Squamous Epithelial Cell Present (Absent); Urine White Blood Cell 2+(11-20/hpf) (Absent)
[2023-08-11] MEDS ORDERED: Lactated Ringers 1000 ml BAG 1,000 ML IV ONE (01:52)
[2023-08-11 04:12] LABS: ABS Basophils 0.1 10^3/uL (0.0-0.1); ABS Eosinophils 0.1 10^3/uL (0.0-0.5); ABS Lymphocytes 2.7 10^3/uL (1.0-4.8); ABS Monocytes 1.3 10^3/uL (0.0-0.9); ABS Neutrophils 8.4 10^3/uL (1.5-7.6); Eosinophil % 0.9 %; Hematocrit 33.4 % (35-45); Lymphocyte % 21.5 %; Mean Corpuscular Hemoglobin 29.6 pg (27-33); Mean Corpuscular Hgb Conc 32.8 g/dL (31-36); Mean Platelet Volume 8.3 fL (7.5-11.2); Platelet Count 270 10^3/uL (150-450); Red Blood Count 3.72 10^6/uL (3.63-4.92); Red Cell Distribution Width 15.5 % (12-17); White Blood Count 12.5 10^3/uL (3.8-11.8)
[2023-08-11 04:22] LABS: Calcium 8.4 mg/dL (8.6-10.3); Magnesium 1.7 mg/dL (1.9-2.7); Potassium 4.2 mmol/L (3.5-5.0)
[2023-08-11 04:28] LABS: Creatinine, Serum 1.38 mg/dL (0.51-0.95); eGFR CKD-EPI 42.2 (>60)
[2023-08-11] MEDS: Acetaminophen IV 1 GM/100ML 1,000 MG/100 ML BAG IV PRN ×2 (04:33→20:52)
[2023-08-11] MEDS ORDERED: Magnesium Sulfate 2 gm BAG 2 GM/50 ML BAG IVPB ONE (05:49)
[2023-08-11 08:22] LABS: Rapid COVID-19 Molecular Undetected (Undetected)
[2023-08-11] MEDS: FLUTICAS/UMECLI/VILANT 200-62.5-25 MDI (NF) INH SCH (08:25)
[2023-08-11] MEDS: Albuterol HFA INHALER 8 gm MDI INH PRN (08:28)
[2023-08-11] MEDS ORDERED: Bupivacaine 0.5% W/EPI SDV 10 ML VIAL INJ ONE (10:52)
[2023-08-11] MEDS ORDERED: Enoxaparin 40 MG/0.4 ML SYR SUBCUT ONE (17:54)
[2023-08-11] MEDS: cefTRIAXone 1 gm/50 mL D5W 1 GM/50 ML BAG IV SCH (22:49)
[2023-08-12] MEDS: FLUTICAS/UMECLI/VILANT 200-62.5-25 MDI (NF) INH SCH (07:42)
[2023-08-12] MEDS: Albuterol HFA INHALER 8 gm MDI INH PRN (07:42)
[2023-08-12 09:39] LABS: ABS Basophils 0.1 10^3/uL (0.0-0.1); ABS Eosinophils 0.3 10^3/uL (0.0-0.5); ABS Lymphocytes 1.7 10^3/uL (1.0-4.8); ABS Monocytes 0.5 10^3/uL (0.0-0.9); ABS Nucleated RBC 0.01 10^3/ul; Eosinophil % 2.8 %; Hematocrit 35.5 % (35-45); Hemoglobin 11.6 g/dL (11.5-14.3); Lymphocyte % 16.3 %; Mean Corpuscular Hemoglobin 29.3 pg (27-33); Mean Corpuscular Hgb Conc 32.6 g/dL (31-36); Mean Platelet Volume 8.3 fL (7.5-11.2); Nucleated Red Blood Cells % 0.1 /100 WBC (0.0-0.4); Platelet Count 304 10^3/uL (150-450); Red Blood Count 3.94 10^6/uL (3.63-4.92); Red Cell Distribution Width 15.4 % (12-17); White Blood Count 10.6 10^3/uL (3.8-11.8)
[2023-08-12 09:49] LABS: Calcium 8.9 mg/dL (8.6-10.3); Creatinine, Serum 1.24 mg/dL (0.51-0.95); Magnesium 2.2 mg/dL (1.9-2.7); Potassium 4.2 mmol/L (3.5-5.0)
[2023-08-12] MEDS: Acetaminophen IV 1 GM/100ML 1,000 MG/100 ML BAG IV PRN (14:00)
[2023-08-12] MEDS ORDERED: Enoxaparin 40 MG/0.4 ML SYR SUBCUT SCH (21:00)
[2023-08-13] MEDS: FLUTICAS/UMECLI/VILANT 200-62.5-25 MDI (NF) INH SCH (07:04)
[2023-08-13] MEDS: Albuterol HFA INHALER 8 gm MDI INH PRN (07:05)
[2023-08-13] MEDS: Acetaminophen IV 1 GM/100ML 1,000 MG/100 ML BAG IV PRN ×2 (14:21→21:40)
[2023-08-14] MEDS: FLUTICAS/UMECLI/VILANT 200-62.5-25 MDI (NF) INH SCH (07:37)
[2023-08-14] MEDS: Albuterol HFA INHALER 8 gm MDI INH PRN (07:37)
[2023-08-14 07:56] LABS: ABS Basophils 0.1 10^3/uL (0.0-0.1); ABS Eosinophils 0.4 10^3/uL (0.0-0.5); ABS Lymphocytes 2.1 10^3/uL (1.0-4.8); ABS Monocytes 0.8 10^3/uL (0.0-0.9); ABS Neutrophils 3.7 10^3/uL (1.5-7.6); Eosinophil % 6.1 %; Hemoglobin 10.2 g/dL (11.5-14.3); Lymphocyte % 29.3 %; Mean Corpuscular Hemoglobin 30.3 pg (27-33); Mean Corpuscular Hgb Conc 33.9 g/dL (31-36); Mean Corpuscular Volume 89.3 fL (80-97); Mean Platelet Volume 8.4 fL (7.5-11.2); Platelet Count 323 10^3/uL (150-450); Red Blood Count 3.36 10^6/uL (3.63-4.92); Red Cell Distribution Width 15.4 % (12-17); White Blood Count 7.1 10^3/uL (3.8-11.8)
[2023-08-14] MEDS: Acetaminophen IV 1 GM/100ML 1,000 MG/100 ML BAG IV PRN ×2 (09:22→20:43)
[2023-08-14] MEDS ORDERED: ceFAZolin 2 GM in NS PREMIX 2 GM/100 ML BAG IVPB ONE (14:42)
[2023-08-14] MEDS ORDERED: Dexamethasone IV 4 MG/ML VIAL 1 ml VIAL ONE ×2 (15:18→18:05)
[2023-08-14] MEDS ORDERED: ROPIVACAINE 5 MG/ML 30 ML BTL (0.5%) ONE (15:19)
[2023-08-14] MEDS ORDERED: Propofol 10 MG/ML 20 ML BTL ONE (15:34)
[2023-08-14] MEDS ORDERED: Rocuronium 50 mg VIAL 10 mg/ml 5 ml VIAL (50 mg) ONE (15:35)
[2023-08-14] MEDS ORDERED: Lidocaine 2% PF 5 ML VIAL ONE (15:35)
[2023-08-14] MEDS ORDERED: Dexmedetomidine 200 mcg/2 ml 2 ml VIAL (200 mcg) ONE (16:32)
[2023-08-14] MEDS ORDERED: Bupivacaine 0.5% SDV PF 30ML VIAL ONE (16:51)
[2023-08-14] MEDS ORDERED: fentaNYL 100 mcg/2 ml 50 MCG/ML VIAL ONE (17:12)
[2023-08-14] MEDS ORDERED: Ondansetron 4 mg VIAL 2 MG/ML 2 ml VIAL ONE (18:05)
[2023-08-14] MEDS: Enoxaparin 40 MG/0.4 ML SYR SUBCUT SCH (21:34)
[2023-08-15] MEDS: ceFAZolin 1 GM X 3 DOSES POST-OP Q8H (AddVan) IVPB SCH ×2 (01:53→08:26)
[2023-08-15 06:44] LABS: ABS Lymphocytes 0.8 10^3/uL (1.0-4.8); ABS Monocytes 0.1 10^3/uL (0.0-0.9); ABS Neutrophils 5.1 10^3/uL (1.5-7.6); ABS Nucleated RBC 0.01 10^3/ul; Hematocrit 32.6 % (35-45); Hemoglobin 10.9 g/dL (11.5-14.3); Lymphocyte % 12.7 %; Mean Corpuscular Hemoglobin 29.6 pg (27-33); Mean Corpuscular Hgb Conc 33.3 g/dL (31-36); Mean Corpuscular Volume 88.8 fL (80-97); Mean Platelet Volume 8.1 fL (7.5-11.2); Nucleated Red Blood Cells % 0.1 /100 WBC (0.0-0.4); Platelet Count 355 10^3/uL (150-450); Red Blood Count 3.67 10^6/uL (3.63-4.92); Red Cell Distribution Width 15.2 % (12-17); White Blood Count 5.9 10^3/uL (3.8-11.8)
[2023-08-15 07:01] LABS: Albumin 3.3 g/dL (3.2-5.2); Calcium 9.4 mg/dL (8.6-10.3); Creatinine, Serum 1.07 mg/dL (0.51-0.95); Globulin 3.4 g/dL (2-4); Potassium 4.6 mmol/L (3.5-5.0); Total Bilirubin 0.4 mg/dL (0.2-1.0); Total Protein 6.7 g/dL (6.4-8.9); eGFR CKD-EPI 57.3 (>60)
[2023-08-15] MEDS ORDERED: Magnesium Hydroxide LIQ 30 ML UDC PO PRN (08:57)
[2023-08-15] MEDS: Magnesium Hydroxide LIQ 30 ML UDC PO SCH ×2 (09:49→19:57)
[2023-08-15] MEDS: FLUTICAS/UMECLI/VILANT 200-62.5-25 MDI (NF) INH SCH ×2 (10:04→10:38)
[2023-08-15] MEDS: Albuterol HFA INHALER 8 gm MDI INH PRN (10:38)
[2023-08-15] MEDS ORDERED: Clindamycin 600 MG/NS BAG(*) 600 MG/50 ML BAG IV SCH (14:00)
[2023-08-15] MEDS: Enoxaparin 40 MG/0.4 ML SYR SUBCUT SCH (19:43)
[2023-08-15] MEDS: Morphine 4 MG/ML VIAL (1 ml) IV PRN (21:39)
[2023-08-16] MEDS: FLUTICAS/UMECLI/VILANT 200-62.5-25 MDI (NF) INH SCH (08:28)
[2023-08-16] MEDS: Albuterol HFA INHALER 8 gm MDI INH PRN ×3 (08:29→21:15)
[2023-08-16] MEDS: Magnesium Hydroxide LIQ 30 ML UDC PO SCH ×2 (08:52→21:13)
[2023-08-16] MEDS: Acetaminophen IV 1 GM/100ML 1,000 MG/100 ML BAG IV PRN (08:57)
[2023-08-16 11:37] LABS: Rapid COVID-19 Molecular Undetected (Undetected)
[2023-08-16] MEDS: Morphine 4 MG/ML VIAL (1 ml) IV PRN (19:57)
[2023-08-16] MEDS: Enoxaparin 40 MG/0.4 ML SYR SUBCUT SCH (21:10)
[2023-08-17] MEDS: Magnesium Hydroxide LIQ 30 ML UDC PO SCH (08:51)
[2023-08-17 10:23] VITALS: BP 135/82
[2023-08-17] MEDS: FLUTICAS/UMECLI/VILANT 200-62.5-25 MDI (NF) INH SCH (10:32)
[2023-08-17] MEDS: Albuterol HFA INHALER 8 gm MDI INH PRN (10:33)
== END 2023-08-17 12:00 | DRG 563 ==
LOC: ED 10:51 → EDHOLD 12:03 → INTOOBSV 12:03 → SUATTDRO 12:03 → SSU 16:01 → SUATTDRO 08-12 13:45 → SSU 08-15 18:41
PROVIDERS: ADMIT Student in an Organized Health Care Education/Training Program; ATTEND Internal Medicine

== ENCOUNTER 2023-09-04 13:10 | Observation (INO) ==
[~2023-09-04 13:10] MED LIST changes: +Buffered Lidocaine 1% SYRIN 1 ml INTRADERM ONE; -Buffered Lidocaine 1% SYRIN* 1 ML/SYRINGE INTRADERM ONE; -Dexamethasone IV* 4 MG/ML 1 ML (4 MG) IV SLOW PU ONE; -Lactated Ringers 1000 ML Bag* 1,000 ML IV SCH; +Lactated Ringers 1000 ml BAG 1,000 ML IV SCH; +Naloxone 0.4 mg VIAL 0.4 mg/ml 1 ml VIAL IV PRN; +Ondansetron 4 mg VIAL 2 MG/ML 2 ml VIAL IV PRN
[2023-09-04] MEDS ORDERED: ceFAZolin 2 GM in NS PREMIX 2 GM/100 ML BAG IVPB ONE (14:03)
[2023-09-04 14:34] LABS: Rapid COVID-19 Molecular Undetected (Undetected)
[2023-09-04] MEDS ORDERED: Lidocaine 2% PF 5 ML VIAL ONE (15:27)
[2023-09-04] MEDS ORDERED: Dexamethasone IV 4 MG/ML VIAL 1 ml VIAL ONE ×2 (15:27→17:25)
[2023-09-04] MEDS ORDERED: Ondansetron 4 mg VIAL 2 MG/ML 2 ml VIAL ONE ×2 (15:27→20:13)
[2023-09-04] MEDS ORDERED: Propofol 10 MG/ML 20 ML BTL ONE (15:27)
[2023-09-04] MEDS ORDERED: Glycopyrrolate IV 0.2 MG/ML 1 ML VIAL ONE (15:27)
[2023-09-04] MEDS ORDERED: fentaNYL 100 mcg/2 ml 50 MCG/ML VIAL ONE ×2 (15:28→20:13)
[2023-09-04] MEDS ORDERED: Midazolam 2 mg/2 ml VIAL 1 mg/ml 2 ml VIAL (2 mg) ONE (15:28)
[2023-09-04] MEDS ORDERED: Bupivacaine 0.5% SDV PF 30ML VIAL ONE (16:33)
[2023-09-04] MEDS ORDERED: Magnesium Hydroxide LIQ 30 ML UDC PO PRN ×2 (16:54→17:08)
[2023-09-04] MEDS ORDERED: Ondansetron ODT 4 mg TAB 4 MG TAB PO PRN (16:54)
[2023-09-04] MEDS ORDERED: Lactulose 30 ml UDC PO PRN (16:54)
[2023-09-04] MEDS ORDERED: Ondansetron 4 mg VIAL 2 MG/ML 2 ml VIAL IV PRN ×2 (16:54→20:16)
[2023-09-04] MEDS ORDERED: Polyethylene Glycol 3350 17 GM PACKET PO PRN (17:08)
[2023-09-04] MEDS ORDERED: Albuterol HFA INHALER 8 gm MDI INH PRN (17:08)
[2023-09-04] MEDS ORDERED: Naloxone Nasal Spray 4 MG/0.1 ML NASAL.SPR INTRANASAL PRN (17:08)
[2023-09-04] MEDS ORDERED: Senna TAB 8.6 mg TAB PO PRN (17:08)
[2023-09-04] MEDS ORDERED: Sodium Phosphate ADULT ENEMA 133 ML BTL PR PRN (17:08)
[2023-09-04] MEDS ORDERED: Acetaminophen IV 1 GM/100ML 1,000 MG/100 ML BAG IV ONE (17:25)
[2023-09-04] MEDS ORDERED: Phenylephrine IV 10 MG/ML 1 ml VIAL ONE (18:58)
[2023-09-04] MEDS ORDERED: ceFAZolin VIAL VIAL ONE (19:41)
[2023-09-04] MEDS ORDERED: Naloxone 0.4 mg VIAL 0.4 mg/ml 1 ml VIAL IV PRN (20:16)
[2023-09-04] MEDS ORDERED: fentaNYL 100 mcg/2 ml 50 MCG/ML VIAL IV PRN (20:16)
[2023-09-04] MEDS: fentaNYL 100 mcg/2 ml 50 MCG/ML VIAL IV PRN ×4 (20:17→20:56)
[2023-09-04] MEDS: Morphine 2 MG/ML SYRINGE IV PRN (22:38)
[2023-09-04] MEDS: Magnesium Hydroxide LIQ 30 ML UDC PO SCH (22:44)
[2023-09-04] MEDS: ceFAZolin 1 GM ADVAN 1 GM in NS 0.9% 50 ML 50 ML IVPB SCH (23:53)
[2023-09-05] MEDS: Morphine 2 MG/ML SYRINGE IV PRN ×2 (02:40→07:54)
[2023-09-05 05:13] LABS: Urine Appearance Clear; Urine Bilirubin Negative (Negative); Urine Blood Negative (Negative); Urine Color Yellow; Urine Glucose Negative (Negative); Urine Ketones Negative (Negative); Urine Nitrite Negative (Negative); Urine Protein Negative (Negative); Urine Specific Gravity 1.016 (1.002-1.030); Urine Urobilinogen Negative (Negative)
[2023-09-05 07:37] LABS: Anion Gap 7 mmol/L (2-16); CO2 Carbon Dioxide 26 mmol/L (22-32); Chloride 103 mmol/L (101-111); Sodium 136 mmol/L (135-145)
[2023-09-05 07:39] LABS: Blood Urea Nitrogen 18 mg/dL (6-24); Creatinine, Serum 1.24 mg/dL (0.51-0.95); Glucose 133 mg/dL (70-100)
[2023-09-05] MEDS: FLUTICAS/UMECLI/VILANT 200-62.5-25 MDI (NF) INH SCH (07:50)
[2023-09-05] MEDS: Albuterol/Ipratropium NEB.SOL (2.5/0.5 MG) 3 ML NEB.SOLN INH SCH ×4 (07:50→19:12)
[2023-09-05] MEDS: ceFAZolin 1 GM ADVAN 1 GM in NS 0.9% 50 ML 50 ML IVPB SCH ×2 (07:54→16:05)
[2023-09-05] MEDS: Vitamin THERAPEUTIC TAB PO SCH (07:56)
[2023-09-05] MEDS: Magnesium Hydroxide LIQ 30 ML UDC PO SCH ×2 (07:56→20:42)
[2023-09-05] MEDS: Liraglutide (NF) 18 MG/3 ML SUBCUT SCH (07:57)
[2023-09-05] MEDS: Fluticasone NASAL SPRAY 50MCG 16 gm SPRAY BTL INTRANASAL SCH (07:57)
[2023-09-05 08:08] LABS: Hematocrit 34.2 % (35-45); Hemoglobin 11.5 g/dL (11.5-14.3); Mean Platelet Volume 9.1 fL (7.5-11.2); Platelet Count 280 10^3/uL (150-450)
[2023-09-05 08:54] LABS: Potassium, Whole Blood 4.7 mmol/L (3.4-4.5)
[2023-09-05] MEDS ORDERED: Enoxaparin 40 MG/0.4 ML SYR SUBCUT SCH (12:00)
[2023-09-06 06:10] LABS: Hematocrit 30.9 % (35-45); Hemoglobin 10.2 g/dL (11.5-14.3); Mean Platelet Volume 9.6 fL (7.5-11.2); Platelet Count 233 10^3/uL (150-450)
[2023-09-06] MEDS: FLUTICAS/UMECLI/VILANT 200-62.5-25 MDI (NF) INH SCH (07:54)
[2023-09-06] MEDS: Albuterol/Ipratropium NEB.SOL (2.5/0.5 MG) 3 ML NEB.SOLN INH SCH ×2 (07:54→11:09)
[2023-09-06] MEDS: Vitamin THERAPEUTIC TAB PO SCH (08:22)
[2023-09-06] MEDS: Magnesium Hydroxide LIQ 30 ML UDC PO SCH (08:23)
[2023-09-06] MEDS: Fluticasone NASAL SPRAY 50MCG 16 gm SPRAY BTL INTRANASAL SCH (08:28)
[2023-09-06] MEDS: Liraglutide (NF) 18 MG/3 ML SUBCUT SCH (08:28)
[2023-09-06 10:10] VITALS: BP 120/63
== END 2023-09-06 13:50 | disposition home or self-care (01) ==
LOC: OR 13:10 → SSU 13:10
PROVIDERS: ADMIT Orthopaedic Surgery; ATTEND Orthopaedic Surgery